=== PATIENT | female | born 1940 | race Caucasian/White ===

== ENCOUNTER → 2017-12-01 13:57 | Outpatient (CLI) | payer MEDICARE, SELFPAY ==
--- NOTE | 2017-12-01 14:00 | BI_ITS ---
MAMMOGRAPHY - BILATERAL SCREENING REASON FOR EXAM: Female, 77 years old. Routine annual screening examination. PERTINENT HISTORY: Non-contributory. TECHNIQUE: Digital bilateral breast alli (3D mammographic acquisition) in the CC and MLO projections. 2-D mediolateral oblique (MLO) and craniocaudad (CC) views of both breasts were obtained. CAD: Full Field Digital Mammography with Computer Added Detection was performed. COMPARISON: Comparison is made with prior study dated August 07, 2016 and September 25, 2014. FINDINGS: Breast Composition: There are scattered areas of fibroglandular density. There are no dominant masses or suspicious calcifications. No other significant abnormalities are identified. There has been no significant change since the prior study. BI/SCREENING MAMM (CAD), BILAT IMPRESSION: Stable bilateral screening mammogram. Yearly follow-up mammogram recommended. (A) ASSESSMENT CATEGORY: BIRADS Category 1: Negative. A letter regarding these results will be sent to the patient by the facility within 30 days. Approximately 10% of breast cancers are not detected by mammography. A normal mammogram should not delay biopsy of a clinically suspicious abnormality. [id number] Electronically Signed: Constantine Marquez MD at 14:09 EDT Tel [phone], Service support ,
== END ==
PROVIDERS: Family Provider Internal Medicine; PCP Internal Medicine; Visit Provider Internal Medicine
DX: Z12.31 Encounter for screening mammogram for malignant neoplasm of breast (principal)
CPT/HCPCS: 77063; 77067

== ENCOUNTER → 2017-12-15 11:27 | Outpatient (CLI) | payer MEDICARE, SELFPAY ==
[2017-12-15 11:35] LABS: Bacteria 0 SEEN /hpf (None Seen); Mucous, Urine 0 SEEN /hpf (<or=2+)
[2017-12-15 14:06] LABS: Absolute Lymphocyte Count 1.95 X10^3/ul (0.83-4.51); Absolute Neutrophil Count 4.4 X10^3/uL (2.0-7.7); Basophil# 0.03 X10^3/uL; Basophil% 0.4 % (0-1); Eosinophil# 0.11 X10^3/uL; Eosinophils% 1.5 % (0-5); Hematocrit 44.7 % (37-47); Hemoglobin 14.7 g/dl (12.0-15.0); Lymphocyte # 1.95 X10^3/ul (4.0); Lymphocyte % 27.4 % (19-41); Mean Corp Hgb Conc 32.9 g/gl (32-36); Mean Corpuscular Hgb 28.2 pg (27.0-32.0); Mean Corpuscular Volume 85.8 fL (81-99); Mean Platelet Vol. 10.1 fl (6.2-12.0); Monocyte# 0.67 X10^3/uL; Monocyte% 9.4 % (0-10); Neutrophil # 4.36 X10^3/uL (2.7-7.7); Neutrophil % 61.3 % (47-70); Platelet Count 239 K/mm3 (150-450); RBC Distribution Width CV 13.5 % (11.6-14.6); RBC Distribution Width SD 41.9 fl (35.1-43.9); Red Blood Count 5.21 M/mm3 (4.2-5.4); White Blood Count 7.1 K/mm3 (4.4-11.0)
[2017-12-15 14:18] LABS: POSITIVE COUNT NO; POSITIVE DIFFERENTIAL NO; POSITIVE MORPHOLOGY NO
[2017-12-15 14:28] LABS: Color, Urine Yellow (Yellow); Glucose, Dipstick Normal (Normal); Ketone-Dipstick Negative (Negative); Leukocyte Esterase-Dipstick 100 /ul (Negative); Nitrite-Dipstick Negative (Negative); Occult Blood-Urine 10 /ul (Negative); Protein-Dipstick 15 mg/dl (Negative); Specific Gravity, Urine 1.015 (1.002-1.030); Urine Bilirubin Dipstick Negative (Negative); Urine Clarity Sl. Cloudy (Clear); Urine Urobilinogen Normal (Normal)
[2017-12-15 14:29] LABS: ALB/GLOB Ratio 1.1 RATIO (0.9-2.4); AST(SGOT) 18 U/L (15-37); Alanine Aminotransfer ALT/SGPT 22 U/L (13-56); Albumin, Serum 3.7 g/dL (3.2-5.0); Alkaline Phosphatase 90 U/L (45-117); Anion Gap 6 (5-15); BUN 16 mg/dL (7-18); BUN/Creat Ratio 23.1 RATIO (10-20); Calcium,Total 8.7 mg/dL (8.5-10.1); Chloride 104 mmol/L (98-107); Cholesterol 144 mg/dL (200); Creatinine, Serum 0.69 mg/dL (0.55-1.02); EST Glomerular Filtration Rate 88 mL/min (>60); Est Glom Filt Rate - Afr Amer 106 mL/min (>60); Free T3 2.6 pg/mL (2.18-3.98); Globulin 3.5 g/dL (2.2-4.2); Glucose 91 mg/dL (74-106); High Density Lipoprotein 56 mg/dL; Potassium 3.9 mmol/L (3.5-5.1); Protein, Total 7.2 g/dL (6.4-8.2); Sodium Level 140 mmol/L (136-145); T4 Free Direct 1.03 ng/dL (0.76-1.46); Thyroid Stim Hormone (TSH) 2.93 uIU/mL (0.358-3.74); Triglycerides 96 mg/dL; Very Low Density Lipoprotein 19 mg/dL (5-40)
[2017-12-15 14:41] LABS: Red Blood Cells-Urine 0-5 SEEN /hpf (0-5); Squamous Epithelial Cells - UA 0-5 SEEN /hpf (5-10); White Blood Cells 10-25 SEEN /hpf (0-5)
[2017-12-15 14:50] LABS: Microalbumin,Random Urine 59.6 mg/L (NO RANGE EST.); Microalbumin:Creatinine Ratio 60.5 mg/g CRE (<30 mg/g CRE)
== END ==
PROVIDERS: Family Provider Internal Medicine; PCP Internal Medicine; Visit Provider Internal Medicine
DX: E03.9 Hypothyroidism, unspecified (principal); E78.4 Other hyperlipidemia; R73.01 Impaired fasting glucose
CPT/HCPCS: 36415; 80053; 80061; 81001; 82043; 82570; 84439; 84443; 84481; 85025

== ENCOUNTER → 2018-03-16 16:19 | Outpatient (CLI) | payer MEDICARE, SELFPAY ==
--- NOTE | 2018-03-16 16:22 | RAD_ITS ---
STUDY: X-RAY CHEST REASON FOR EXAM: Female, 77 years old. Cough. TECHNIQUE: Frontal and lateral views of the chest. COMPARISON: 07/02/2017 FINDINGS: There is hyperinflation of the lungs consistent with chronic obstructive lung disease (COPD). Increased density in the lung bases, especially the right, which could be mild infiltrates. No effusions. There is no demonstrated pleural abnormality. Normal size heart. Normal mediastinum and paola. Normal visualized pulmonary arteries. Normal visualized aortic arch and descending thoracic aorta. There are diffuse degenerative changes of the visualized thoracic spine. Normal visualized ribs, clavicles, and shoulders. There is no demonstrated abnormality of the visualized soft tissue structures of the upper abdomen. RAD/Chest PA and Lateral IMPRESSION: (COPD). Increased density in the lung bases, especially the right, which could be mild infiltrates. Electronically Signed: Elmer Ortiz MD at 23:54 EDT , Service support ,
== END ==
PROVIDERS: Family Provider Internal Medicine; PCP Internal Medicine; Visit Provider Physician Assistant
DX: R05 Cough (principal)
CPT/HCPCS: 71046

== ENCOUNTER 2018-03-26 12:09 | Inpatient (IN) | payer MEDICARE, SELFPAY ==
[2018-03-26] VITALS (8 sets, daily range): BP systolic 88–146; BP diastolic 51–85; PULSE 77–114; RESP 16–40; TEMP 36.9–39.2; O2SAT 92–100; BMI 18.8; BMI 18.4
--- NOTE | 2018-03-26 12:34 | EKG12_ITS ---
Test Reason : ADMT Blood Pressure : / mmHG Vent. Rate : 086 BPM Atrial Rate : 086 BPM P-R Int : 156 ms QRS Dur : 080 ms QT Int : 350 ms P-R-T Axes : 066 061 063 degrees QTc Int : 418 ms Normal sinus rhythm Normal ECG When compared with ECG of 26-MAR-2018 12:11, MANUAL COMPARISON REQUIRED, DATA IS UNCONFIRMED Confirmed by HARIS LEYVA, LEAH ([id number]), editor producer WALKER PEDERSEN ([id number]) on 04/01/2018 2:38:19 PM Referred By: Cleo Fall Confirmed By:LEAH CARBALLO MD
--- NOTE | 2018-03-26 12:36 | ED.DCSUM_ITS ---
- ER Visit Summary Date of Service: 03/26/18 Chief Complaint: Chest pain History of Present Illness: The patient is a 77 F presenting with chest pain. This started 2 days ago. Pain has been intermittent. She states it feels like an elephant sitting on her chest. She has mild shortness of breath. She has had a nonproductive cough. She denies nausea or vomiting. She has no PE/DVT risk factors. She has a history of hypercholesterolemia. She is not a smoker. Physical Examination: Vitals are stable. Patient is afebrile. Alert no acute distress. HEENT exam is unremarkable. Neck is supple. Lungs are clear and equal bilaterally. Heart is regular rate and rhythm. Abdomen is soft nontender nondistended. Extremities are unremarkable. Skin is warm and dry. No focal neurologic deficit. Remainder of exam is unremarkable. Emergency Department Course and Treatment: EKG is sinus rate of 85 with no acute ischemic changes. Chest x-ray shows no acute process. CBC shows a white count of 11.4. Chemistries unremarkable. Troponin is negative. Patient was given aspirin on arrival. On reevaluation she is resting comfortably. Discussed with the hospitalist for observation. Disposition: Observation Impression: Chest pain This note was generated with [employer] dictation software. It may contain incorrect words, spelling, and punctuation that were not noted in review of the chart prior to signing ED Disposition - Plan for ED Patient: Chief Complaint: Chest Pain Referrals: Abeba Castanon DO [Primary Care Provider] -
--- NOTE | 2018-03-26 12:37 | RAD_ITS ---
STUDY: X-RAY CHEST REASON FOR EXAM: Female, 77 years old. Chest pain, heaviness and asthma. TECHNIQUE: AP upright portable view. COMPARISON: 03/16/2018. FINDINGS: Pulmonary hyperinflation. No suspicious pulmonary nodules or infiltrates. There is no demonstrated pleural abnormality. Normal size heart. Normal mediastinum and paola. Normal visualized pulmonary arteries. Normal visualized aortic arch and descending thoracic aorta. Normal visualized thoracic spine. Normal visualized ribs, clavicles, and shoulders. There is no demonstrated abnormality of the visualized soft tissue structures of the upper abdomen. RAD/Chest 1 View (Portable) IMPRESSION: 1. No acute cardiopulmonary pathology. 2. COPD. 3. No interval change when compared to 03/16/2018. Electronically Signed: Jackson Stapleton MD at 13:08 EDT , Service support ,
[2018-03-26 12:45] LABS: Absolute Lymphocyte Count 1.52 X10^3/ul (0.83-4.51); Absolute Neutrophil Count 9.2 X10^3/uL (2.0-7.7); Basophil# 0.01 X10^3/uL; Basophil% 0.1 % (0-1); Eosinophil# 0.01 X10^3/uL; Eosinophils% 0.1 % (0-5); Hematocrit 44.5 % (37-47); Hemoglobin 14.6 g/dl (12.0-15.0); Lymphocyte # 1.52 X10^3/ul (4.0); Lymphocyte % 13.4 % (19-41); Mean Corp Hgb Conc 32.8 g/gl (32-36); Mean Corpuscular Volume 85.2 fL (81-99); Mean Platelet Vol. 9.3 fl (6.2-12.0); Monocyte# 0.61 X10^3/uL; Monocyte% 5.4 % (0-10); Neutrophil # 9.19 X10^3/uL (2.7-7.7); Neutrophil % 80.8 % (47-70); POSITIVE COUNT NO; POSITIVE DIFFERENTIAL NO; POSITIVE MORPHOLOGY NO; Platelet Count 259 K/mm3 (150-450); RBC Distribution Width CV 13.5 % (11.6-14.6); RBC Distribution Width SD 42.2 fl (35.1-43.9); Red Blood Count 5.22 M/mm3 (4.2-5.4); White Blood Count 11.4 K/mm3 (4.4-11.0)
[2018-03-26] MEDS: Aspirin 81 MG TAB.CHEW 324 MG PO (12:57)
[2018-03-26 13:03] LABS: Anion Gap 13 (5-15); BUN 19 mg/dL (7-18); BUN/Creat Ratio 23.5 RATIO (10-20); Calcium,Total 8.9 mg/dL (8.5-10.1); Chloride 100 mmol/L (98-107); Creatinine, Serum 0.81 mg/dL (0.55-1.02); EST Glomerular Filtration Rate 73 mL/min (>60); Est Glom Filt Rate - Afr Amer 88 mL/min (>60); Estimated Creatinine Clearance 50.74 ml/min; Glucose 100 mg/dL (74-106); Potassium 3.7 mmol/L (3.5-5.1); Sodium Level 137 mmol/L (136-145)
--- NOTE | 2018-03-26 16:11 | NURSING ---
DR BARNES FOR DR BANEGAS
--- NOTE | 2018-03-26 16:14 | HP.PCM_ITS ---
Problem List (1) Chest pain Status: Acute Qualifiers: Chest pain type: unspecified Qualified Code(s): R07.9 - Chest pain, unspecified (2) Hypothyroidism Status: Acute (3) COPD (chronic obstructive pulmonary disease) Status: Acute Qualifiers: COPD type: unspecified COPD Qualified Code(s): J44.9 - Chronic obstructive pulmonary disease, unspecified History of Present Illness Date of Admission: 03/26/18 Chief Complaint: Chest pain The patient is a 77 year old F with PMHx of Hypothyroidism, hyperlipidemia, COPD not on oxygen, who comes in with chest pain. Chest pain was described as chest pressure, substernal, with no radiation to the neck. No diaphoresis or dizziness or SOB. She has a cough which has been persistent for a while. [facility] and prescribed a 10 day course of antibiotics with no change. Denies fever, chills, palpitations, leg swelling. Vitals in the ED are Temp 98.5F, HR 77, BP 133/68, RR 16, Spo2 100% on 2L oxygen. Labs show WBC of 11.4, Hb 14.6, Plt 259, Na 137, K 3.7, Cl 100, HCO3 24, BUN 19 , Cr 0.81. Chest x-ray showed no acute cardiopulmonary process. Past Medical History Medical History: Medical History (Last Updated 03/16/18 @ 16:19 by Sandrita Jara) Asthma J45.909 Allergies No Known Allergies Allergy (Verified 03/16/18 16:17) Home Medications: Ambulatory Orders Medication Instructions Recorded Aspirin 81 mg PO QHS 07/02/17 Cholecalciferol (Vitamin D3) 4,000 unit PO LUNCH 07/02/17 [Vitamin D3] Levothyroxine [Synthroid] 50 mcg PO DAILY 07/02/17 Simvastatin [Zocor] 1 tab PO QHS 07/02/17 budesonide-formoterol HFA 160 1 puff INHALATION BID 03/16/18 mcg-4.5 mcg/actuation aerosol inhaler Amoxicillin [Amoxil] 1,000 mg PO Q12H 03/26/18 Surgical History: hysterectomy Psychiatric History: No pertinent psych hx PRACTICE DIRECTOR History: No pertinent PRACTICE DIRECTOR history Lives: Spouse/ Significant Other, With Family Smoking Status: Never smoker Tobacco Use: Non-smoker Alcohol: None Drugs: None - *Family History Maternal History Items: No pertinent history Paternal History Items: No pertinent history Review of Systems Constitutional: Reports: Weakness. Denies: Anorexia, Chills, Fever, Weight Change Eyes: Denies: Blurred vision, Cataracts, Conjunctivae Inflammation HEENT: Reports: Nasal Congestion. Denies: Difficulty Hearing, Difficulty Swallowing, Head Aches, Sinus Congestion, Sinus Drainage Cardiovascular: Denies: Chest Pain, Claudication, Chest Pressure, Orthopnea, Palpitations Respiratory: Reports: Cough. Denies: Hemoptysis, Shortness of Breath, Shortness of breath at rest, Shortness of breath upon exertion, Sputum production Gastrointestinal: Denies: Abdominal Pain, Nausea, Vomiting Genitourinary: Denies: Dysuria, Frequency, Incontinence Gynecological: Denies: Breast symptoms, Excessively long or heavy periods Musculoskeletal: Denies: Joint Pain, Joint stiffness, Joint swelling, Joint Tenderness Skin: Denies: Rash, Wounds Neurological: Denies: Numbness, Tingling, Focal weakness Psychiatric: Denies: Anxiety, Depression, Homicidal Ideations, Suicidal Ideations Hematologic/ Lymphatic: Denies: Easy Bruising, Easy Bleeding VTE Information - Inpt Only VTE Present on Admission: No VTE Pharm Prophylaxis ordered?: Yes Patient Problems: Active and Suspected Problems (Last Updated 03/16/18 @ 16:19 by Sandrita Jara) Chest pain (Acute) Hypothyroidism (Acute) COPD (chronic obstructive pulmonary disease) (Acute) - Physical Exam General: Alert, Oriented x3, Cooperative, No apparent distress HEENT: Atraumatic, PERRLA, EOMI, Normocephalic Oral: Moist Mucosa Neck: Supple, No JVD, Negative Carotid Bruits Lungs: Clear to auscultation, Normal air movement Cardiovascular: Regular rate, Regular Rhythm, Normal S1, Normal S2, No murmurs Abdomen: Bowel Sounds Present, Soft, Non Tender, Non-Distended, No Hepato- splenomegaly Extremities: No edema Skin: No rashes, No breakdown Musculoskeletal: No Tenderness to Palpation of Joints or Extremities Lymphatic: No Cervical, Supraclavicular, or Inguinal Adenopathy Neurological: Cranial nerves II-XII grossly intact, Neuro grossly intact Psych/Mental Status: Normal Affect, Appropriate Vital Signs Temp Pulse Resp BP Pulse Ox 99.4 F H 85 23 H 146/85 H 95 03/26/18 12:10 03/26/18 12:10 03/26/18 12:10 03/26/18 12:10 03/26/18 12:10 Oxygen Flow Rate (L/min) 2 Oxygen Delivery Method Nasal Cannula Weight: 54.4 kg Body Mass Index (BMI) 18.8 Laboratory Tests Past 24 Hrs 03/26/18 03/26/18 12:20 12:20 WBC 11.4 H RBC 5.22 Hgb 14.6 Hct 44.5 MCV 85.2 MCH 28.0 MCHC 32.8 RDW 13.5 RDW Differential 42.2 Plt Count 259 MPV 9.3 Immature Gran % (Auto) 0.200 Neut % (Auto) 80.8 H Lymph % (Auto) 13.4 L Ogle % (Auto) 5.4 Eos % (Auto) 0.1 Baso % (Auto) 0.1 Absolute Neuts (auto) 9.2 H Absolute Lymphs (auto) 1.52 Total Counted Not Reportable Sodium 137 Potassium 3.7 Chloride 100 Carbon Dioxide 24.0 Anion Gap 13 BUN 19 H Creatinine 0.81 Estim Creat Clear Calc 50.74 Est GFR (MDRD) Af Amer 88 Est GFR (MDRD) Non-Af 73 BUN/Creatinine Ratio 23.5 H Glucose 100 Calcium 8.9 Troponin I < 0.015 Assessment/Plan All Active Problems (Last Updated 03/16/18 @ 16:19 by Sandrita Jara) Chest pain (Acute) Hypothyroidism (Acute) COPD (chronic obstructive pulmonary disease) (Acute) Bronchitis (Acute) 77 year old F with PMHx of Hypothyroidism, hyperlipidemia, COPD not on oxygen, who comes in with chest pain. Chest pain was described as chest pressure, substernal, with no radiation to the neck. No diaphoresis or dizziness or SOB 1. Chest pain, atypical, appears to have 2 components - reproducible right costosternal border tenderness and substernal chest pressure Vitals are stable, EKG shows no acute ST-T changes, initial troponin is negative. Plan: Admit to PCU, trend troponins, aspirin 81mg po daily, nitro prn, Tylenol prn for musculoskeltal pain 2. Acute bronchitis, h/o COPD, no signs of acute exacerbation, prn breathing treatments 3. Hypothyroidism, on levothyroxine 4. Hyperlipidemia, on statin, lipid profile in am 5. DVt Ppx- Heparin SC Code Visit OBSV E&M: 42242 Initial observation care L3
--- NOTE | 2018-03-26 16:24 | NURSING ---
PCU OBS CP PAINTSIL
--- NOTE | 2018-03-26 18:20 | EKG12_ITS ---
Test Reason : CHEST PAIN Blood Pressure : / mmHG Vent. Rate : 085 BPM Atrial Rate : 085 BPM P-R Int : 138 ms QRS Dur : 082 ms QT Int : 360 ms P-R-T Axes : 065 057 066 degrees QTc Int : 428 ms Normal sinus rhythm Normal ECG Confirmed by GARTH LEYVA, JORDAN ([id number]), continuity editor WALKER PEDERSEN ([id number]) on 03/30/2018 8:51:45 AM Referred By: Cleo Fall Confirmed By:JORDAN LIANG MD
[2018-03-26] MEDS: Budesonide Respules 0.5 MG/2 ML AMPUL.NEB. INHALATION (18:52)
[2018-03-26] MEDS: Ipratropium/Albuterol Sulfate 3 ML AMPUL.NEB INHALATION (18:52)
[2018-03-26] MEDS: Acetaminophen 500 MG Tablet 1000 MG PO (21:47)
[2018-03-26] MEDS: Atorvastatin Calcium 10 MG Tablet 5 MG PO (21:47)
[2018-03-26] MEDS: Heparin Injection (Vial) 5,000 UNIT/ML VIAL 5000 UNIT SC (21:48)
[2018-03-27] VITALS (18 sets, daily range): BP systolic 87–163; BP diastolic 50–75; PULSE 57–88; RESP 14–36; TEMP 36.4–38.2; O2SAT 93–99
[2018-03-27] MEDS: 0.9% NaCl Peripheral Flush Adult/Peds IV (00:41)
[2018-03-27] MEDS: 0.9% Normal Saline 1,000 ML 999 ML IV (00:41)
[2018-03-27] MEDS: 0.9% Normal Saline 1,000 ML 100 ML IV ×3 (01:52→22:20)
[2018-03-27] MEDS: Acetaminophen 500 MG Tablet 1000 MG PO ×3 (06:40→22:21)
[2018-03-27] MEDS: Levothyroxine 50 MCG Tablet PO (06:41)
[2018-03-27] MEDS: Budesonide Respules 0.5 MG/2 ML AMPUL.NEB. INHALATION ×2 (07:12→19:26)
[2018-03-27] MEDS: Ipratropium/Albuterol Sulfate 3 ML AMPUL.NEB INHALATION ×4 (07:12→19:26)
[2018-03-27 07:40] LABS: Anion Gap 13 (5-15); BUN 24 mg/dL (7-18); BUN/Creat Ratio 29.2 RATIO (10-20); Calcium,Total 8.7 mg/dL (8.5-10.1); Chloride 103 mmol/L (98-107); Cholesterol 128 mg/dL (200); Creatinine, Serum 0.82 mg/dL (0.55-1.02); EST Glomerular Filtration Rate 72 mL/min (>60); Est Glom Filt Rate - Afr Amer 87 mL/min (>60); Glucose 87 mg/dL (74-106); High Density Lipoprotein 39 mg/dL; Potassium 4.2 mmol/L (3.5-5.1); Sodium Level 140 mmol/L (136-145); Triglycerides 67 mg/dL; Very Low Density Lipoprotein 13 mg/dL (5-40)
--- NOTE | 2018-03-27 09:18 | EKG12_ITS ---
Test Reason : Blood Pressure : / mmHG Vent. Rate : 095 BPM Atrial Rate : 095 BPM P-R Int : 162 ms QRS Dur : 090 ms QT Int : 344 ms P-R-T Axes : 063 061 043 degrees QTc Int : 432 ms Normal sinus rhythm RSR' or QR pattern in V1 suggests right ventricular conduction delay Nonspecific T wave abnormality Abnormal ECG When compared with ECG of 26-MAR-2018 18:52, MANUAL COMPARISON REQUIRED, DATA IS UNCONFIRMED Confirmed by HARIS LEYVA, LEAH ([id number]), society editor WALKER PEDERSEN ([id number]) on 04/01/2018 2:36:58 PM Referred By: Cleo Fall Confirmed By:LEAH CARBALLO MD
[2018-03-27 09:56] LABS: Absolute Lymphocyte Count 1.67 X10^3/ul (0.83-4.51); Absolute Neutrophil Count 9.2 X10^3/uL (2.0-7.7); Basophil# 0.01 X10^3/uL; Basophil% 0.1 % (0-1); Hematocrit 38.9 % (37-47); Hemoglobin 12.6 g/dl (12.0-15.0); Lymphocyte # 1.67 X10^3/ul (4.0); Mean Corp Hgb Conc 32.4 g/gl (32-36); Mean Corpuscular Hgb 27.7 pg (27.0-32.0); Mean Corpuscular Volume 85.5 fL (81-99); Mean Platelet Vol. 9.3 fl (6.2-12.0); Monocyte# 1.04 X10^3/uL; Monocyte% 8.7 % (0-10); Neutrophil # 9.16 X10^3/uL (2.7-7.7); POSITIVE COUNT NO; POSITIVE DIFFERENTIAL NO; POSITIVE MORPHOLOGY NO; Platelet Count 232 K/mm3 (150-450); RBC Distribution Width CV 13.5 % (11.6-14.6); RBC Distribution Width SD 42.3 fl (35.1-43.9); Red Blood Count 4.55 M/mm3 (4.2-5.4); White Blood Count 11.9 K/mm3 (4.4-11.0)
[2018-03-27] MEDS: Aspirin 81 MG TAB.CHEW PO (10:18)
[2018-03-27] MEDS: Heparin Injection (Vial) 5,000 UNIT/ML VIAL 5000 UNIT SC ×2 (10:18→22:21)
[2018-03-27 13:03] LABS: Red Blood Cells-Urine 0 SEEN /hpf (0-5); White Blood Cells 0 SEEN /hpf (0-5)
[2018-03-27 13:09] LABS: Color, Urine Yellow (Yellow); Glucose, Dipstick Normal (Normal); Ketone-Dipstick 50 mg/dl (Negative); Leukocyte Esterase-Dipstick Negative /ul (Negative); Nitrite-Dipstick Negative (Negative); Occult Blood-Urine Negative /ul (Negative); Protein-Dipstick 30 mg/dl (Negative); Specific Gravity, Urine 1.025 (1.002-1.030); Urine Bilirubin Dipstick Negative (Negative); Urine Clarity Sl. Cloudy (Clear); Urine Urobilinogen 1 mg/dl (Normal)
[2018-03-27 13:10] LABS: Bedside Glucose 108 mg/dL (70-110)
[2018-03-27 13:17] LABS: Squamous Epithelial Cells - UA 0-5 SEEN /hpf (5-10)
[2018-03-27 13:18] LABS: Bacteria RARE /hpf (None Seen); Hyaline Cast 0-5 SEEN /lpf (0-5); Mucous, Urine 2+ /hpf (<or=2+)
--- NOTE | 2018-03-27 17:04 | PCM.PN.HOSP ---
Patient Problems: Active and Suspected Problems (Last Updated 03/16/18 @ 16:19 by Sandrita Jara) Chest pain (Acute) Hypothyroidism (Acute) COPD (chronic obstructive pulmonary disease) (Acute) Subjective: Patient was seen and examined. She complains of feeling very unwell and tired. Denies focal symptoms such as running nose, sore throat, cough. She spiked a temp last night. No rash seen. Objective: Physical Exam General: Alert, Oriented x3, Cooperative, No apparent distress, looks unwell HEENT: Atraumatic, PERRLA, EOMI, Normocephalic Oral: Moist Mucosa Neck: Supple, No JVD, Negative Carotid Bruits Lungs: Clear to auscultation, Normal air movement Cardiovascular: Regular rate, Regular Rhythm, Normal S1, Normal S2, No murmurs Abdomen: Bowel Sounds Present, Soft, Non Tender, Non-Distended, No Hepato-splenomegaly Extremities: No edema Skin: No rashes, No breakdown Musculoskeletal: No Tenderness to Palpation of Joints or Extremities Lymphatic: No Cervical, Supraclavicular, or Inguinal Adenopathy Neurological: Cranial nerves II-XII grossly intact, Neuro grossly intact Psych/Mental Status: Normal Affect, Appropriate Vitals/I&O's: Vital Signs Temp Pulse Resp BP Pulse Ox 99.2 F H 80 16 120/75 94 03/27/18 16:53 03/27/18 15:15 03/27/18 15:15 03/27/18 15:15 03/27/18 15:15 Oxygen Delivery Method Room Air Weight: 53.4 kg Body Mass Index (BMI) 18.4 Intake and Output for Last 24 Hours 03/25/18 03/26/18 03/27/18 23:59 23:59 23:59 Intake Total 2508 / 2508 Output Total 470 / 470 Balance 2037 / 2037 Laboratory Results 03/26/18 18:10: Troponin I < 0.015 03/26/18 19:59: Troponin I < 0.015 03/27/18 06:52: Sodium 140, Potassium 4.2, Chloride 103, Carbon Dioxide 24.0, Anion Gap 13, BUN 24 H, Creatinine 0.82, Estim Creat Clear Calc 49.20, Est GFR (MDRD) Af Amer 87, Est GFR (MDRD) Non-Af 72, BUN/Creatinine Ratio 29.2 H, Glucose 87, Calcium 8.7, Triglycerides 67, Cholesterol 128, LDL Cholesterol 76, VLDL Cholesterol 13, HDL Cholesterol 39 L 03/27/18 09:48: WBC 11.9 H, RBC 4.55, Hgb 12.6, Hct 38.9, MCV 85.5, MCH 27.7, MCHC 32.4, RDW 13.5, RDW Differential 42.3, Plt Count 232, MPV 9.3, Immature Gran % (Auto) 0.200, Neut % (Auto) 77.0 H, Lymph % (Auto) 14.0 L, [place] % (Auto) 8.7, Eos % (Auto) 0.0, Baso % (Auto) 0.1, Absolute Neuts (auto) 9.2 H, Absolute Lymphs (auto) 1.67, Total Counted Not Reportable 03/27/18 12:55: Urine Color Yellow, Urine Clarity Sl. Cloudy, Urine pH 5.0, Ur Specific [place] 1.025, Urine Protein 30 H, Urine Glucose (UA) Normal, Urine Ketones 50 H, Urine Occult Blood Negative, Urine Nitrite Negative, Urine Bilirubin Negative, Urine Urobilinogen 1 H, Ur Leukocyte Esterase Negative, Urine RBC 0 SEEN, Urine WBC 0 SEEN, Ur Squamous Epith Cells 0-5 SEEN, Urine Bacteria RARE, Hyaline Casts 0-5 SEEN, Urine Mucus 2+ 03/27/18 13:04: POC Glucose 108 Current Medications Acetaminophen (Tylenol) 1,000 mg PO TID [facility] Last Admin: 03/27/18 13:05 Dose: 1,000 mg Albuterol/Ipratropium (Duoneb) 3 ml INHALATION Q4HWA.RT [facility] Last Admin: 03/27/18 15:06 Dose: 3 ml Aspirin (Aspirin, Baby) 81 mg PO DAILYCM [facility] Last Admin: 03/27/18 10:18 Dose: 81 mg Atorvastatin Calcium (Lipitor) 5 mg PO QHS [facility] Last Admin: 03/26/18 21:47 Dose: 5 mg Bisacodyl (Dulcolax) 5 mg PO DAILY PRN PRN PRN Reason: Constipation Budesonide (Pulmicort Aerosol) 0.5 mg INHALATION Q12H.RT [facility] Last Admin: 03/27/18 07:12 Dose: 0.5 mg Cholecalciferol (Vitamin D) 4,000 unit PO DAILY [facility] Last Admin: 03/27/18 10:18 Dose: 4,000 unit Heparin Sodium (Porcine) (Heparin Na) 5,000 unit SC Q12 [facility] Last Admin: 03/27/18 10:18 Dose: 5,000 unit Sodium Chloride () 1,000 mls @ 100 mls/hr IV .Q10H [facility] Last Admin: 03/27/18 10:19 Dose: 100 mls/hr Levothyroxine Sodium (Synthroid) 50 mcg PO DAILY@0600 [facility] Last Admin: 03/27/18 06:41 Dose: 50 mcg Magnesium Hydroxide (Milk Of Magnesia) 30 ml PO DAILY PRN PRN Reason: Constipation Nitroglycerin (Nitrostat) 0.4 mg SUBLINGUAL Q5M PRN PRN Reason: CHEST PAIN Nutritional Formula (Lactose Free) (Ensure Enlive) 120 ml PO 4X/DAY [facility] Psyllium Hydrophilic Mucilloid (Metamucil) 1 packet PO DAILY PRN PRN PRN Reason: CONSTIPATION Sodium Chloride () 5 - 30 ml IV UD PRN PRN Reason: SALINE FLUSH Last Admin: 03/27/18 00:41 Dose: 10 ml Medical Necessity - Tobacco Use Smoking Status: Never smoker Tobacco Use: Non-smoker Assessment/Plan All Active Problems (Last Updated 03/16/18 @ 16:19 by Sandrita Jara) Chest pain (Acute) Hypothyroidism (Acute) COPD (chronic obstructive pulmonary disease) (Acute) Bronchitis (Acute) 77 year old F with PMHx of Hypothyroidism, hyperlipidemia, COPD not on oxygen, who comes in with chest pain. Chest pain was described as chest pressure, substernal, with no radiation to the neck. No diaphoresis or dizziness or SOB 1. Chest pain, atypical, appears to have 2 components - reproducible right costosternal border tenderness and substernal chest pressure Vitals are stable, EKG shows no acute ST-T changes, initial troponin is negative. Repeat Chest xray this am is also unremarkable, Will plan for stress test in am 2. Generalised weakness, unclear etiology, likely viral syndrome, will continue to monitor for focal symptoms, respiratory panel is pending 3. Acute bronchitis, h/o COPD, no signs of acute exacerbation, prn breathing treatments 4. Hypothyroidism, on levothyroxine 5. Hyperlipidemia, on statin, lipid profile in am 6. DVt Ppx- Heparin SC Code Visit Inpatient E&M: 74666 Subs Hosp L2
--- NOTE | 2018-03-27 17:07 | PN_ITS ---
Patient Problems: Active and Suspected Problems (Last Updated 03/16/18 @ 16:19 by Sandrita Jara) Chest pain (Acute) Hypothyroidism (Acute) COPD (chronic obstructive pulmonary disease) (Acute) Subjective: Patient was seen and examined. She complains of feeling very unwell and tired. Denies focal symptoms such as running nose, sore throat, cough. She spiked a temp last night. No rash seen. Objective: Physical Exam General: Alert, Oriented x3, Cooperative, No apparent distress, looks unwell HEENT: Atraumatic, PERRLA, EOMI, Normocephalic Oral: Moist Mucosa Neck: Supple, No JVD, Negative Carotid Bruits Lungs: Clear to auscultation, Normal air movement Cardiovascular: Regular rate, Regular Rhythm, Normal S1, Normal S2, No murmurs Abdomen: Bowel Sounds Present, Soft, Non Tender, Non-Distended, No Hepato- splenomegaly Extremities: No edema Skin: No rashes, No breakdown Musculoskeletal: No Tenderness to Palpation of Joints or Extremities Lymphatic: No Cervical, Supraclavicular, or Inguinal Adenopathy Neurological: Cranial nerves II-XII grossly intact, Neuro grossly intact Psych/Mental Status: Normal Affect, Appropriate Vitals/I&O's: Vital Signs Temp Pulse Resp BP Pulse Ox 99.2 F H 80 16 120/75 94 03/27/18 16:53 03/27/18 15:15 03/27/18 15:15 03/27/18 15:15 03/27/18 15:15 Oxygen Delivery Method Room Air Weight: 53.4 kg Body Mass Index (BMI) 18.4 Intake and Output for Last 24 Hours 03/25/18 03/26/18 03/27/18 23:59 23:59 23:59 Intake Total 2508 / 2508 Output Total 470 / 470 Balance 2037 / 2037 Laboratory Results 03/26/18 18:10: Troponin I < 0.015 03/26/18 19:59: Troponin I < 0.015 03/27/18 06:52: Sodium 140, Potassium 4.2, Chloride 103, Carbon Dioxide 24.0, Anion Gap 13, BUN 24 H, Creatinine 0.82, Estim Creat Clear Calc 49.20, Est GFR ( MDRD) Af Amer 87, Est GFR (MDRD) Non-Af 72, BUN/Creatinine Ratio 29.2 H, Glucose 87, Calcium 8.7, Triglycerides 67, Cholesterol 128, LDL Cholesterol 76, VLDL Cholesterol 13, HDL Cholesterol 39 L 03/27/18 09:48: WBC 11.9 H, RBC 4.55, Hgb 12.6, Hct 38.9, MCV 85.5, MCH 27.7, MCHC 32.4, RDW 13.5, RDW Differential 42.3, Plt Count 232, MPV 9.3, Immature Gran % (Auto) 0.200, Neut % (Auto) 77.0 H, Lymph % (Auto) 14.0 L, [place] % (Auto) 8.7, Eos % (Auto) 0.0, Baso % (Auto) 0.1, Absolute Neuts (auto) 9.2 H, Absolute Lymphs (auto) 1.67, Total Counted Not Reportable 03/27/18 12:55: Urine Color Yellow, Urine Clarity Sl. Cloudy, Urine pH 5.0, Ur Specific [place] 1.025, Urine Protein 30 H, Urine Glucose (UA) Normal, Urine Ketones 50 H, Urine Occult Blood Negative, Urine Nitrite Negative, Urine Bilirubin Negative, Urine Urobilinogen 1 H, Ur Leukocyte Esterase Negative, Urine RBC 0 SEEN, Urine WBC 0 SEEN, Ur Squamous Epith Cells 0-5 SEEN, Urine Bacteria RARE, Hyaline Casts 0-5 SEEN, Urine Mucus 2+ 03/27/18 13:04: POC Glucose 108 Current Medications Acetaminophen (Tylenol) 1,000 mg PO TID [facility] Last Admin: 03/27/18 13:05 Dose: 1,000 mg Albuterol/Ipratropium (Duoneb) 3 ml INHALATION Q4HWA.RT [facility] Last Admin: 03/27/18 15:06 Dose: 3 ml Aspirin (Aspirin, Baby) 81 mg PO DAILYCM [facility] Last Admin: 03/27/18 10:18 Dose: 81 mg Atorvastatin Calcium (Lipitor) 5 mg PO QHS [facility] Last Admin: 03/26/18 21:47 Dose: 5 mg Bisacodyl (Dulcolax) 5 mg PO DAILY PRN PRN PRN Reason: Constipation Budesonide (Pulmicort Aerosol) 0.5 mg INHALATION Q12H.RT [facility] Last Admin: 03/27/18 07:12 Dose: 0.5 mg Cholecalciferol (Vitamin D) 4,000 unit PO DAILY [facility] Last Admin: 03/27/18 10:18 Dose: 4,000 unit Heparin Sodium (Porcine) (Heparin Na) 5,000 unit SC Q12 [facility] Last Admin: 03/27/18 10:18 Dose: 5,000 unit Sodium Chloride () 1,000 mls @ 100 mls/hr IV .Q10H [facility] Last Admin: 03/27/18 10:19 Dose: 100 mls/hr Levothyroxine Sodium (Synthroid) 50 mcg PO DAILY@0600 [facility] Last Admin: 03/27/18 06:41 Dose: 50 mcg Magnesium Hydroxide (Milk Of Magnesia) 30 ml PO DAILY PRN PRN Reason: Constipation Nitroglycerin (Nitrostat) 0.4 mg SUBLINGUAL Q5M PRN PRN Reason: CHEST PAIN Nutritional Formula (Lactose Free) (Ensure Enlive) 120 ml PO 4X/DAY [facility] Psyllium Hydrophilic Mucilloid (Metamucil) 1 packet PO DAILY PRN PRN PRN Reason: CONSTIPATION Sodium Chloride () 5 - 30 ml IV UD PRN PRN Reason: SALINE FLUSH Last Admin: 03/27/18 00:41 Dose: 10 ml Medical Necessity - Tobacco Use Smoking Status: Never smoker Tobacco Use: Non-smoker Assessment/Plan All Active Problems (Last Updated 03/16/18 @ 16:19 by Sandrita Jara) Chest pain (Acute) Hypothyroidism (Acute) COPD (chronic obstructive pulmonary disease) (Acute) Bronchitis (Acute) 77 year old F with PMHx of Hypothyroidism, hyperlipidemia, COPD not on oxygen, who comes in with chest pain. Chest pain was described as chest pressure, substernal, with no radiation to the neck. No diaphoresis or dizziness or SOB 1. Chest pain, atypical, appears to have 2 components - reproducible right costosternal border tenderness and substernal chest pressure Vitals are stable, EKG shows no acute ST-T changes, initial troponin is negative. Repeat Chest xray this am is also unremarkable, Will plan for stress test in am 2. Generalised weakness, unclear etiology, likely viral syndrome, will continue to monitor for focal symptoms, respiratory panel is pending 3. Acute bronchitis, h/o COPD, no signs of acute exacerbation, prn breathing treatments 4. Hypothyroidism, on levothyroxine 5. Hyperlipidemia, on statin, lipid profile in am 6. DVt Ppx- Heparin SC Code Visit Inpatient E&M: 05607 Subs Hosp L2
[2018-03-27] MEDS: levoFLOXacin IV 750 MG/150 ML BAG 100 MG IV (22:20)
[2018-03-27] MEDS: Atorvastatin Calcium 10 MG Tablet 5 MG PO (22:21)
--- NOTE | 2018-03-27 23:51 | PCM.PN.BLA ---
Progress Note I was called by the nurse because this patient has had a consistently eleavted temp >100 despite scheduled tylenol and she started to shake with chills this evening. She has been bolused one time last night which supported her BP well, however she has also had a leukocytosis. She has initially been managed as cardiac chest pain and a viral syndrome, especially since she was recently treated for a pneumonia as an outpatient with amoxicillin and she took her last pill the day prior to admission. I broadened her coverage tonight with levaquin as amoxicillin by itself is not enough for CAP. Her CXR is clear here, however per the daughter, the CXR at the Urgent care demonstrated a consolidation. I will also check for influenza, strep ag and legionella ag.
[2018-03-28] VITALS (15 sets, daily range): BP systolic 119–166; BP diastolic 56–67; PULSE 58–92; RESP 16–20; TEMP 37–37.8; O2SAT 94–95
--- NOTE | 2018-03-28 05:00 | EKG12_ITS ---
Test Reason : AM Blood Pressure : / mmHG Vent. Rate : 058 BPM Atrial Rate : 058 BPM P-R Int : 154 ms QRS Dur : 082 ms QT Int : 390 ms P-R-T Axes : 065 059 061 degrees QTc Int : 382 ms Sinus bradycardia with sinus arrhythmia Otherwise normal ECG When compared with ECG of 27-MAR-2018 11:29, MANUAL COMPARISON REQUIRED, DATA IS UNCONFIRMED Confirmed by HARIS LEYVA, LEAH ([id number]), supervising editor news reel WALKER PEDERSEN ([id number]) on 04/01/2018 2:35:13 PM Referred By: Cleo Fall Confirmed By:LEAH CARBALLO MD
[2018-03-28 05:47] LABS: BUN 20 mg/dL (7-18); BUN/Creat Ratio 33.1 RATIO (10-20); Calcium,Total 8.3 mg/dL (8.5-10.1); Chloride 105 mmol/L (98-107); EST Glomerular Filtration Rate 102 mL/min (>60); Est Glom Filt Rate - Afr Amer 124 mL/min (>60); Estimated Creatinine Clearance 40.35 ml/min; Glucose 115 mg/dL (74-106); Sodium Level 138 mmol/L (136-145)
[2018-03-28 05:48] LABS: Anion Gap 11 (5-15)
[2018-03-28] MEDS: Acetaminophen 500 MG Tablet 1000 MG PO ×3 (06:08→21:17)
[2018-03-28] MEDS: Levothyroxine 50 MCG Tablet PO (06:09)
[2018-03-28 06:15] LABS: Absolute Lymphocyte Count 1.94 X10^3/ul (0.83-4.51); Absolute Neutrophil Count 9.2 X10^3/uL (2.0-7.7); Basophil# 0.01 X10^3/uL; Basophil% 0.1 % (0-1); Hematocrit 36.6 % (37-47); Hemoglobin 12.2 g/dl (12.0-15.0); Lymphocyte # 1.94 X10^3/ul (4.0); Lymphocyte % 15.8 % (19-41); Mean Corp Hgb Conc 33.3 g/gl (32-36); Mean Corpuscular Hgb 28.1 pg (27.0-32.0); Mean Corpuscular Volume 84.3 fL (81-99); Mean Platelet Vol. 10.2 fl (6.2-12.0); Monocyte# 1.07 X10^3/uL; Monocyte% 8.7 % (0-10); Neutrophil # 9.23 X10^3/uL (2.7-7.7); Neutrophil % 75.2 % (47-70); Platelet Count 241 K/mm3 (150-450); RBC Distribution Width CV 13.5 % (11.6-14.6); RBC Distribution Width SD 40.9 fl (35.1-43.9); Red Blood Count 4.34 M/mm3 (4.2-5.4); White Blood Count 12.3 K/mm3 (4.4-11.0)
[2018-03-28 06:34] LABS: POSITIVE COUNT NO; POSITIVE DIFFERENTIAL NO; POSITIVE MORPHOLOGY NO
[2018-03-28 06:40] LABS: International Normalized Ratio 1.2; Prothrombin Time (Protime)PT. 15.6 SECONDS (11.7-14.9)
--- NOTE | 2018-03-28 06:50 | NURSING ---
Patient's daughter, Daniela, called this nurse to get update on pt. condition. Pt. had no change overnight, still running temp. 100.8. Newest labs were negative for flu and urine strep legionella and pneumonia.Daughter informed that patient may refuse her stress test today because she is feeling so poorly and her hands are still trembling severely along with malaise and weakness. Daughter verbalized understanding and felt patient was too ill at this time to go for stress test.
[2018-03-28] MEDS: Ipratropium/Albuterol Sulfate 3 ML AMPUL.NEB INHALATION ×3 (07:03→18:59)
[2018-03-28] MEDS: Budesonide Respules 0.5 MG/2 ML AMPUL.NEB. INHALATION (07:03)
[2018-03-28] MEDS: 0.9% Normal Saline 1,000 ML 100 ML IV ×2 (08:42→19:43)
--- NOTE | 2018-03-28 09:44 | CT_ITS ---
STUDY: CT CHEST WITHOUT CONTRAST REASON FOR EXAM: Female, 77 years old. Cough. COPD, asthma and fever. RADIATION DOSAGE (If Supplied By Facility): CTDIvol = ( 6.4 ) mGy, DLP = ( 217.60 ) mGycm TECHNIQUE: Transaxial imaging was performed without the administration of intravenous contrast material. Multiplanar coronal and sagittal images were reformatted. Individualized dose optimization techniques were used for this CT. COMPARISON: Comparison is made with prior chest radiograph dated March 26, 2018. FINDINGS: Mild degree of emphysematous changes more prominent in the upper lobes. Small bilateral pleural effusions with bibasilar infiltration and/or atelectasis. There is also evidence of bronchiectasis in the left lower lobe. There is a 1.2 cm x 1.3 cm spiculated nodular density in the anterior aspect of the right lower lobe adjacent to the right hemidiaphragm. There is also evidence of a 0.6 cm noncalcified nodule in the anterior aspect of the right lower lobe. Irregular nodular density measuring 1.4 cm x 0.7 cm also seen in the anterior aspect of the lingular segment of the left upper lobe. Correlation with a PET scan is recommended. There are calcifications of the coronary arteries. There are multiple small lymph nodes within the mediastinum, which are normal in size and morphology most compatible with reactive lymph hyperplasia. Normal hilar regions. Normal unenhanced pulmonary arteries. There is atherosclerotic calcification of the aortic arch with tortuosity and elongation of the aortic arch and descending thoracic aorta. There are multi-level degenerative changes of the thoracic spine. Mildly distended esophagus with oral contrast within it. CT/Chest without Contrast IMPRESSION: Emphysematous changes. Small bilateral pleural effusions with bibasilar atelectasis and/or infiltrates. Scattered nodular densities in both lower lobes as described. Correlation with the PET scan is recommended. Electronically Signed: Constantine Marquez MD at 11:06 EDT Tel [phone], Service support ,
[2018-03-28] MEDS: Aspirin 81 MG TAB.CHEW PO (09:48)
[2018-03-28] MEDS: Heparin Injection (Vial) 5,000 UNIT/ML VIAL 5000 UNIT SC ×2 (09:49→21:18)
--- NOTE | 2018-03-28 11:48 | PCM.PROGNOTE ---
<Bimal Bermudez - Last Filed: 03/28/18 11:48> Patient Problems: Active and Suspected Problems (Last Updated 03/16/18 @ 16:19 by Sandrita Jara) Chest pain (Acute) Hypothyroidism (Acute) COPD (chronic obstructive pulmonary disease) (Acute) Subjective: Overall pt feels significant malaise, fatigue, and that her UTI symptoms (cough, sore throat, congestion, sinus drainage, ear fullness, dec. hearing) have not improved. Chest heaviness resolved now. Fevers continue. Shakes continue. Non productive cough. No smoking hx, does not smoke, occupational exposure includes hay dust. No hx COPD/Emphysema, only asthma. CT shows emphysema and nodules. 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 - Physical Exam General: Alert, Oriented x3, Cooperative HEENT: Atraumatic, PERRLA, EOMI, Normocephalic Neck: Supple, No JVD, Negative Carotid Bruits Lungs: Diminished, Rhonchi Cardiovascular: Regular rate, No murmurs Abdomen: Bowel Sounds Present, Soft, Non Tender Extremities: No edema, Capillary Refill Less than 3 Seconds Skin: No rashes, No breakdown Musculoskeletal: No Tenderness to Palpation of Joints or Extremities Neurological: Cranial nerves II-XII grossly intact Psych/Mental Status: Depressed, Alert and oriented to time, place, person, mood and affect Vital Signs Temp Pulse Resp BP Pulse Ox 100.1 F H 92 16 166/67 H 95 03/28/18 06:14 03/28/18 07:57 03/28/18 07:59 03/28/18 06:14 03/28/18 07:03 Oxygen Delivery Method Room Air Intake and Output for Last 24 Hours 03/26/18 03/27/18 03/28/18 23:59 23:59 23:59 Intake Total 100 / 3489 436 / 436 Output Total 100 / 570 400 / 400 Balance 0 / 2919 36 / 36 Laboratory Tests Past 24 Hrs 03/28/18 03/28/18 03/28/18 05:08 05:08 05:08 WBC 12.3 H RBC 4.34 Hgb 12.2 Hct 36.6 L MCV 84.3 MCH 28.1 MCHC 33.3 RDW 13.5 RDW Differential 40.9 Plt Count 241 MPV 10.2 Immature Gran % (Auto) 0.200 Neut % (Auto) 75.2 H Lymph % (Auto) 15.8 L [place] % (Auto) 8.7 Eos % (Auto) 0.0 Baso % (Auto) 0.1 Absolute Neuts (auto) 9.2 H Absolute Lymphs (auto) 1.94 Total Counted Not Reportable PT 15.6 H INR 1.2 APTT 32.0 Sodium 138 Potassium 4.0 Chloride 105 Carbon Dioxide 22.0 Anion Gap 11 BUN 20 H Creatinine 0.60 Estim Creat Clear Calc 40.35 Est GFR (MDRD) Af Amer 124 Est GFR (MDRD) Non-Af 102 BUN/Creatinine Ratio 33.1 H Glucose 115 H Calcium 8.3 L Medical Necessity - Tobacco Use Smoking Status: Never smoker Tobacco Use: Non-smoker Assessment/Plan All Active Problems (Last Updated 03/16/18 @ 16:19 by Sandrita Jara) Chest pain (Acute) Hypothyroidism (Acute) COPD (chronic obstructive pulmonary disease) (Acute) Bronchitis (Acute) 1. Chest heaviness - resolved. Stress test deferred until pt clinically improves, atypical in nature and more likely 2/2 her URI/bronchitis anyway. Trop neg. EKG neg. 2. Acute sepsis 2/2 acute bronchitis - levaquin. WBC worse. Fevers continue. Recently with pna. CXR without pna. CT shows infiltrates/atelectasis/edema. Failed outpatent Augmentin x 10 days. Flu screen neg. Urine antigens neg. Continue IS, add PEP therapy. Add mucinex. 3. Asthma - again, has emphysema per CT. continue pulmicort, duonebs. 4. Pulmonary nodules - one is spiculated, other irregular, with lymphadenopathy - pulmonology consulted. No smoking hx. 5. Hypothyroidism - synthroid 6. HLD - statin 7. Cerumen impaction - debrox to bl ears x1. DVT ppx: heparin DC planning: pt without significant improvement. Add ptot. This patient was seen by Bimal Bermudez PA-C under the supervision of Doctor Yesenia. <Alber Patterson - Last Filed: 03/28/18 15:28> - Physical Exam Vital Signs Temp Pulse Resp BP Pulse Ox 99.8 F H 58 L 18 154/61 H 95 03/28/18 11:53 03/28/18 11:53 03/28/18 11:53 03/28/18 11:53 03/28/18 11:53 Oxygen Delivery Method Room Air Intake and Output for Last 24 Hours 03/26/18 03/27/18 03/28/18 23:59 23:59 23:59 Intake Total 100 / 3489 1274 / 1274 Output Total 100 / 570 400 / 400 Balance 0 / 2919 874 / 874 Laboratory Tests Past 24 Hrs 03/28/18 03/28/18 03/28/18 05:08 05:08 05:08 WBC 12.3 H RBC 4.34 Hgb 12.2 Hct 36.6 L MCV 84.3 MCH 28.1 MCHC 33.3 RDW 13.5 RDW Differential 40.9 Plt Count 241 MPV 10.2 Immature Gran % (Auto) 0.200 Neut % (Auto) 75.2 H Lymph % (Auto) 15.8 L [place] % (Auto) 8.7 Eos % (Auto) 0.0 Baso % (Auto) 0.1 Absolute Neuts (auto) 9.2 H Absolute Lymphs (auto) 1.94 Total Counted Not Reportable PT 15.6 H INR 1.2 APTT 32.0 Sodium 138 Potassium 4.0 Chloride 105 Carbon Dioxide 22.0 Anion Gap 11 BUN 20 H Creatinine 0.60 Estim Creat Clear Calc 40.35 Est GFR (MDRD) Af Amer 124 Est GFR (MDRD) Non-Af 102 BUN/Creatinine Ratio 33.1 H Glucose 115 H Calcium 8.3 L Assessment/Plan This patient was seen in conjunction with Bimal Bermudez PA-C. I have independently interviewed and examined the patient and reviewed pertinent historical, laboratory, and other data. Please refer to Bimal Bermudez PA-C note for details of this patient's presentation, findings, and recommendations. I have reviewed Bimal Bermudez PA-C note and concur with documented findings. In brief, patient is a 77-year-old female admitted with progressive shortness of breath and upper respiratory tract symptoms. Physical Examination: GENERAL: cooperative HEENT: Clear conjunctiva, NECK; supple, normal thyroid, CHEST: Diminished to auscultation bilaterally with rhonchi HEART: Regular S1 S2, no audible murmurs ABDOMEN: soft, non-tender, normoactive bowel sounds, SKIN: No Rash Assessment: 1. Sepsis secondary to community-acquired pneumonia with possible atypical organisms 2. Spiculated pulmonary nodules, 3. Mild intermittent asthma 4. Hypothyroidism 5. Dyslipidemia 6. COPD Recommendations: 1. I have discussed the results of my overview and impressions with the patient 2. Options for management were reviewed Clinical Impression(s) from Imaging Studies Chest X-Ray 03/26/18 12:37 IMPRESSION: 1. No acute cardiopulmonary pathology. 2. COPD. 3. No interval change when compared to 03/16/2018. Electronically Signed: Jackson Stapleton MD at 13:08 EDT , Service support , Chest CT 03/28/18 09:44 IMPRESSION: Emphysematous changes. Small bilateral pleural effusions with bibasilar atelectasis and/or infiltrates. Scattered nodular densities in both lower lobes as described. Correlation with the PET scan is recommended. Electronically Signed: Constantine Marquez MD at 11:06 EDT Tel [phone], Service support , Code Visit Inpatient E&M: [id number] Subs Hosp L3
--- NOTE | 2018-03-28 11:55 | PN_ITS ---
<Bimal Bermudez - Last Filed: 03/28/18 11:48> Patient Problems: Active and Suspected Problems (Last Updated 03/16/18 @ 16:19 by Sandrita Jara) Chest pain (Acute) Hypothyroidism (Acute) COPD (chronic obstructive pulmonary disease) (Acute) Subjective: Overall pt feels significant malaise, fatigue, and that her UTI symptoms (cough , sore throat, congestion, sinus drainage, ear fullness, dec. hearing) have not improved. Chest heaviness resolved now. Fevers continue. Shakes continue. Non productive cough. No smoking hx, does not smoke, occupational exposure includes hay dust. No hx COPD/Emphysema, only asthma. CT shows emphysema and nodules. 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 - Physical Exam General: Alert, Oriented x3, Cooperative HEENT: Atraumatic, PERRLA, EOMI, Normocephalic Neck: Supple, No JVD, Negative Carotid Bruits Lungs: Diminished, Rhonchi Cardiovascular: Regular rate, No murmurs Abdomen: Bowel Sounds Present, Soft, Non Tender Extremities: No edema, Capillary Refill Less than 3 Seconds Skin: No rashes, No breakdown Musculoskeletal: No Tenderness to Palpation of Joints or Extremities Neurological: Cranial nerves II-XII grossly intact Psych/Mental Status: Depressed, Alert and oriented to time, place, person, mood and affect Vital Signs Temp Pulse Resp BP Pulse Ox 100.1 F H 92 16 166/67 H 95 03/28/18 06:14 03/28/18 07:57 03/28/18 07:59 03/28/18 06:14 03/28/18 07:03 Oxygen Delivery Method Room Air Intake and Output for Last 24 Hours 03/26/18 03/27/18 03/28/18 23:59 23:59 23:59 Intake Total 100 / 3489 436 / 436 Output Total 100 / 570 400 / 400 Balance 0 / 2919 36 / 36 Laboratory Tests Past 24 Hrs 03/28/18 03/28/18 03/28/18 05:08 05:08 05:08 WBC 12.3 H RBC 4.34 Hgb 12.2 Hct 36.6 L MCV 84.3 MCH 28.1 MCHC 33.3 RDW 13.5 RDW Differential 40.9 Plt Count 241 MPV 10.2 Immature Gran % (Auto) 0.200 Neut % (Auto) 75.2 H Lymph % (Auto) 15.8 L [place] % (Auto) 8.7 Eos % (Auto) 0.0 Baso % (Auto) 0.1 Absolute Neuts (auto) 9.2 H Absolute Lymphs (auto) 1.94 Total Counted Not Reportable PT 15.6 H INR 1.2 APTT 32.0 Sodium 138 Potassium 4.0 Chloride 105 Carbon Dioxide 22.0 Anion Gap 11 BUN 20 H Creatinine 0.60 Estim Creat Clear Calc 40.35 Est GFR (MDRD) Af Amer 124 Est GFR (MDRD) Non-Af 102 BUN/Creatinine Ratio 33.1 H Glucose 115 H Calcium 8.3 L Medical Necessity - Tobacco Use Smoking Status: Never smoker Tobacco Use: Non-smoker Assessment/Plan All Active Problems (Last Updated 03/16/18 @ 16:19 by Sandrita Jara) Chest pain (Acute) Hypothyroidism (Acute) COPD (chronic obstructive pulmonary disease) (Acute) Bronchitis (Acute) 1. Chest heaviness - resolved. Stress test deferred until pt clinically improves , atypical in nature and more likely 2/2 her URI/bronchitis anyway. Trop neg. EKG neg. 2. Acute sepsis 2/2 acute bronchitis - levaquin. WBC worse. Fevers continue. Recently with pna. CXR without pna. CT shows infiltrates/atelectasis/edema. Failed outpatent Augmentin x 10 days. Flu screen neg. Urine antigens neg. Continue IS, add PEP therapy. Add mucinex. 3. Asthma - again, has emphysema per CT. continue pulmicort, duonebs. 4. Pulmonary nodules - one is spiculated, other irregular, with lymphadenopathy - pulmonology consulted. No smoking hx. 5. Hypothyroidism - synthroid 6. HLD - statin 7. Cerumen impaction - debrox to bl ears x1. DVT ppx: heparin DC planning: pt without significant improvement. Add ptot. This patient was seen by Bimal eBrmudez PA-C under the supervision of Doctor Yesenia. <Alber Patterson - Last Filed: 03/28/18 15:28> - Physical Exam Vital Signs Temp Pulse Resp BP Pulse Ox 99.8 F H 58 L 18 154/61 H 95 03/28/18 11:53 03/28/18 11:53 03/28/18 11:53 03/28/18 11:53 03/28/18 11:53 Oxygen Delivery Method Room Air Intake and Output for Last 24 Hours 03/26/18 03/27/18 03/28/18 23:59 23:59 23:59 Intake Total 100 / 3489 1274 / 1274 Output Total 100 / 570 400 / 400 Balance 0 / 2919 874 / 874 Laboratory Tests Past 24 Hrs 03/28/18 03/28/18 03/28/18 05:08 05:08 05:08 WBC 12.3 H RBC 4.34 Hgb 12.2 Hct 36.6 L MCV 84.3 MCH 28.1 MCHC 33.3 RDW 13.5 RDW Differential 40.9 Plt Count 241 MPV 10.2 Immature Gran % (Auto) 0.200 Neut % (Auto) 75.2 H Lymph % (Auto) 15.8 L [place] % (Auto) 8.7 Eos % (Auto) 0.0 Baso % (Auto) 0.1 Absolute Neuts (auto) 9.2 H Absolute Lymphs (auto) 1.94 Total Counted Not Reportable PT 15.6 H INR 1.2 APTT 32.0 Sodium 138 Potassium 4.0 Chloride 105 Carbon Dioxide 22.0 Anion Gap 11 BUN 20 H Creatinine 0.60 Estim Creat Clear Calc 40.35 Est GFR (MDRD) Af Amer 124 Est GFR (MDRD) Non-Af 102 BUN/Creatinine Ratio 33.1 H Glucose 115 H Calcium 8.3 L Assessment/Plan This patient was seen in conjunction with Bimal Bermudez PA-C. I have independently interviewed and examined the patient and reviewed pertinent historical, laboratory, and other data. Please refer to Bimal Bermudez PA-C note for details of this patient's presentation, findings, and recommendations. I have reviewed Bimal Bermudez PA-C note and concur with documented findings. In brief, patient is a 77-year-old female admitted with progressive shortness of breath and upper respiratory tract symptoms. Physical Examination: GENERAL: cooperative HEENT: Clear conjunctiva, NECK; supple, normal thyroid, CHEST: Diminished to auscultation bilaterally with rhonchi HEART: Regular S1 S2, no audible murmurs ABDOMEN: soft, non-tender, normoactive bowel sounds, SKIN: No Rash Assessment: 1. Sepsis secondary to community-acquired pneumonia with possible atypical organisms 2. Spiculated pulmonary nodules, 3. Mild intermittent asthma 4. Hypothyroidism 5. Dyslipidemia 6. COPD Recommendations: 1. I have discussed the results of my overview and impressions with the patient 2. Options for management were reviewed Clinical Impression(s) from Imaging Studies Chest X-Ray 03/26/18 12:37 IMPRESSION: 1. No acute cardiopulmonary pathology. 2. COPD. 3. No interval change when compared to 03/16/2018. Electronically Signed: Jackson Stapleton MD at 13:08 EDT , Service support , Chest CT 03/28/18 09:44 IMPRESSION: Emphysematous changes. Small bilateral pleural effusions with bibasilar atelectasis and/or infiltrates. Scattered nodular densities in both lower lobes as described. Correlation with the PET scan is recommended. Electronically Signed: Constantine Marquez MD at 11:06 EDT Tel [phone], Service support , Code Visit Inpatient E&M: [id number] Subs Hosp L3
--- NOTE | 2018-03-28 13:46 | CASEMGMT ---
RN CM assessment completed. See Link. DC PLAN: home on dc, no needs identified. Pt prefers to have prescriptions sent to [facility] pharmacy. Entered in chart. No needs identified. pt states she was independent prior to admission, denies dc needs. Darrell HODGEN RN ACM
[2018-03-28] MEDS: Carbamide Peroxide 15 ML Bottle 5 DRP OTIC (13:52)
--- NOTE | 2018-03-28 15:26 | PCM.CONS.GEN ---
Problem List (1) Chest pain Status: Acute Qualifiers: Chest pain type: unspecified Qualified Code(s): R07.9 - Chest pain, unspecified (2) Hypothyroidism Status: Chronic Qualifiers: Hypothyroidism type: acquired Qualified Code(s): E03.9 - Hypothyroidism, unspecified (3) Bronchitis Status: Acute Reason for Consult Date of Consultation: 03/28/18 Reason for Consultation: Abnormal CT History of Present Illness: The patient is a 77 year old F, with past medical history listed below, who presented to [facility] on 03/26/2018 with 2 days of progressive chest pain. This was described as intermittent heaviness and associated with mild shortness of breath. Patient has a nonproductive cough, but denies any nausea or vomiting. Patient is never been a smoker, [place]. Patient denied any fever or chills at home, but reports that she was seen at the urgent care center approximately 10 days ago and placed on amoxicillin for similar type presentation. Patient was admitted to the floor and reports little subjective change since presentation. Patient has had episodes of fever and tachycardia. Patient is saturating well on room air. Patient reports some improvement in chest pain, but still gets shortness of breath with any exertion. Patient's daughter has noted the onset of an intention tremor, which has not been seen previously. As part of the workup, patient is CT scan of the chest. This was concerning for possible lung nodules, so a pulmonary consultation was obtained. Patient's daughter was in the room at the time of my evaluation. Patient reportedly has had a cough for several years. Patient reports that she has not had good lungs since being a child. Patient denies any acute pneumonia leading to hospitalization, but reports that she has a cough productive of clear to white sputum on a daily basis. Patient denies any significant wheezing. Patient is supposed to be using inhalers, but states that she forgets them most days. Patient reports very little subjective change after albuterol. Patient has never had pulmonary function tests are seen a engineer assistant previously. Patient reports some mild weight loss recently. 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 She denies ever smoking. Patient denies any drug or alcohol use. Patient has had episodes of fibroids with benign tumors removed from her skin, thyroid and stomach previously. Patient is very active at baseline works 3 jobs. Patient reports some difficulty recently, but does not report breathlessness on daily basis. Patient does state that her cough can cause issues. Patient denies any hemoptysis or epistaxis. Patient does not believe that she gets colds more than normal people. Review of systems otherwise negative ?10 systems. Past Medical History Past Medical History (Chronic Problems): Chronic Problems (Last Updated 03/16/18 @ 16:19 by Sandrita Jara) Hypothyroidism (Chronic) Medical History: Medical History (Last Updated 03/16/18 @ 16:19 by Sandrita Jara) Asthma J45.909 Allergies No Known Allergies Allergy (Verified 03/16/18 16:17) Home Medications: Ambulatory Orders Medication Instructions Recorded Aspirin 81 mg PO QHS 07/02/17 Cholecalciferol (Vitamin D3) 4,000 unit PO LUNCH 07/02/17 [Vitamin D3] Levothyroxine [Synthroid] 50 mcg PO DAILY 07/02/17 Simvastatin [Zocor] 1 tab PO QHS 07/02/17 budesonide-formoterol HFA 160 1 puff INHALATION BID 03/16/18 mcg-4.5 mcg/actuation aerosol inhaler Amoxicillin [Amoxil] 1,000 mg PO Q12H 03/26/18 Surgical History: hysterectomy Psychiatric History: No pertinent psych hx RN HEMODIALYSIS CHARGE History: No pertinent RN HEMODIALYSIS CHARGE history Lives: Spouse/ Significant Other, With Family Smoking Status: Never smoker Tobacco Use: Non-smoker Alcohol: None Drugs: None - *Family History Maternal History Items: No pertinent history Paternal History Items: No pertinent history Review of Systems Comment: The HPI, otherwise negative ?10 systems Patient Problems: Active and Suspected Problems (Last Updated 03/16/18 @ 16:19 by Sandrita Jara) Chest pain (Acute) COPD (chronic obstructive pulmonary disease) (Acute) Objective: CT scan of the chest was personally reviewed. I do not appreciate significant emphysematous changes. Patient does have bibasilar atelectasis with minimal pleural effusions. There are scattered nodular densities noted throughout both lower lobes. Patient also had thickening of the bronchi with borderline bronchiectasis noted throughout both lungs. No hiatal hernia was appreciated - Physical Exam General: Alert, Oriented x3, Cooperative, No apparent distress, - - Thin build. Speaking in full sentences. HEENT: Atraumatic, PERRLA, EOMI, Normocephalic, - - No scleral icterus or injection noted. Oral: Moist Mucosa, No Gingival or Mucosal Lesions/ Ulcerations Neck: Supple, No JVD, No Nodes, Trachea Midline Lungs: No rhonchi, No rales, Diminished, Wheezes - At end exhalation, - - Symmetric expansion. No dullness to percussion. Cardiovascular: Regular rate, Regular Rhythm, Normal S1, Normal S2, No murmurs, No rub noted, No Gallop Abdomen: Bowel Sounds Present, Soft, Non Tender, Non-Distended Extremities: No clubbing, No cyanosis, No edema, Capillary Refill Less than 3 Seconds Skin: No rashes, No breakdown Musculoskeletal: No Tenderness to Palpation of Joints or Extremities, - - Thin build Lymphatic: No Cervical, Supraclavicular, or Inguinal Adenopathy Neurological: Cranial nerves II-XII grossly intact, Neuro grossly intact, Motor Exam 5/5 strength throughout Psych/Mental Status: Alert and oriented to time, place, person, mood and affect Vital Signs Temp Pulse Resp BP Pulse Ox 37.7 C H 64 18 154/61 H 95 03/28/18 11:53 03/28/18 15:14 03/28/18 11:53 03/28/18 11:53 03/28/18 11:53 Oxygen Delivery Method Room Air Intake and Output for Last 24 Hours 03/26/18 03/27/18 03/28/18 23:59 23:59 23:59 Intake Total 100 / 3489 1274 / 1274 Output Total 100 / 570 400 / 400 Balance 0 / 2919 874 / 874 Laboratory Tests Past 24 Hrs 03/28/18 03/28/18 03/28/18 05:08 05:08 05:08 WBC 12.3 H RBC 4.34 Hgb 12.2 Hct 36.6 L MCV 84.3 MCH 28.1 MCHC 33.3 RDW 13.5 RDW Differential 40.9 Plt Count 241 MPV 10.2 Immature Gran % (Auto) 0.200 Neut % (Auto) 75.2 H Lymph % (Auto) 15.8 L [place] % (Auto) 8.7 Eos % (Auto) 0.0 Baso % (Auto) 0.1 Absolute Neuts (auto) 9.2 H Absolute Lymphs (auto) 1.94 Total Counted Not Reportable PT 15.6 H INR 1.2 APTT 32.0 Sodium 138 Potassium 4.0 Chloride 105 Carbon Dioxide 22.0 Anion Gap 11 BUN 20 H Creatinine 0.60 Estim Creat Clear Calc 40.35 Est GFR (MDRD) Af Amer 124 Est GFR (MDRD) Non-Af 102 BUN/Creatinine Ratio 33.1 H Glucose 115 H Calcium 8.3 L Clinical Impression(s) from Imaging Studies Chest X-Ray 03/26/18 12:37 IMPRESSION: 1. No acute cardiopulmonary pathology. 2. COPD. 3. No interval change when compared to 03/16/2018. Electronically Signed: Jackson Stapleton MD at 13:08 EDT , Service support , Chest CT 03/28/18 09:44 IMPRESSION: Emphysematous changes. Small bilateral pleural effusions with bibasilar atelectasis and/or infiltrates. Scattered nodular densities in both lower lobes as described. Correlation with the PET scan is recommended. Electronically Signed: Constantine Marquez MD at 11:06 EDT Tel [phone], Service support , Assessment/Plan All Active Problems (Last Updated 03/16/18 @ 16:19 by Sandrita Jara) Chest pain (Acute) COPD (chronic obstructive pulmonary disease) (Acute) Bronchitis (Acute) RECOMMENDATIONS: 1. Transition from Pulmicort to prednisone therapy 2. Continue bronchodilators 3. Add Acapella and sputum culture 4. Continue Levaquin therapy 5. Repeat CT scan as an outpatient IMPRESSIONS: 1. Abnormal CT scan Patient with dilated airways with bronchial thickening consistent with bronchiectasis. Patient has had fevers while admitted to the hospital. I did not appreciate the emphysematous changes. Clinical suspicion for bronchiectasis secondary to uncontrolled asthma. Patient can have an alpha-1 antitrypsin checked as an outpatient, along with complete PFTs. Will transition from Pulmicort therapy to prednisone. Patient will be on a 5 day burst. Continue with bronchodilators. Will add an Acapella and sputum culture. Reasonable to continue Levaquin therapy for now. Clinical suspicion for round atelectasis secondary to mucus plugging, but a repeat CT scan can be completed as an outpatient following resolution of symptoms to rule out malignancy. 2. Sepsis/hypothyroidism/dyslipidemia Complicates care, management, recovery and prognosis. Patient is on appropriate antibiotics. Blood cultures are currently pending. Code Visit Inpatient E&M: 91397 Init Hosp L2
--- NOTE | 2018-03-28 15:33 | CON.PCM_ITS ---
Problem List (1) Chest pain Status: Acute Qualifiers: Chest pain type: unspecified Qualified Code(s): R07.9 - Chest pain, unspecified (2) Hypothyroidism Status: Chronic Qualifiers: Hypothyroidism type: acquired Qualified Code(s): E03.9 - Hypothyroidism, unspecified (3) Bronchitis Status: Acute Reason for Consult Date of Consultation: 03/28/18 Reason for Consultation: Abnormal CT History of Present Illness: The patient is a 77 year old F, with past medical history listed below, who presented to [facility] on 03/26/2018 with 2 days of progressive chest pain. This was described as intermittent heaviness and associated with mild shortness of breath. Patient has a nonproductive cough, but denies any nausea or vomiting. Patient is never been a smoker, but [place] of her [place]. Patient denied any fever or chills at home, but reports that she was seen at the urgent care center approximately 10 days ago and placed on amoxicillin for similar type presentation. Patient was admitted to the floor and reports little subjective change since presentation. Patient has had episodes of fever and tachycardia. Patient is saturating well on room air. Patient reports some improvement in chest pain, but still gets shortness of breath with any exertion. Patient's daughter has noted the onset of an intention tremor, which has not been seen previously. As part of the workup, patient is CT scan of the chest. This was concerning for possible lung nodules, so a pulmonary consultation was obtained. Patient's daughter was in the room at the time of my evaluation. Patient reportedly has had a cough for several years. Patient reports that she has not had good lungs since being a child. Patient denies any acute pneumonia leading to hospitalization, but reports that she has a cough productive of clear to white sputum on a daily basis. Patient denies any significant wheezing. Patient is supposed to be using inhalers, but states that she forgets them most days. Patient reports very little subjective change after albuterol. Patient has never had pulmonary function tests are seen a customs compliance analyst previously. Patient reports some mild weight loss recently. 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 She denies ever smoking. Patient denies any drug or alcohol use. Patient has had episodes of fibroids with benign tumors removed from her skin, thyroid and stomach previously. Patient is very active at baseline works 3 jobs. Patient reports some difficulty recently, but does not report breathlessness on daily basis. P emma does state that her cough can cause issues. Patient denies any hemoptysis or epistaxis. Patient does not believe that she gets colds more than normal people. Review of systems otherwise negative ?10 systems. Past Medical History Past Medical History (Chronic Problems): Chronic Problems (Last Updated 03/16/18 @ 16:19 by Sandrita Jara) Hypothyroidism (Chronic) Medical History: Medical History (Last Updated 03/16/18 @ 16:19 by Sandrita Jara) Asthma J45.909 Allergies No Known Allergies Allergy (Verified 03/16/18 16:17) Home Medications: Ambulatory Orders Medication Instructions Recorded Aspirin 81 mg PO QHS 07/02/17 Cholecalciferol (Vitamin D3) 4,000 unit PO LUNCH 07/02/17 [Vitamin D3] Levothyroxine [Synthroid] 50 mcg PO DAILY 07/02/17 Simvastatin [Zocor] 1 tab PO QHS 07/02/17 budesonide-formoterol HFA 160 1 puff INHALATION BID 03/16/18 mcg-4.5 mcg/actuation aerosol inhaler Amoxicillin [Amoxil] 1,000 mg PO Q12H 03/26/18 Surgical History: hysterectomy Psychiatric History: No pertinent psych hx [employer] 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 I do not appreciate significant emphysematous changes. Patient does have bibasilar atelectasis with minimal pleural effusions. There are scattered nodular densities noted throughout both lower lobes. Patient also had thickening of the bronchi with borderline bronchiectasis noted throughout both lungs. No hiatal hernia was appreciated - Physical Exam General: Alert, Oriented x3, Cooperative, No apparent distress, - - Thin build. Speaking in full sentences. HEENT: Atraumatic, PERRLA, EOMI, Normocephalic, - - No scleral icterus or injection noted. Oral: Moist Mucosa, No Gingival or Mucosal Lesions/ Ulcerations Neck: Supple, No JVD, No Nodes, Trachea Midline Lungs: No rhonchi, No rales, Diminished, Wheezes - At end exhalation, - - Symmetric expansion. No dullness to percussion. Cardiovascular: Regular rate, Regular Rhythm, Normal S1, Normal S2, No murmurs, No rub noted, No Gallop Abdomen: Bowel Sounds Present, Soft, Non Tender, Non-Distended Extremities: No clubbing, No cyanosis, No edema, Capillary Refill Less than 3 Seconds Skin: No rashes, No breakdown Musculoskeletal: No Tenderness to Palpation of Joints or Extremities, - - Thin build Lymphatic: No Cervical, Supraclavicular, or Inguinal Adenopathy Neurological: Cranial nerves II-XII grossly intact, Neuro grossly intact, Motor Exam 5/5 strength throughout Psych/Mental Status: Alert and oriented to time, place, person, mood and affect Vital Signs Temp Pulse Resp BP Pulse Ox 37.7 C H 64 18 154/61 H 95 03/28/18 11:53 03/28/18 15:14 03/28/18 11:53 03/28/18 11:53 03/28/18 11:53 Oxygen Delivery Method Room Air Intake and Output for Last 24 Hours 03/26/18 03/27/18 03/28/18 23:59 23:59 23:59 Intake Total 100 / 3489 1274 / 1274 Output Total 100 / 570 400 / 400 Balance 0 / 2919 874 / 874 Laboratory Tests Past 24 Hrs 03/28/18 03/28/18 03/28/18 05:08 05:08 05:08 WBC 12.3 H RBC 4.34 Hgb 12.2 Hct 36.6 L MCV 84.3 MCH 28.1 MCHC 33.3 RDW 13.5 RDW Differential 40.9 Plt Count 241 MPV 10.2 Immature Gran % (Auto) 0.200 Neut % (Auto) 75.2 H Lymph % (Auto) 15.8 L [place] % (Auto) 8.7 Eos % (Auto) 0.0 Baso % (Auto) 0.1 Absolute Neuts (auto) 9.2 H Absolute Lymphs (auto) 1.94 Total Counted Not Reportable PT 15.6 H INR 1.2 APTT 32.0 Sodium 138 Potassium 4.0 Chloride 105 Carbon Dioxide 22.0 Anion Gap 11 BUN 20 H Creatinine 0.60 Estim Creat Clear Calc 40.35 Est GFR (MDRD) Af Amer 124 Est GFR (MDRD) Non-Af 102 BUN/Creatinine Ratio 33.1 H Glucose 115 H Calcium 8.3 L Clinical Impression(s) from Imaging Studies Chest X-Ray 03/26/18 12:37 IMPRESSION: 1. No acute cardiopulmonary pathology. 2. COPD. 3. No interval change when compared to 03/16/2018. Electronically Signed: Jackson Stapleton MD at 13:08 EDT , Service support , Chest CT 03/28/18 09:44 IMPRESSION: Emphysematous changes. Small bilateral pleural effusions with bibasilar atelectasis and/or infiltrates. Scattered nodular densities in both lower lobes as described. Correlation with the PET scan is recommended. Electronically Signed: Constantine Marquez MD at 11:06 EDT Tel [phone], Service support , Assessment/Plan All Active Problems (Last Updated 03/16/18 @ 16:19 by Sandrita Jara) Chest pain (Acute) COPD (chronic obstructive pulmonary disease) (Acute) Bronchitis (Acute) RECOMMENDATIONS: 1. Transition from Pulmicort to prednisone therapy 2. Continue bronchodilators 3. Add Acapella and sputum culture 4. Continue Levaquin therapy 5. Repeat CT scan as an outpatient IMPRESSIONS: 1. Abnormal CT scan Patient with dilated airways with bronchial thickening consistent with bronchiectasis. Patient has had fevers while admitted to the hospital. I did not appreciate the emphysematous changes. Clinical suspicion for bronchiectasis secondary to uncontrolled asthma. Patient can have an alpha-1 antitrypsin checked as an outpatient, along with complete PFTs. Will transition from Pulmicort therapy to prednisone. Patient will be on a 5 day burst. Continue with bronchodilators. Will add an Acapella and sputum culture. Reasonable to continue Levaquin therapy for now. Clinical suspicion for round atelectasis secondary to mucus plugging, but a repeat CT scan can be completed as an outpatient following resolution of symptoms to rule out malignancy. 2. Sepsis/hypothyroidism/dyslipidemia Complicates care, management, recovery and prognosis. Patient is on appropriate antibiotics. Blood cultures are currently pending. Code Visit Inpatient E&M: 60646 Init Hosp L2
[2018-03-28] MEDS: Tamsulosin HCl 0.4 MG Capsule PO (17:08)
[2018-03-28] MEDS: predniSONE 20 MG Tablet 40 MG PO (17:08)
[2018-03-28] MEDS: Atorvastatin Calcium 10 MG Tablet 5 MG PO (21:17)
[2018-03-28] MEDS: guaiFENesin 1,200 MG Tablet 1200 MG PO (21:18)
[2018-03-28] MEDS: BENZOCAINE/MENTHOL 1 LOZENGE 2 LOZENGE MUCOUS MEM (23:30)
[2018-03-29] VITALS (12 sets, daily range): BP systolic 113–166; BP diastolic 57–84; PULSE 58–90; RESP 16–18; TEMP 36.3–37; O2SAT 92–96
[2018-03-29] MEDS: Acetaminophen 500 MG Tablet 1000 MG PO ×3 (05:44→21:12)
[2018-03-29] MEDS: 0.9% Normal Saline 1,000 ML 100 ML IV ×2 (05:44→17:08)
[2018-03-29] MEDS: Levothyroxine 50 MCG Tablet PO (05:44)
[2018-03-29 06:30] LABS: Absolute Lymphocyte Count 0.98 X10^3/ul (0.83-4.51); Absolute Neutrophil Count 7.9 X10^3/uL (2.0-7.7); Hematocrit 37.7 % (37-47); Hemoglobin 12.7 g/dl (12.0-15.0); Lymphocyte # 0.98 X10^3/ul (4.0); Lymphocyte % 10.6 % (19-41); Mean Corp Hgb Conc 33.7 g/gl (32-36); Mean Corpuscular Volume 83.2 fL (81-99); Mean Platelet Vol. 10.3 fl (6.2-12.0); Monocyte# 0.35 X10^3/uL; Monocyte% 3.8 % (0-10); Neutrophil % 85.4 % (47-70); Platelet Count 249 K/mm3 (150-450); RBC Distribution Width CV 13.6 % (11.6-14.6); RBC Distribution Width SD 40.8 fl (35.1-43.9); Red Blood Count 4.53 M/mm3 (4.2-5.4); White Blood Count 9.3 K/mm3 (4.4-11.0)
[2018-03-29 06:40] LABS: POSITIVE COUNT NO; POSITIVE DIFFERENTIAL NO; POSITIVE MORPHOLOGY NO
[2018-03-29] MEDS: Ipratropium/Albuterol Sulfate 3 ML AMPUL.NEB INHALATION ×3 (07:12→18:27)
--- NOTE | 2018-03-29 07:50 | PCM.PROGNOTE ---
Patient Problems: Active and Suspected Problems (Last Updated 03/16/18 @ 16:19 by Sandrita Jara) Chest pain (Acute) COPD (chronic obstructive pulmonary disease) (Acute) Subjective: Patient did okay overnight. Patient reports subjective improvement in breathing and cough compared to yesterday. Patient has noted some queasiness of her stomach, but no emesis. Patient feels her strength is slightly improved compared to previous. - Physical Exam General: Alert, Oriented x3, Cooperative, No apparent distress, - - Speaking in full sentences. Thin build. HEENT: Atraumatic, PERRLA, EOMI, Normocephalic, - - No scleral icterus or injection noted. Oral: Moist Mucosa, No Gingival or Mucosal Lesions/ Ulcerations Neck: Supple, No JVD, No Nodes, Trachea Midline Lungs: No rhonchi, No rales, Diminished - Improved air exchange today., Wheezes - Sporadic at end exhalation Cardiovascular: Regular rate, Regular Rhythm, Normal S1, Normal S2, No murmurs, No rub noted, No Gallop Abdomen: Bowel Sounds Present, Soft, Non Tender, Non-Distended Extremities: No clubbing, No cyanosis, No edema, Capillary Refill Less than 3 Seconds Skin: No rashes, No breakdown Musculoskeletal: No Tenderness to Palpation of Joints or Extremities Lymphatic: No Cervical, Supraclavicular, or Inguinal Adenopathy Neurological: Cranial nerves II-XII grossly intact, Neuro grossly intact, Motor Exam 5/5 strength throughout Psych/Mental Status: Alert and oriented to time, place, person, mood and affect Vital Signs Temp Pulse Resp BP Pulse Ox 36.3 C L 58 L 16 166/72 H 96 03/29/18 05:29 03/29/18 06:59 03/29/18 05:29 03/29/18 05:29 03/29/18 05:29 Oxygen Flow Rate (L/min) 2 Oxygen Delivery Method Room Air Weight: 53.4 kg Body Mass Index (BMI) 18.4 Intake and Output for Last 24 Hours 03/27/18 03/28/18 03/29/18 23:59 23:59 23:59 Intake Total 3489 / 3489 2587 / 2587 577 / 577 Output Total 570 / 570 1500 / 1500 400 / 400 Balance 2919 / 2919 1087 / 1087 177 / 177 Microbiology Past 72 Hours 03/27/18 23:00 Influenza Types A,B Direct FA (DEANDRE) - Final Mucosa - Nasopharyngeal 03/27/18 12:58 Legionella Antigen - Final Urine Catheter - Catheter 03/27/18 12:58 Streptococcus pneumoniae Antigen (M - Final Urine Catheter - Catheter Laboratory Tests Past 24 Hrs 03/29/18 05:45 WBC 9.3 RBC 4.53 Hgb 12.7 Hct 37.7 MCV 83.2 MCH 28.0 MCHC 33.7 RDW 13.6 RDW Differential 40.8 Plt Count 249 MPV 10.3 Immature Gran % (Auto) 0.200 Neut % (Auto) 85.4 H Lymph % (Auto) 10.6 L [place] % (Auto) 3.8 Eos % (Auto) 0.0 Baso % (Auto) 0.0 Absolute Neuts (auto) 7.9 H Absolute Lymphs (auto) 0.98 Total Counted Not Reportable Clinical Impression(s) from Imaging Studies Chest CT 03/28/18 09:44 IMPRESSION: Emphysematous changes. Small bilateral pleural effusions with bibasilar atelectasis and/or infiltrates. Scattered nodular densities in both lower lobes as described. Correlation with the PET scan is recommended. Electronically Signed: Constantine Marquez MD at 11:06 EDT Tel [phone], Service support , Medical Necessity - Tobacco Use Smoking Status: Never smoker Tobacco Use: Non-smoker Assessment/Plan All Active Problems (Last Updated 03/16/18 @ 16:19 by Sandrita Jara) Chest pain (Acute) COPD (chronic obstructive pulmonary disease) (Acute) Bronchitis (Acute) RECOMMENDATIONS: 1. Continue prednisone therapy 2. Continue bronchodilators 3. Add Acapella and await sputum culture 4. Continue Levaquin therapy 5. Repeat CT scan as an outpatient at 3 months IMPRESSIONS: 1. Abnormal CT scan Patient with dilated airways with bronchial thickening consistent with bronchiectasis. Patient has had fevers while admitted to the hospital. I did not appreciate the emphysematous changes. Clinical suspicion for bronchiectasis secondary to uncontrolled asthma. Patient can have an alpha-1 antitrypsin checked as an outpatient, along with complete PFTs. Tinea with prednisone burst. Patient will be on a 5 day burst. Continue with bronchodilators. Continue Acapella and await sputum culture. Reasonable to continue Levaquin therapy for now. Clinical suspicion for round atelectasis secondary to mucus plugging, but a repeat CT scan can be completed as an outpatient following resolution of symptoms to rule out malignancy. 2. Sepsis/hypothyroidism/dyslipidemia Complicates care, management, recovery and prognosis. Patient is on appropriate antibiotics. Blood cultures are currently pending. Code Visit Inpatient E&M: 74903 Subs Hosp L2
--- NOTE | 2018-03-29 09:13 | CPS ---
PATIENT WORKING ON PEP ON OWN.
[2018-03-29] MEDS: predniSONE 20 MG Tablet 40 MG PO (09:51)
[2018-03-29] MEDS: guaiFENesin 1,200 MG Tablet 1200 MG PO ×2 (09:51→21:12)
[2018-03-29] MEDS: Aspirin 81 MG TAB.CHEW PO (09:52)
[2018-03-29] MEDS: Heparin Injection (Vial) 5,000 UNIT/ML VIAL 5000 UNIT SC ×2 (09:54→21:12)
[2018-03-29] MEDS: levoFLOXacin IV 750 MG/150 ML BAG 100 MG IV (09:54)
--- NOTE | 2018-03-29 12:52 | PN_ITS ---
<Bimal Bermudez - Last Filed: 03/29/18 12:49> Patient Problems: Active and Suspected Problems (Last Updated 03/16/18 @ 16:19 by Sandrita Jara) Chest pain (Acute) COPD (chronic obstructive pulmonary disease) (Acute) Subjective: Minimal improvement. Non productive cough continues. No fever or chills. No SOB. Sinus congestion and sore throat continues. - Physical Exam General: Alert, Oriented x3, Cooperative HEENT: Atraumatic, PERRLA, EOMI, Normocephalic Neck: Supple, No JVD, Negative Carotid Bruits Lungs: Diminished Cardiovascular: Regular rate, No murmurs Abdomen: Bowel Sounds Present, Soft, Non Tender Extremities: No edema, Capillary Refill Less than 3 Seconds Skin: No rashes, No breakdown Musculoskeletal: No Tenderness to Palpation of Joints or Extremities Neurological: Cranial nerves II-XII grossly intact Psych/Mental Status: Normal Affect, Appropriate, Alert and oriented to time, place, person, mood and affect Vital Signs Temp Pulse Resp BP Pulse Ox 97.4 F L 79 16 113/57 L 96 03/29/18 09:50 03/29/18 11:38 03/29/18 11:38 03/29/18 09:50 03/29/18 11:38 Oxygen Flow Rate (L/min) 2 Oxygen Delivery Method Room Air Weight: 117 lb 11.629 oz Body Mass Index (BMI) 18.4 Intake and Output for Last 24 Hours 03/27/18 03/28/18 03/29/18 23:59 23:59 23:59 Intake Total 3489 / 3489 2587 / 2587 1363 / 1363 Output Total 570 / 570 1500 / 1500 550 / 550 Balance 2919 / 2919 1087 / 1087 813 / 813 Microbiology Past 72 Hours 03/27/18 13:10 Respiratory Panel (PCR) - Final Mucosa - Nasopharyngeal 03/28/18 23:35 Gram Stain - Final Sputum, Expectorated/Coughed 03/27/18 23:00 Influenza Types A,B Direct FA (DEANDRE) - Final Mucosa - Nasopharyngeal 03/27/18 12:58 Legionella Antigen - Final Urine Catheter - Catheter 03/27/18 12:58 Streptococcus pneumoniae Antigen (M - Final Urine Catheter - Catheter Laboratory Tests Past 24 Hrs 03/29/18 05:45 WBC 9.3 RBC 4.53 Hgb 12.7 Hct 37.7 MCV 83.2 MCH 28.0 MCHC 33.7 RDW 13.6 RDW Differential 40.8 Plt Count 249 MPV 10.3 Immature Gran % (Auto) 0.200 Neut % (Auto) 85.4 H Lymph % (Auto) 10.6 L [place] % (Auto) 3.8 Eos % (Auto) 0.0 Baso % (Auto) 0.0 Absolute Neuts (auto) 7.9 H Absolute Lymphs (auto) 0.98 Total Counted Not Reportable Medical Necessity - Tobacco Use Smoking Status: Never smoker Tobacco Use: Non-smoker Assessment/Plan All Active Problems (Last Updated 03/16/18 @ 16:19 by Sandrita Jara) Chest pain (Acute) COPD (chronic obstructive pulmonary disease) (Acute) Bronchitis (Acute) 1. Chest heaviness - resolved. Stress test deferred until pt clinically improves, atypical in nature and more likely 2/2 her URI/bronchitis anyway. Trop neg. EKG neg. Plan for outpatient stress test. d/w patient - agreeable. 2. Acute sepsis 2/2 acute bronchitis - levaquin. WBC worse. This is likely the etiology of her chest heaviness. Fevers continue. Recently with pna. CXR without pna. CT shows infiltrates/atelectasis/edema. Failed outpatent Augmentin x 10 days. Flu screen neg. Urine antigens neg. Continue IS, add PEP therapy. Add mucinex. Pt also has bronchiectasis, levaquin should cover for pseudomonas. culture if sputum production. continue IS/PEP 3. Asthma exacerbation - prednisone, aerosols. Pulm following. 4. Pulmonary nodules - pulmonary not concerned for malignancy, will need follow up imaging. 5. Hypothyroidism - synthroid 6. HLD - statin DVT ppx: heparin DC planning: possibly home tomorrow if continues to improve. This patient was seen by Bimal Bermudez PA-C under the supervision of Doctor Ton olivarez. <Alber Patterson - Last Filed: 03/29/18 13:23> - Physical Exam Vital Signs Temp Pulse Resp BP Pulse Ox 97.4 F L 79 16 113/57 L 96 03/29/18 09:50 03/29/18 11:38 03/29/18 11:38 03/29/18 09:50 03/29/18 11:38 Oxygen Flow Rate (L/min) 2 Oxygen Delivery Method Room Air Weight: 53.4 kg Body Mass Index (BMI) 18.4 Intake and Output for Last 24 Hours 03/27/18 03/28/18 03/29/18 23:59 23:59 23:59 Intake Total 3489 / 3489 2587 / 2587 1363 / 1363 Output Total 570 / 570 1500 / 1500 550 / 550 Balance 2919 / 2919 1087 / 1087 813 / 813 Microbiology Past 72 Hours 03/27/18 13:10 Respiratory Panel (PCR) - Final Mucosa - Nasopharyngeal 03/28/18 23:35 Gram Stain - Final Sputum, Expectorated/Coughed 03/27/18 23:00 Influenza Types A,B Direct FA (DEANDRE) - Final Mucosa - Nasopharyngeal 03/27/18 12:58 Legionella Antigen - Final Urine Catheter - Catheter 03/27/18 12:58 Streptococcus pneumoniae Antigen (M - Final Urine Catheter - Catheter Laboratory Tests Past 24 Hrs 03/29/18 05:45 WBC 9.3 RBC 4.53 Hgb 12.7 Hct 37.7 MCV 83.2 MCH 28.0 MCHC 33.7 RDW 13.6 RDW Differential 40.8 Plt Count 249 MPV 10.3 Immature Gran % (Auto) 0.200 Neut % (Auto) 85.4 H Lymph % (Auto) 10.6 L [place] % (Auto) 3.8 Eos % (Auto) 0.0 Baso % (Auto) 0.0 Absolute Neuts (auto) 7.9 H Absolute Lymphs (auto) 0.98 Total Counted Not Reportable Assessment/Plan This patient was seen in conjunction with Bimal Bermudez PA-C. I have independently interviewed and examined the patient and reviewed pertinent historical, laboratory, and other data. Please refer to Bimal Bermudez PA-C note for details of this patient's presentation, findings, and recommendations. I have reviewed Bimal Bermudez PA-C note and concur with documented findings. In brief, patient is a 77-year-old female admitted with progressive shortness of breath and upper respiratory tract symptoms. 03/29/2018: Patient still remains ill. Was seen in consultation by Dr. Burger with pulmonary medicine who felt the nodules described as spiculated work possibly as a result of bronchiectasis plan is for patient undergo repeat imaging studies following her discharge Physical Examination: GENERAL: cooperative HEENT: Clear conjunctiva, NECK; supple, normal thyroid, CHEST: Diminished to auscultation bilaterally with rhonchi HEART: Regular S1 S2, no audible murmurs ABDOMEN: soft, non-tender, normoactive bowel sounds, SKIN: No Rash Assessment: 1. Sepsis secondary to community-acquired pneumonia with possible atypical organisms 2. Spiculated pulmonary nodules, 3. Mild intermittent asthma 4. Hypothyroidism 5. Dyslipidemia 6. COPD Recommendations: 1. I have discussed the results of my overview and impressions with the patient 2. Options for management were reviewed Code Visit Inpatient E&M: 58919 Subs Hosp L2
[2018-03-29] MEDS: Bisacodyl 5 MG Tablet PO (17:06)
[2018-03-29] MEDS: Tamsulosin HCl 0.4 MG Capsule PO (17:06)
--- NOTE | 2018-03-29 17:47 | CASEMGMT ---
SW spoke with patient and her daughter per their request. They wanted to know options at d/c. SW explained going to a SNF for rehab short term and home health. SW explained what insurance covers as far as home health. They wanted her name on TCU list. They also asked about places in [place] as patient lives in [place]. SW told them SW will call and put her name on the TCU list, but have not heard back as to whether or not they will have a bed for her yet. SW explained SW will follow and assist with d/c planning. SW called [facility] post acute referral line and left a message inquiring if they would have a bed for patient and requested a return call. Liz CORDOBA MSW
[2018-03-29] MEDS: Atorvastatin Calcium 10 MG Tablet 5 MG PO (21:12)
[2018-03-30] VITALS (10 sets, daily range): BP systolic 143–155; BP diastolic 70–87; PULSE 46–79; RESP 16–18; TEMP 36.6–36.8; O2SAT 93–97
[2018-03-30] MEDS: levoFLOXacin 500 MG Tablet PO (06:13)
[2018-03-30] MEDS: Levothyroxine 50 MCG Tablet PO (06:13)
[2018-03-30] MEDS: Acetaminophen 500 MG Tablet 1000 MG PO ×2 (06:13→13:19)
[2018-03-30] MEDS: 0.9% Normal Saline 1,000 ML 100 ML IV (06:13)
[2018-03-30] MEDS: Ipratropium/Albuterol Sulfate 3 ML AMPUL.NEB INHALATION ×3 (07:05→15:15)
--- NOTE | 2018-03-30 08:07 | PCM.PROGNOTE ---
Patient Problems: Active and Suspected Problems (Last Updated 03/16/18 @ 16:19 by Sandrita Jara) Chest pain (Acute) COPD (chronic obstructive pulmonary disease) (Acute) Subjective: Patient mildly improved compared to previous subjectively. Patient remains on room air, but is still having a nonproductive cough. Patient reported significant difficulty with staying in a chair yesterday. - Physical Exam General: Alert, Oriented x3, Cooperative, - - Mild conversational dyspnea. Years older than stated age. HEENT: Atraumatic, PERRLA, EOMI, Normocephalic, - - Symmetric expansion. No dullness to percussion. Oral: Moist Mucosa, No Gingival or Mucosal Lesions/ Ulcerations Neck: Supple, No JVD, No Nodes, Trachea Midline Lungs: No rhonchi, No rales, Diminished, Wheezes, - - Symmetric expansion. No dullness to percussion. Cardiovascular: Regular rate, Regular Rhythm, Normal S1, Normal S2, No murmurs, No rub noted, No Gallop Abdomen: Bowel Sounds Present, Soft, Non Tender, Non-Distended Extremities: No clubbing, No cyanosis, No edema, Capillary Refill Less than 3 Seconds Skin: No rashes, No breakdown Musculoskeletal: No Tenderness to Palpation of Joints or Extremities Lymphatic: No Cervical, Supraclavicular, or Inguinal Adenopathy Neurological: Cranial nerves II-XII grossly intact, Neuro grossly intact, Motor Exam 5/5 strength throughout Psych/Mental Status: Alert and oriented to time, place, person, mood and affect Vital Signs Temp Pulse Resp BP Pulse Ox 36.8 C 46 L 16 151/87 H 97 03/30/18 03:04 03/30/18 07:00 03/30/18 03:04 03/30/18 03:04 03/30/18 03:04 Oxygen Flow Rate (L/min) 2 Oxygen Delivery Method Room Air Weight: 53.4 kg Body Mass Index (BMI) 18.4 Intake and Output for Last 24 Hours 03/28/18 03/29/18 03/30/18 23:59 23:59 23:59 Intake Total 2587 / 2587 2740 / 2740 668 / 668 Output Total 1500 / 1500 1700 / 1700 650 / 650 Balance 1087 / 1087 1040 / 1040 Microbiology Past 72 Hours 03/27/18 22:10 Blood Culture - Preliminary Blood Culture (Wb) - Left Hand No growth in 48 hours. 03/27/18 22:10 Blood Culture - Preliminary Blood Culture (Wb) - Left Forearm No growth in 48 hours. 03/27/18 13:10 Respiratory Panel (PCR) - Final Mucosa - Nasopharyngeal 03/28/18 23:35 Gram Stain - Final Sputum, Expectorated/Coughed 03/27/18 23:00 Influenza Types A,B Direct FA (DEANDRE) - Final Mucosa - Nasopharyngeal 03/27/18 12:58 Legionella Antigen - Final Urine Catheter - Catheter 03/27/18 12:58 Streptococcus pneumoniae Antigen (M - Final Urine Catheter - Catheter Medical Necessity - Tobacco Use Smoking Status: Never smoker Tobacco Use: Non-smoker Assessment/Plan All Active Problems (Last Updated 03/16/18 @ 16:19 by Sandrita Jara) Chest pain (Acute) COPD (chronic obstructive pulmonary disease) (Acute) Bronchitis (Acute) RECOMMENDATIONS: 1. Continue prednisone therapy and bronchodilator 2. Increase activity as tolerated 3. Add Acapella and await sputum culture 4. Continue Levaquin therapy 5. Repeat CT scan as an outpatient at 3 months IMPRESSIONS: 1. Abnormal CT scan Patient with dilated airways with bronchial thickening consistent with bronchiectasis. Patient has had fevers while admitted to the hospital. I did not appreciate the emphysematous changes. Clinical suspicion for bronchiectasis secondary to uncontrolled asthma. Patient can have an alpha-1 antitrypsin checked as an outpatient, along with complete PFTs. Continue with prednisone burst. Patient will be on a 5 day burst at a minimum. Continue with bronchodilators. Continue Acapella and await sputum culture. She did have gram positives on Gram stain, so MRSA may be a possibility. However, patient's fever curve appears to be improving on Levaquin therapy. Await final results. 2. Sepsis/hypothyroidism/dyslipidemia Complicates care, management, recovery and prognosis. Patient is on appropriate antibiotics. Blood cultures are currently pending. Code Visit Inpatient E&M: 87419 Subs Hosp L2
[2018-03-30] MEDS: Heparin Injection (Vial) 5,000 UNIT/ML VIAL 5000 UNIT SC (09:09)
[2018-03-30] MEDS: guaiFENesin 1,200 MG Tablet 1200 MG PO (09:10)
[2018-03-30] MEDS: predniSONE 20 MG Tablet 40 MG PO (09:10)
[2018-03-30] MEDS: Bisacodyl 5 MG Tablet PO (09:10)
[2018-03-30] MEDS: Aspirin 81 MG TAB.CHEW PO (09:10)
--- NOTE | 2018-03-30 11:50 | CASEMGMT ---
YAKELIN spoke with [facility] and they will have a bed for patient. YAKELIN also spoke with Carlita in TCU and she will start the pre-cert. YAKELIN also spoke with patient and her letting them know TCU will have a bed for her and as soon as her insurance approves she will go. Plan: [facility] TCU pending insurance approval. Liz CHRISTIANSON
--- NOTE | 2018-03-30 11:54 | PCM.TXEXTCAR ---
- Diet 03/28/18 08:57 Diet: Cardiac/Low Cholesterol Is pt able to select menu?: Yes - Routine Orders/Code Status Suppository Type: Dulcolax 10mg Suppository Frequency: Daily PRN Routine Lab Work: CBC - 1 week, BMP - 1 week Code Status: Full Code - Therapies Physical Therapy: Eval and Treat Occupational Therapy: Eval and Treat - Problem/Diagnosis (1) Acute bronchitis Status: Acute Current Visit: Yes (2) Sepsis Status: Acute Current Visit: Yes (3) Asthma exacerbation Status: Acute Current Visit: Yes (4) Bronchiectasis Status: Acute Current Visit: Yes (5) Chest pain Status: Acute Current Visit: Yes (6) Hypothyroidism Status: Chronic Current Visit: Yes - Allergies/Procedures Done in Hospital Allergies/Adverse Reactions: Allergies No Known Allergies Allergy (Verified 03/16/18 16:17) Procedures: None - Type of Care/Length of Stay Estimated LOS: Convalescent Care Less Than 30 days Type of Care Needed: Skilled Rehab Potential: Fair Prognosis: Fair - Additional Orders/Day of Discharge Additional Orders: She will also need an outpatient stress test in one week after discharge. Day of Discharge: 03/30/18 - Dietary and Speech Recommendations Dietitian Recommendations/Changes: Suggest liberalize diet to regular to help optimize PO at meals. Will continue 120 ml ensure enlive 4 x daily on medpass. - Follow Up Care Primary Care Physician: Abeba Castanon DO [Primary Care Provider] - Please follow up with your Primary Care Physician in: 2 weeks Please Follow Up With: Hernandez Burger MD When: 2 weeks following discharge from TCU
--- NOTE | 2018-03-30 14:32 | PCM.PROGNOTE ---
Patient Problems: Active and Suspected Problems (Last Updated 03/16/18 @ 16:19 by Sandrita Jara) Chest pain (Acute) COPD (chronic obstructive pulmonary disease) (Acute) Acute bronchitis (Acute) Sepsis (Acute) Asthma exacerbation (Acute) Bronchiectasis (Acute) Subjective: Pt breathing improved. Overall she feels very weak. She gets tired sitting up in the chair for an hour. Cough improved. No fever or chills. D/w pt and - agreeable to TCU and continued rehab. - Physical Exam General: Alert, Oriented x3, Cooperative HEENT: Atraumatic, PERRLA, EOMI, Normocephalic Neck: Supple, No JVD, Negative Carotid Bruits Lungs: Clear to auscultation, Normal air movement Cardiovascular: Regular rate, No murmurs Abdomen: Bowel Sounds Present, Soft, Non Tender Extremities: No edema, Capillary Refill Less than 3 Seconds Skin: No rashes, No breakdown Musculoskeletal: No Tenderness to Palpation of Joints or Extremities Neurological: Cranial nerves II-XII grossly intact Psych/Mental Status: Anxious, Alert and oriented to time, place, person, mood and affect Vital Signs Temp Pulse Resp BP Pulse Ox 98.2 F 77 16 155/79 H 96 03/30/18 09:04 03/30/18 11:04 03/30/18 11:04 03/30/18 09:04 03/30/18 09:04 Oxygen Flow Rate (L/min) 2 Oxygen Delivery Method Room Air Weight: 117 lb 11.629 oz Body Mass Index (BMI) 18.4 Intake and Output for Last 24 Hours 03/28/18 03/29/18 03/30/18 23:59 23:59 23:59 Intake Total 2587 / 2587 2740 / 2740 1410 / 1410 Output Total 1500 / 1500 1700 / 1700 1400 / 1400 Balance 1087 / 1087 1040 / 1040 10 / 10 Microbiology Past 72 Hours 03/28/18 23:35 Gram Stain - Final Sputum, Expectorated/Coughed Respiratory Culture - Preliminary 03/27/18 22:10 Blood Culture - Preliminary Blood Culture (Wb) - Left Hand No growth in 48 hours. 03/27/18 22:10 Blood Culture - Preliminary Blood Culture (Wb) - Left Forearm No growth in 48 hours. 03/27/18 13:10 Respiratory Panel (PCR) - Final Mucosa - Nasopharyngeal 03/27/18 23:00 Influenza Types A,B Direct FA (DEANDRE) - Final Mucosa - Nasopharyngeal 03/27/18 12:58 Legionella Antigen - Final Urine Catheter - Catheter 03/27/18 12:58 Streptococcus pneumoniae Antigen (M - Final Urine Catheter - Catheter Medical Necessity - Tobacco Use Smoking Status: Never smoker Tobacco Use: Non-smoker Assessment/Plan All Active Problems (Last Updated 03/16/18 @ 16:19 by Sandrita Jara) Chest pain (Acute) COPD (chronic obstructive pulmonary disease) (Acute) Acute bronchitis (Acute) Sepsis (Acute) Asthma exacerbation (Acute) Bronchiectasis (Acute) Bronchitis (Acute) 1. Chest heaviness - resolved. Stress test deferred until pt clinically improves, atypical in nature and more likely 2/2 her URI/bronchitis anyway. Trop neg. EKG neg. Plan for outpatient stress test. d/w patient - agreeable. 2. Acute sepsis 2/2 acute bronchitis - bronchiectasis on CT. Called micro about sputum. No staph. Possibly strep on culture. levaquin for total 7 days. continue IS/PEP therapy. Mucinex. 3. Asthma exacerbation - prednisone taper 12-14 days, aerosols. Pulm following - follow up in office as directed. 4. Pulmonary nodules - pulmonary not concerned for malignancy, will need follow up imaging -ct 3 months with pulm. 5. Hypothyroidism - synthroid 6. HLD - statin 7. Urinary retention - flomax. voiding trial with 200 cc residual. Will leave montiel out, continue flomax, f.u with Dr. Bailon as o/p 1-2 weeks. DVT ppx: heparin DC planning: TCU when accepted. This patient was seen by Bimal Bermudez PA-C under the supervision of Doctor Patterson.
--- NOTE | 2018-03-30 15:05 | CASEMGMT ---
Patient was approved to go to TCU. SW notified patient, RN, and center mgr. Plan: [facility] TCU under skilled level of care Liz CHRISTIANSON
--- NOTE | 2018-03-30 15:09 | PCM.DC.SUM ---
<Bimal Bermudez - Last Filed: 03/30/18 15:09> Discharge Date and Diagnosis - Problem List Patient Problems: Active and Suspected Problems (Last Updated 03/16/18 @ 16:19 by Sandrita Jara) Chest pain (Acute) COPD (chronic obstructive pulmonary disease) (Acute) Acute bronchitis (Acute) Sepsis (Acute) Asthma exacerbation (Acute) Bronchiectasis (Acute) Date of Admission: 03/26/18 Date of Discharge: 03/30/18 - Primary Discharge Diagnosis Active and Suspected Problems (Last Updated 03/16/18 @ 16:19 by Sandrita Jara) Chest pain (heaviness) likely 2/2 asthma / bronchitis Acute asthma exacerbation Acute sepsis 2/2 acute bronchitis Bronchiectasis pulmonary nodules HLD Hypothyroidism - Secondary Discharge Diagnosis Chronic Problems (Last Updated 03/16/18 @ 16:19 by Sandrita Jara) Hypothyroidism (Chronic) Hospital Course and Treatment Imaging Results: RAD/Chest 1 View (Portable) IMPRESSION: 1. No acute cardiopulmonary pathology. 2. COPD. 3. No interval change when compared to 03/16/2018. CT/Chest without Contrast IMPRESSION: Emphysematous changes. Small bilateral pleural effusions with bibasilar atelectasis and/or infiltrates. Scattered nodular densities in both lower lobes as described. Correlation with the PET scan is recommended. Consults: Tao - Pulmonology Operations: None Procedures: None Summary of Care Provided: Physical exam on day of discharge: See daily progress note Hospital course: The patient is a 77 year old F with a PMhx of asthma, hypothyroidism, HLD, who presented to the ER with c/o chest heaviness with sinus congestion, productive cough, and fevers having recently completed 10 days of augmentin as outpatient for pna with little improvement. She was also tremulous and very weak with difficulty ambulating. She was admitted for chest heaviness and sepsis 2/2 acute bronchitis. CXR was negative for infiltrates. Multiple EKGs were done showing no acute process, tele was negative, and troponins were negative. The patient was too weak to tolerate a stress test. The chest heaviness was felt to be secondary to her sepsis, asthma, bronchitis. She was placed on steroids, bronchodilators, and levaquin. A CT was obtained showing questionable nodules and COPD. Pulmonology was consulted. Pulm felt that the CT was c/w bronchiectasis and severe asthma. They recommended aerosols, steroids, and antibiotics. Sputum culture has no significant growth to date, negative urine antigens, negative respiratory panel. She responded well to steroids, levaquin, and aerosols. She continued to be severely debilitated with poor ability to even sit up in a chair. PTOT worked with her and recommended SNF. She was accepted to TCU and transferred there in stable condition. She will complete a prednisone taper, continue aerosols, and complete 4 more days of levaquin for 7 days total abx therapy. She does not require supplemental oxygen at this time. She was advised to have a stress test as an outpatient in one week. She was advised to see Dr. Burger 2 weeks following DC from TCU. She will need to see her PCP in 1-2 weeks. This patient was seen by Bimal Bermudez PA-C under the supervision of Doctor Yesenia. [] Discharge Diet: Low fat/ Low Cholesterol, 2000 mg Sodium Diet Discharge Activity: Return to Normal Activity Home Medications: Medications to take at Discharge Aspirin 81 mg PO QHS 07/02/17 Cholecalciferol (Vitamin D3) [Vitamin D3] 4,000 unit PO LUNCH 07/02/17 Levothyroxine [Synthroid] 50 mcg PO DAILY 07/02/17 Simvastatin [Zocor] 1 tab PO QHS 07/02/17 budesonide-formoterol HFA 160 mcg-4.5 mcg/actuation aerosol inhaler 1 puff INHALATION BID 03/16/18 Ensure Enlive 120 ml PO 4X/DAY liquid 03/30/18 Guaifenesin [Mucinex] 1,200 mg PO BID tablet 03/30/18 Ipratropium/Albuterol Sulfate [Duoneb] 3 ml INHALATION Q4HWA.RT ampul.neb 03/30/18 Prednisone 10 mg PO UD #22 tablet 03/30/18 Tamsulosin HCl [Flomax] 0.4 mg PO DAILY@1730 capsule 03/30/18 levoFLOXacin tablet [Levaquin tablet] 500 mg PO DAILY@0600 #4 tablet 03/30/18 Following Prescrptions Were Given to Patient: levoFLOXacin tablet [Levaquin tablet] 500 mg PO DAILY@0600 #4 tablet Prednisone 10 mg PO UD #22 tablet Other Amb Orders: Nuclear Stress Test - Chemical [NM] Time Frame: 1 Week, Location: None Selected Primary Care Physician: Abeba Castanon DO [Primary Care Provider] - Please follow up with your Primary Care Physician in: 2 weeks Please Follow Up With: Hernandez Burger MD When: 2 weeks following discharge from TCU Disposition: Halfway facility Minutes spent on discharge:: 35 Patient Condition:: Stable Medical Necessity - Tobacco Use Smoking Status: Never smoker Tobacco Use: Non-smoker Meaningful Use Info Meaningful Use Diagnoses (Choose all that apply): None applicable <Alber Patterson - Last Filed: 03/30/18 15:27> Discharge Date and Diagnosis - Primary Discharge Diagnosis Active and Suspected Problems (Last Updated 03/16/18 @ 16:19 by Sandrita Jara) Chest pain (Acute) COPD (chronic obstructive pulmonary disease) (Acute) Acute bronchitis (Acute) Sepsis (Acute) Asthma exacerbation (Acute) Bronchiectasis (Acute) - Secondary Discharge Diagnosis Chronic Problems (Last Updated 03/16/18 @ 16:19 by Sandrita Jara) Hypothyroidism (Chronic) Hospital Course and Treatment Summary of Care Provided: This patient was seen in conjunction with Bimal Bermudez PA-C. I have independently interviewed and examined the patient and reviewed pertinent historical, laboratory, and other data. Please refer to Bimal Bermudez PA-C note for details of this patient's presentation, findings, and recommendations. I have reviewed Bimal Bermudez PA-C note and concur with documented findings. In brief, patient is a 77-year-old female admitted with progressive shortness of breath and upper respiratory tract symptoms. Physical Examination: GENERAL: cooperative HEENT: Clear conjunctiva, NECK; supple, normal thyroid, CHEST: Diminished to auscultation bilaterally with rhonchi HEART: Regular S1 S2, no audible murmurs ABDOMEN: soft, non-tender, normoactive bowel sounds, SKIN: No Rash Assessment: 1. Sepsis secondary to community-acquired pneumonia with possible atypical organisms 2. Spiculated pulmonary nodules, 3. Mild intermittent asthma 4. Hypothyroidism 5. Dyslipidemia 6. COPD Hospital course: As elicited above Time spent on discharge: 35 minutes Code Visit Inpatient E&M: 96446 Disch Hosp
--- NOTE | 2018-03-30 15:18 | DS.PCM_ITS ---
<Bimal Bermudez - Last Filed: 03/30/18 15:09> Discharge Date and Diagnosis - Problem List Patient Problems: Active and Suspected Problems (Last Updated 03/16/18 @ 16:19 by Sandrita Jara) Chest pain (Acute) COPD (chronic obstructive pulmonary disease) (Acute) Acute bronchitis (Acute) Sepsis (Acute) Asthma exacerbation (Acute) Bronchiectasis (Acute) Date of Admission: 03/26/18 Date of Discharge: 03/30/18 - Primary Discharge Diagnosis Active and Suspected Problems (Last Updated 03/16/18 @ 16:19 by Sandrita Jara) Chest pain (heaviness) likely 2/2 asthma / bronchitis Acute asthma exacerbation Acute sepsis 2/2 acute bronchitis Bronchiectasis pulmonary nodules HLD Hypothyroidism - Secondary Discharge Diagnosis Chronic Problems (Last Updated 03/16/18 @ 16:19 by Sandrita Jara) Hypothyroidism (Chronic) Hospital Course and Treatment Imaging Results: RAD/Chest 1 View (Portable) IMPRESSION: 1. No acute cardiopulmonary pathology. 2. COPD. 3. No interval change when compared to 03/16/2018. CT/Chest without Contrast IMPRESSION: Emphysematous changes. Small bilateral pleural effusions with bibasilar atelectasis and/or infiltrates. Scattered nodular densities in both lower lobes as described. Correlation with the PET scan is recommended. Consults: Tao - Pulmonology Operations: None Procedures: None Summary of Care Provided: Physical exam on day of discharge: See daily progress note Hospital course: The patient is a 77 year old F with a PMhx of asthma, hypothyroidism, HLD, who presented to the ER with c/o chest heaviness with sinus congestion, productive cough, and fevers having recently completed 10 days of augmentin as outpatient for pna with little improvement. She was also tremulous and very weak with difficulty ambulating. She was admitted for chest heaviness and sepsis 2/2 acute bronchitis. CXR was negative for infiltrates. Multiple EKGs were done showing no acute process, tele was negative, and troponins were negative. The patient was too weak to tolerate a stress test. The chest heaviness was felt to be secondary to her sepsis, asthma, bronchitis. She was placed on steroids, bronchodilators, and levaquin. A CT was obtained showing questionable nodules and COPD. Pulmonology was consulted. Pulm felt that the CT was c/w bronchiectasis and severe asthma. They recommended aerosols, steroids, and antibiotics. Sputum cu lture has no significant growth to date, negative urine antigens, negative respiratory panel. She responded well to steroids, levaquin, and aerosols. She continued to be severely debilitated with poor ability to even sit up in a chair. PTOT worked with her and recommended SNF. She was accepted to TCU and transferred there in stable condition. She will complete a prednisone taper, continue aerosols, and complete 4 more days of levaquin for 7 days total abx therapy. She does not require supplemental oxygen at this time. She was advised to have a stress test as an outpatient in one week. She was advised to see Dr. Burger 2 weeks following DC from TCU. She will need to see her PCP in 1- 2 weeks. This patient was seen by Bimal Bermudez PA-C under the supervision of Doctor Yesenia. [] Discharge Diet: Low fat/ Low Cholesterol, 2000 mg Sodium Diet Discharge Activity: Return to Normal Activity Home Medications: Medications to take at Discharge Aspirin 81 mg PO QHS 07/02/17 Cholecalciferol (Vitamin D3) [Vitamin D3] 4,000 unit PO LUNCH 07/02/17 Levothyroxine [Synthroid] 50 mcg PO DAILY 07/02/17 Simvastatin [Zocor] 1 tab PO QHS 07/02/17 budesonide-formoterol HFA 160 mcg-4.5 mcg/actuation aerosol inhaler 1 puff INHALATION BID 03/16/18 Ensure Enlive 120 ml PO 4X/DAY liquid 03/30/18 Guaifenesin [Mucinex] 1,200 mg PO BID tablet 03/30/18 Ipratropium/Albuterol Sulfate [Duoneb] 3 ml INHALATION Q4HWA.RT ampul.neb 03/30/18 Prednisone 10 mg PO UD #22 tablet 03/30/18 Tamsulosin HCl [Flomax] 0.4 mg PO DAILY@1730 capsule 03/30/18 levoFLOXacin tablet [Levaquin tablet] 500 mg PO DAILY@0600 #4 tablet 03/30/18 Following Prescrptions Were Given to Patient: levoFLOXacin tablet [Levaquin tablet] 500 mg PO DAILY@0600 #4 tablet Prednisone 10 mg PO UD #22 tablet Other Amb Orders: Nuclear Stress Test - Chemical [NM] Time Frame: 1 Week, Location: None Selected Primary Care Physician: Abeba Castanon DO [Primary Care Provider] - Please follow up with your Primary Care Physician in: 2 weeks Please Follow Up With: Hernandez Burger MD When: 2 weeks following discharge from TCU Disposition: Care Home facility Minutes spent on discharge:: 35 Patient Condition:: Stable Medical Necessity - Tobacco Use Smoking Status: Never smoker Tobacco Use: Non-smoker Meaningful Use Info Meaningful Use Diagnoses (Choose all that apply): None applicable <Alber Patterson - Last Filed: 03/30/18 15:27> Discharge Date and Diagnosis - Primary Discharge Diagnosis Active and Suspected Problems (Last Updated 03/16/18 @ 16:19 by Sandrita Jara) Chest pain (Acute) COPD (chronic obstructive pulmonary disease) (Acute) Acute bronchitis (Acute) Sepsis (Acute) Asthma exacerbation (Acute) Bronchiectasis (Acute) - Secondary Discharge Diagnosis Chronic Problems (Last Updated 03/16/18 @ 16:19 by Sandrita Jara) Hypothyroidism (Chronic) Hospital Course and Treatment Summary of Care Provided: This patient was seen in conjunction with Bimal Bermudez PA-C. I have independently interviewed and examined the patient and reviewed pertinent historical, laboratory, and other data. Please refer to Bimal Bermudez PA-C note for details of this patient's presentation, findings, and recommendations. I have reviewed Bimal Bermudez PA-C note and concur with documented findings. In brief, patient is a 77-year-old female admitted with progressive shortness of breath and upper respiratory tract symptoms. Physical Examination: GENERAL: cooperative HEENT: Clear conjunctiva, NECK; supple, normal thyroid, CHEST: Diminished to auscultation bilaterally with rhonchi HEART: Regular S1 S2, no audible murmurs ABDOMEN: soft, non-tender, normoactive bowel sounds, SKIN: No Rash Assessment: 1. Sepsis secondary to community-acquired pneumonia with possible atypical organisms 2. Spiculated pulmonary nodules, 3. Mild intermittent asthma 4. Hypothyroidism 5. Dyslipidemia 6. COPD Hospital course: As elicited above Time spent on discharge: 35 minutes Code Visit Inpatient E&M: 52801 Disch Hosp
--- NOTE | 2018-03-30 16:09 | NURSING ---
Called report to Janett LOAIZA in TCU
== END 2018-03-30 16:14 | disposition skilled nursing facility (03) | DRG 872 ==
LOC: ED 13:30 → PCU 16:44
PROVIDERS: Family Medicine; Physician Assistant; Admitting Provider Internal Medicine; Emergency Provider Emergency Medicine; Family Provider Internal Medicine; PCP Internal Medicine; Visit Provider Internal Medicine
DX: A41.9 Sepsis, unspecified organism (principal); J47.0 Bronchiectasis with acute lower respiratory infection; J45.21 Mild intermittent asthma with (acute) exacerbation; E78.5 Hyperlipidemia, unspecified; E03.9 Hypothyroidism, unspecified; J20.9 Acute bronchitis, unspecified; Z23 Encounter for immunization; H61.23 Impacted cerumen, bilateral; R91.8 Other nonspecific abnormal finding of lung field
CPT/HCPCS: 36415; 71045; 71250; 80048; 80061; 81001; 82962; 84484; 85025; 85610; 85730; 87040; 87070; 87205; 87449; 87633; 87804; 93005; 94640; 94667; 94668; 97162; 97165; 97530; 97802; 99283; J7030; 90686; A4216

== ENCOUNTER 2018-03-30 16:30 | Inpatient (IN) | payer MEDICARE, SELFPAY ==
[2018-03-30 16:55] VITALS: BP 142/75; PULSE 79; RESP 18; TEMP 36.4; O2SAT 94; BMI 21.1
--- NOTE | 2018-03-30 16:55 | NURSING ---
Patient admitted to room 15 from PCU via bed. Patient oriented to room and call light system explained.
[2018-03-30] MEDS: Ipratropium/Albuterol Sulfate 3 ML AMPUL.NEB INHALATION (19:55)
[2018-03-30 20:10] VITALS: PULSE 80; RESP 18; O2SAT 94
[2018-03-30] MEDS: guaiFENesin 1,200 MG Tablet 1200 MG PO (20:12)
[2018-03-30] MEDS: Tamsulosin HCl 0.4 MG Capsule PO (20:12)
[2018-03-30] MEDS: Senna/Docusate Sodium 1 Tablet PO (20:12)
[2018-03-30] MEDS: Atorvastatin Calcium 10 MG Tablet 5 MG PO (20:12)
[2018-03-30 20:17] VITALS: PULSE 82; O2SAT 94
--- NOTE | 2018-03-30 20:20 | PCM.HP.STD ---
Problem List (1) Fever Status: Acute (2) Pulmonary nodules Status: Chronic (3) Urinary retention Status: Acute (4) Debility Status: Acute (5) Hyperlipidemia Status: Chronic (6) Vitamin D deficiency Status: Chronic (7) Chest pain Status: Acute Qualifiers: (8) Hypothyroidism Status: Chronic Qualifiers: (9) COPD (chronic obstructive pulmonary disease) Status: Chronic Qualifiers: (10) Acute bronchitis Status: Acute (11) Sepsis Status: Acute (12) Bronchiectasis Status: Chronic History of Present Illness Date of Admission: 03/30/18 Chief Complaint: Here for rehabilitation, strengthening, prior to discharge home with spouse. 77 year old female with below past medical history presented to [facility] Emergency Department 03/26/2018 with chest pain. 03/26/2018 Chest X-ray showed COPD, otherwise negative. Chest pain x 3 days, intermittent. Bricks on chest. Mild shortness of breath, dry cough, prescribed Augmentin at urgent care without improvement. EKG sinus rate 85, negative for ischemia. WBC 11.4, BMP okay, Troponin negative. 03/26/2018 Admit to Hospital. Chest pain possible costochondritis. Serial enzymes, Aspirin 81MG daily, NTG PRN. Aerosols for bronchitis. 03/27/2018 Stress test for AM. Fever > 100 despite Tylenol. Augmentin broadened to Levaquin for community acquired pneumonia. Check respiratory panel, urine antigens for strep pneumo, legionella. 03/28/2018 CT chest showed bilateral pleural effusions, bibasilar atelectasis/infiltrates. Nodular densities, PET scan recommended. Stress test deferred. Dr. Burger recommended pulmicort changed to prednisone. Continue bronchodilators. Acapella, sputum culture. Continue Levaquin. Dr. Burger thought pulmonary nodular densities more related to bronchiectasis rather than cancer. 03/29/2018 Indwelling montiel catheter for urinary retention. Mucinex for bronchiectasis. Sputum culture normal darcy, respiratory panel negative, urinary antigens for strep pneumo, legionella NEGATIVE. 03/30/2018 Tamsulosin for urinary retention, montiel removed, follow up with Dr. Bailon. 03/30/2018 Admit to TCU with debility, here for rehabilitation, strengthening, prior to discharge home with spouse. Daughter involved with care. Cardiac stress test as outpatient. Past Medical History Past Medical History (Chronic Problems): Chronic Problems (Last Updated 03/16/18 @ 16:19 by Sandrita Jaar) Hypothyroidism (Chronic) COPD (chronic obstructive pulmonary disease) (Chronic) Bronchiectasis (Chronic) Pulmonary nodules (Chronic) Hyperlipidemia (Chronic) Vitamin D deficiency (Chronic) Medical History: Medical History (Last Updated 03/16/18 @ 16:19 by Sandrita Jara) Asthma J45.909 Allergies No Known Allergies Allergy (Verified 03/16/18 16:17) Home Medications: Ambulatory Orders Medication Instructions Recorded Aspirin 81 mg PO QHS 07/02/17 Cholecalciferol (Vitamin D3) 4,000 unit PO LUNCH 07/02/17 [Vitamin D3] Levothyroxine [Synthroid] 50 mcg PO DAILY 07/02/17 Simvastatin [Zocor] 1 tab PO QHS 07/02/17 budesonide-formoterol HFA 160 1 puff INHALATION BID 03/16/18 mcg-4.5 mcg/actuation aerosol inhaler Ensure Enlive 120 ml PO 4X/DAY 03/30/18 Guaifenesin [Mucinex] 1,200 mg PO BID 03/30/18 Ipratropium/Albuterol Sulfate 3 ml INHALATION Q4HWA.RT 03/30/18 [Duoneb] Prednisone 10 mg PO UD 03/30/18 Tamsulosin HCl [Flomax] 0.4 mg PO DAILY@1730 03/30/18 levoFLOXacin tablet [Levaquin 500 mg PO DAILY@0600 03/30/18 tablet] Surgical History: hysterectomy Psychiatric History: No pertinent psych hx 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 Denies: Chills, Fever, Weight Change HEENT: Denies: Head Aches, Sinus Congestion, Sinus Drainage Cardiovascular: Denies: Chest Pain, Palpitations Respiratory: Denies: Cough, Shortness of breath at rest, Sputum production Gastrointestinal: Denies: Abdominal Pain, Nausea, Vomiting Genitourinary: Denies: Dysuria Musculoskeletal: Denies: Joint Pain, Joint Tenderness Skin: Denies: Rash, Wounds Neurological: Denies: Numbness, Tingling, Focal weakness Psychiatric: Denies: Anxiety, Depression, Homicidal Ideations, Suicidal Ideations Hematologic/ Lymphatic: Denies: Easy Bruising, Easy Bleeding VTE Information - Inpt Only VTE Present on Admission: No VTE Mechan Device Prophylaxis: Knee High FORTUNATO Hose VTE Pharm Prophylaxis ordered?: Yes Patient Problems: Active and Suspected Problems (Last Updated 03/16/18 @ 16:19 by Sandrita Jara) Fever (Acute) Urinary retention (Acute) Debility (Acute) - Physical Exam General: Alert, Oriented x3, Cooperative HEENT: Atraumatic, PERRLA, EOMI, Normocephalic Neck: Supple, No JVD, Negative Carotid Bruits Lungs: Clear to auscultation, Normal air movement Cardiovascular: Regular rate, No murmurs Abdomen: Bowel Sounds Present, Soft, Non Tender Extremities: No edema, Capillary Refill Less than 3 Seconds Skin: No rashes, No breakdown Musculoskeletal: No Tenderness to Palpation of Joints or Extremities Neurological: Cranial nerves II-XII grossly intact Psych/Mental Status: Normal Affect, Appropriate Vital Signs Temp Pulse Resp BP Pulse Ox 97.6 F L 80 18 142/75 H 94 03/30/18 16:55 03/30/18 20:10 03/30/18 20:10 03/30/18 16:55 03/30/18 20:10 Oxygen Delivery Method Room Air Weight: 59.421 kg Body Mass Index (BMI) 21.1 Intake and Output for Last 24 Hours 03/28/18 03/29/18 03/30/18 23:59 23:59 23:59 Intake Total 120 / 120 Balance 120 / 120 Assessment/Plan All Active Problems (Last Updated 03/16/18 @ 16:19 by Sandrita Jara) Chest pain (Acute) Acute bronchitis (Acute) Sepsis (Acute) Asthma exacerbation (Acute) Fever (Acute) Urinary retention (Acute) Debility (Acute) Bronchitis (Acute) 77 year old female with below past medical history hospitalized for chest pain, myocardial infarction ruled out, stress test as outpatient, complicated by sepsis secondary to acute bronchitis, admitted to TCU with debility, here for rehabilitation, strengthening, prior to discharge home with spouse. Debility - PT/OT. Pain - Tylenol 1000MG Q8H PRN mild pain. Bowel - Miralax 17GM daily, Senna/colace 1 tablet BID, Dulcolax 10MG PO daily PRN. Pneumonia vaccination - Administer Prevnar 13 and/or Pneumovax 23 as necessary. DVT prophylaxis - Lovenox 40MG SC daily. Chest pain - Aspirin 81MG daily, stress test as outpatient. Hyperlipidemia - Atorvastatin 5MG QHS. Vitamin D deficiency - D3 4000IU daily. Nutrition - Ensure 120ML 4x/day. COPD - Advair HFA 1 puff BID, Duoneb 3ML [id number], Prednisone 40MG daily thru 04/10/2018. Bronchiectasis - Mucinex 1200MG BID, IS. Bronchitis - Levaquin 500MG daily thru 04/03/2018. Hypothyroidism - Levothyroxine 50MCG daily. Urinary retention - Tamsulosin 0.4MG daily, montiel out, bladder scan surveillance, Dr. Bailon for follow-up.
--- NOTE | 2018-03-30 20:31 | HP.PCM_ITS ---
Problem List (1) Fever Status: Acute (2) Pulmonary nodules Status: Chronic (3) Urinary retention Status: Acute (4) Debility Status: Acute (5) Hyperlipidemia Status: Chronic (6) Vitamin D deficiency Status: Chronic (7) Chest pain Status: Acute Qualifiers: (8) Hypothyroidism Status: Chronic Qualifiers: (9) COPD (chronic obstructive pulmonary disease) Status: Chronic Qualifiers: (10) Acute bronchitis Status: Acute (11) Sepsis Status: Acute (12) Bronchiectasis Status: Chronic History of Present Illness Date of Admission: 03/30/18 Chief Complaint: Here for rehabilitation, strengthening, prior to discharge home with spouse. 77 year old female with below past medical history presented to [facility] Emergency Department 03/26/2018 with chest pain. 03/26/2018 Chest X-ray showed COPD, otherwise negative. Chest pain x 3 days, intermittent. Bricks on chest. Mild shortness of breath, dry cough, prescribed Augmentin at urgent care without improvement. EKG sinus rate 85, negative for ischemia. WBC 11.4, BMP okay, Troponin negative. 03/26/2018 Admit to Hospital. Chest pain possible costochondritis. Serial enzymes, Aspirin 81MG daily, NTG PRN. Aerosols for bronchitis. 03/27/2018 Stress test for AM. Fever > 100 despite Tylenol. Augmentin broadened to Levaquin for community acquired pneumonia. Check respiratory panel, urine antigens for strep pneumo, legionella. 03/28/2018 CT chest showed bilateral pleural effusions, bibasilar atelectasis/infiltrates. Nodular densities, PET scan recommended. Stress test deferred. Dr. Burger recommended pulmicort changed to prednisone. Continue bronchodilators. Acapella, sputum culture. Continue Levaquin. Dr. Burger thought pulmonary nodular densities more related to bronchiectasis rather than cancer. 03/29/2018 Indwelling montiel catheter for urinary retention. Mucinex for bronchiectasis. Sputum culture normal darcy, respiratory panel negative, urinary antigens for strep pneumo, legionella NEGATIVE. 03/30/2018 Tamsulosin for urinary retention, montiel removed, follow up with Dr. Bailon. 03/30/2018 Admit to TCU with debility, here for rehabilitation, strengthening, prior to discharge home with spouse. Daughter involved with care. Cardiac stress test as outpatient. Past Medical History Past Medical History (Chronic Problems): Chronic Problems (Last Updated 03/16/18 @ 16:19 by Sandrita Jara) Hypothyroidism (Chronic) COPD (chronic obstructive pulmonary disease) (Chronic) Bronchiectasis (Chronic) Pulmonary nodules (Chronic) Hyperlipidemia (Chronic) Vitamin D deficiency (Chronic) Medical History: Medical History (Last Updated 03/16/18 @ 16:19 by Sandrita Jara) Asthma J45.909 Allergies No Known Allergies Allergy (Verified 03/16/18 16:17) Home Medications: Ambulatory Orders Medication Instructions Recorded Aspirin 81 mg PO QHS 07/02/17 Cholecalciferol (Vitamin D3) 4,000 unit PO LUNCH 07/02/17 [Vitamin D3] Levothyroxine [Synthroid] 50 mcg PO DAILY 07/02/17 Simvastatin [Zocor] 1 tab PO QHS 07/02/17 budesonide-formoterol HFA 160 1 puff INHALATION BID 03/16/18 mcg-4.5 mcg/actuation aerosol inhaler Ensure Enlive 120 ml PO 4X/DAY 03/30/18 Guaifenesin [Mucinex] 1,200 mg PO BID 03/30/18 Ipratropium/Albuterol Sulfate 3 ml INHALATION Q4HWA.RT 03/30/18 [Duoneb] Prednisone 10 mg PO UD 03/30/18 Tamsulosin HCl [Flomax] 0.4 mg PO DAILY@1730 03/30/18 levoFLOXacin tablet [Levaquin 500 mg PO DAILY@0600 03/30/18 tablet] Surgical History: hysterectomy Psychiatric History: No pertinent psych hx 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 Denies: Chills, Fever, Weight Change HEENT: Denies: Head Aches, Sinus Congestion, Sinus Drainage Cardiovascular: Denies: Chest Pain, Palpitations Respiratory: Denies: Cough, Shortness of breath at rest, Sputum production Gastrointestinal: Denies: Abdominal Pain, Nausea, Vomiting Genitourinary: Denies: Dysuria Musculoskeletal: Denies: Joint Pain, Joint Tenderness Skin: Denies: Rash, Wounds Neurological: Denies: Numbness, Tingling, Focal weakness Psychiatric: Denies: Anxiety, Depression, Homicidal Ideations, Suicidal Ideations Hematologic/ Lymphatic: Denies: Easy Bruising, Easy Bleeding VTE Information - Inpt Only VTE Present on Admission: No VTE Mechan Device Prophylaxis: Knee High FORTUNATO Hose VTE Pharm Prophylaxis ordered?: Yes Patient Problems: Active and Suspected Problems (Last Updated 03/16/18 @ 16:19 by Sandrita Jara) Fever (Acute) Urinary retention (Acute) Debility (Acute) - Physical Exam General: Alert, Oriented x3, Cooperative HEENT: Atraumatic, PERRLA, EOMI, Normocephalic Neck: Supple, No JVD, Negative Carotid Bruits Lungs: Clear to auscultation, Normal air movement Cardiovascular: Regular rate, No murmurs Abdomen: Bowel Sounds Present, Soft, Non Tender Extremities: No edema, Capillary Refill Less than 3 Seconds Skin: No rashes, No breakdown Musculoskeletal: No Tenderness to Palpation of Joints or Extremities Neurological: Cranial nerves II-XII grossly intact Psych/Mental Status: Normal Affect, Appropriate Vital Signs Temp Pulse Resp BP Pulse Ox 97.6 F L 80 18 142/75 H 94 03/30/18 16:55 03/30/18 20:10 03/30/18 20:10 03/30/18 16:55 03/30/18 20:10 Oxygen Delivery Method Room Air Weight: 59.421 kg Body Mass Index (BMI) 21.1 Intake and Output for Last 24 Hours 03/28/18 03/29/18 03/30/18 23:59 23:59 23:59 Intake Total 120 / 120 Balance 120 / 120 Assessment/Plan All Active Problems (Last Updated 03/16/18 @ 16:19 by Sandrita Jara) Chest pain (Acute) Acute bronchitis (Acute) Sepsis (Acute) Asthma exacerbation (Acute) Fever (Acute) Urinary retention (Acute) Debility (Acute) Bronchitis (Acute) 77 year old female with below past medical history hospitalized for chest pain, myocardial infarction ruled out, stress test as outpatient, complicated by sepsis secondary to acute bronchitis, admitted to TCU with debility, here for rehabilitation, strengthening, prior to discharge home with spouse. * Debility - PT/OT. * Pain - Tylenol 1000MG Q8H PRN mild pain. * Bowel - Miralax 17GM daily, Senna/colace 1 tablet BID, Dulcolax 10MG PO daily PRN. * Pneumonia vaccination - Administer Prevnar 13 and/or Pneumovax 23 as necessary. * DVT prophylaxis - Lovenox 40MG SC daily. * Chest pain - Aspirin 81MG daily, stress test as outpatient. * Hyperlipidemia - Atorvastatin 5MG QHS. * Vitamin D deficiency - D3 4000IU daily. * Nutrition - Ensure 120ML 4x/day. * COPD - Advair HFA 1 puff BID, Duoneb 3ML [id number], Prednisone 40MG daily thru 04/10/2018. * Bronchiectasis - Mucinex 1200MG BID, IS. * Bronchitis - Levaquin 500MG daily thru 04/03/2018. * Hypothyroidism - Levothyroxine 50MCG daily. * Urinary retention - Tamsulosin 0.4MG daily, montiel out, bladder scan surveillance, Dr. Bailon for follow-up.
[2018-03-31 05:50] LABS: Absolute Lymphocyte Count 1.91 X10^3/ul (0.83-4.51); Absolute Neutrophil Count 8.7 X10^3/uL (2.0-7.7); Basophil# 0.01 X10^3/uL; Basophil% 0.1 % (0-1); Hematocrit 36.3 % (37-47); Hemoglobin 12.2 g/dl (12.0-15.0); Lymphocyte # 1.91 X10^3/ul (4.0); Lymphocyte % 16.4 % (19-41); Mean Corp Hgb Conc 33.6 g/gl (32-36); Mean Corpuscular Hgb 28.2 pg (27.0-32.0); Mean Corpuscular Volume 83.8 fL (81-99); Mean Platelet Vol. 10.2 fl (6.2-12.0); Monocyte# 0.98 X10^3/uL; Monocyte% 8.4 % (0-10); Neutrophil # 8.69 X10^3/uL (2.7-7.7); Neutrophil % 74.7 % (47-70); Platelet Count 297 K/mm3 (150-450); RBC Distribution Width CV 14.4 % (11.6-14.6); RBC Distribution Width SD 43.2 fl (35.1-43.9); Red Blood Count 4.33 M/mm3 (4.2-5.4); White Blood Count 11.6 K/mm3 (4.4-11.0)
[2018-03-31 05:54] LABS: POSITIVE COUNT NO; POSITIVE DIFFERENTIAL NO; POSITIVE MORPHOLOGY NO
[2018-03-31 05:58] LABS: Anion Gap 9 (5-15); BUN 19 mg/dL (7-18); BUN/Creat Ratio 29.1 RATIO (10-20); Calcium,Total 8.6 mg/dL (8.5-10.1); Chloride 108 mmol/L (98-107); Creatinine, Serum 0.65 mg/dL (0.55-1.02); EST Glomerular Filtration Rate 93 mL/min (>60); Est Glom Filt Rate - Afr Amer 113 mL/min (>60); Glucose 109 mg/dL (74-106); Potassium 3.9 mmol/L (3.5-5.1); Sodium Level 142 mmol/L (136-145)
[2018-03-31] MEDS: Senna/Docusate Sodium 1 Tablet PO ×2 (06:03→17:22)
[2018-03-31] MEDS: Fluticasone/Salmeterol 232-14 Inhaler 1 PUFF IH ×2 (06:04→17:23)
[2018-03-31] MEDS: guaiFENesin 1,200 MG Tablet 1200 MG PO ×2 (06:04→17:22)
[2018-03-31] MEDS: levoFLOXacin 500 MG Tablet PO (06:04)
[2018-03-31] MEDS: Levothyroxine 50 MCG Tablet PO (06:04)
[2018-03-31] MEDS: Enoxaparin 40 MG/0.4 ML Syringe SC (06:04)
--- NOTE | 2018-03-31 08:05 | PCM.PN.RX ---
<Marino Galeas D - Last Filed: 03/31/18 08:05> Progress Note - Pharmacy Subjective: TCU Admission Objective: Allergies No Known Allergies Allergy (Verified 03/16/18 16:17) Current Medications Generic Name Dose Route Start Last Admin Trade Name Freq PRN Reason Stop Dose Admin Acetaminophen 1,000 mg 03/30/18 20:41 Tylenol PO Q8H PRN PRN MILD PAIN (1-3/10) Aspirin 81 mg 03/31/18 08:00 Aspirin, Baby PO DAILYCM [facility] Atorvastatin Calcium 5 mg 03/30/18 22:00 03/30/18 20:12 Lipitor PO 5 mg QHS [facility] Administration Bisacodyl 10 mg 03/30/18 17:19 Dulcolax PO DAILY PRN Constipation Cholecalciferol 4,000 unit 03/31/18 12:00 Vitamin D PO LUNCH [facility] Enoxaparin Sodium 40 mg 03/31/18 06:00 03/31/18 06:04 Lovenox SC 40 mg DAILY@0600 [facility] Administration Guaifenesin 1,200 mg 03/30/18 19:30 03/31/18 06:04 Mucinex PO 1,200 mg BID [facility]O Administration Levofloxacin 500 mg 03/31/18 06:00 03/31/18 06:04 Levaquin Tablet PO 04/03/18 06:01 500 mg DAILY@0600 [facility] Administration Levothyroxine Sodium 50 mcg 03/31/18 06:00 03/31/18 06:04 Synthroid PO 50 mcg DAILY RIGOBERTO Administration Nutritional Formula (Lactose Free) 120 ml 03/30/18 22:00 03/31/18 06:03 Ensure Enlive PO 120 ml 4X/DAY RIGOBERTO Administration Polyethylene Glycol 17 gm 03/31/18 06:00 03/31/18 06:10 Miralax PO Not Given DAILY [facility] Prednisone 40 mg 03/31/18 08:00 PO 04/10/18 07:59 DAILYCM [facility] Taper Fluticasone/Salmeterol 1 puff 03/31/18 06:00 03/31/18 06:04 Fluticasone-Salmeterol 232-14 IH 1 puff BID RIGOBERTO Administration Senna/Docusate Sodium 1 tablet 03/30/18 19:30 03/31/18 06:03 Senokot-S, Sarah-Colace PO 1 tablet BID RIGOBERTO Administration Tamsulosin HCl 0.4 mg 03/30/18 19:30 03/30/18 20:12 Flomax PO 0.4 mg DAILY@1730 [facility] Administration Tuberculin PPD 5 tu 03/31/18 10:00 Tubersol, Aplisol, Ppd ID 03/31/18 10:01 X1 ONE Tuberculin PPD 5 tu 04/07/18 10:00 Tubersol, Aplisol, Ppd ID 04/07/18 10:01 X1 ONE Problem List (Last Updated 03/16/18 @ 16:19 by Sandrita Jara) Fever (Acute) Pulmonary nodules (Chronic) Urinary retention (Acute) Debility (Acute) Hyperlipidemia (Chronic) Vitamin D deficiency (Chronic) Vital Signs Temp Pulse Resp BP Pulse Ox 97.6 F L 82 18 142/75 H 94 03/30/18 16:55 03/30/18 20:17 03/30/18 20:10 03/30/18 16:55 03/30/18 20:17 Oxygen Delivery Method Room Air Weight: 59.421 kg Body Mass Index (BMI) 21.1 Sodium 142 mmol/L (136-145) 03/31/18 05:37 Potassium 3.9 mmol/L (3.5-5.1) 03/31/18 05:37 Chloride 108 mmol/L (98-107) H 03/31/18 05:37 Carbon Dioxide 25.0 mmol/L (21.0-32.0) 03/31/18 05:37 Anion Gap 9 (5-15) 03/31/18 05:37 BUN 19 mg/dL (7-18) H 03/31/18 05:37 Creatinine 0.65 mg/dL (0.55-1.02) 03/31/18 05:37 Est GFR (MDRD) Af Amer 113 mL/min (>60) 03/31/18 05:37 Est GFR (MDRD) Non-Af 93 mL/min (>60) 03/31/18 05:37 BUN/Creatinine Ratio 29.1 RATIO (10-20) H 03/31/18 05:37 Glucose 109 mg/dL (74-106) H 03/31/18 05:37 Assessment/Plan: 1) Pain APAP for mild pain. Continue to monitor daily pain scores, prn medication use. 2) Pulm Abbiesin, Advair inh, prednisone taper, levofloxacin until 04/03. Continue to monitor s/s infection, for shortness of breath. 3) Chest Pain/HLD ASA, atorvastatin. Pending stress test as outp. Continue to monitor lipids, for chest pain. 4) Hypothyroidism Levothyroxine daily. Continue to monitor s/s hyper/hypothyroidism. 5) BPH Tamsulosin daily. Continue to monitor for sxs. 6) DVT PPx Enoxaparin daily. Continue to monitor s/s bleeding/clot. 7) Nutrition Ensure, D. Continue to monitor clinically. Psychotropic Medications: None Unnecessary Medications: None Bowel Regimen: 8) Senna/s, PEG, prn bisacodyl. Continue to monitor prn medication use, for constipation/diarrhea. Date of Note:: 03/31/18 - Provider Comments Provider responsibility: Provider responsible to enter orders to implement recommendations <Van Lee Chi - Last Filed: 03/31/18 08:11> Progress Note - Pharmacy Subjective: [] Objective: Allergies No Known Allergies Allergy (Verified 03/16/18 16:17) Current Medications Generic Name Dose Route Start Last Admin Trade Name Freq PRN Reason Stop Dose Admin Acetaminophen 1,000 mg 03/30/18 20:41 Tylenol PO Q8H PRN PRN MILD PAIN (1-3/10) Aspirin 81 mg 03/31/18 08:00 Aspirin, Baby PO DAILYCM [facility] Atorvastatin Calcium 5 mg 03/30/18 22:00 03/30/18 20:12 Lipitor PO 5 mg QHS [facility] Administration Bisacodyl 10 mg 03/30/18 17:19 Dulcolax PO DAILY PRN Constipation Cholecalciferol 4,000 unit 03/31/18 12:00 Vitamin D PO LUNCH [facility] Enoxaparin Sodium 40 mg 03/31/18 06:00 03/31/18 06:04 Lovenox SC 40 mg DAILY@0600 [facility] Administration Guaifenesin 1,200 mg 03/30/18 19:30 03/31/18 06:04 Mucinex PO 1,200 mg BID RIGOBERTO Administration Levofloxacin 500 mg 03/31/18 06:00 03/31/18 06:04 Levaquin Tablet PO 04/03/18 06:01 500 mg DAILY@0600 [facility] Administration Levothyroxine Sodium 50 mcg 03/31/18 06:00 03/31/18 06:04 Synthroid PO 50 mcg DAILY RIGOBERTO Administration Nutritional Formula (Lactose Free) 120 ml 03/30/18 22:00 03/31/18 06:03 Ensure Enlive PO 120 ml 4X/DAY RIGOBERTO Administration Polyethylene Glycol 17 gm 03/31/18 06:00 03/31/18 06:10 Miralax PO Not Given DAILY [facility] Prednisone 40 mg 03/31/18 08:00 PO 04/10/18 07:59 DAILYCM [facility] Taper Fluticasone/Salmeterol 1 puff 03/31/18 06:00 03/31/18 06:04 Fluticasone-Salmeterol 232-14 IH 1 puff BID RIGOBERTO Administration Senna/Docusate Sodium 1 tablet 03/30/18 19:30 03/31/18 06:03 Senokot-S, Sarah-Colace PO 1 tablet BID RIGOBERTO Administration Tamsulosin HCl 0.4 mg 03/30/18 19:30 03/30/18 20:12 Flomax PO 0.4 mg DAILY@1730 [facility] Administration Tuberculin PPD 5 tu 03/31/18 10:00 Tubersol, Aplisol, Ppd ID 03/31/18 10:01 X1 ONE Tuberculin PPD 5 tu 04/07/18 10:00 Tubersol, Aplisol, Ppd ID 04/07/18 10:01 X1 ONE Problem List (Last Updated 03/16/18 @ 16:19 by Sandrita Jara) Fever (Acute) Pulmonary nodules (Chronic) Urinary retention (Acute) Debility (Acute) Hyperlipidemia (Chronic) Vitamin D deficiency (Chronic) Vital Signs Temp Pulse Resp BP Pulse Ox 97.6 F L 82 18 142/75 H 94 03/30/18 16:55 03/30/18 20:17 03/30/18 20:10 03/30/18 16:55 03/30/18 20:17 Oxygen Delivery Method Room Air Weight: 59.421 kg Body Mass Index (BMI) 21.1 Sodium 142 mmol/L (136-145) 03/31/18 05:37 Potassium 3.9 mmol/L (3.5-5.1) 03/31/18 05:37 Chloride 108 mmol/L (98-107) H 03/31/18 05:37 Carbon Dioxide 25.0 mmol/L (21.0-32.0) 03/31/18 05:37 Anion Gap 9 (5-15) 03/31/18 05:37 BUN 19 mg/dL (7-18) H 03/31/18 05:37 Creatinine 0.65 mg/dL (0.55-1.02) 03/31/18 05:37 Est GFR (MDRD) Af Amer 113 mL/min (>60) 03/31/18 05:37 Est GFR (MDRD) Non-Af 93 mL/min (>60) 03/31/18 05:37 BUN/Creatinine Ratio 29.1 RATIO (10-20) H 03/31/18 05:37 Glucose 109 mg/dL (74-106) H 03/31/18 05:37 Assessment/Plan: Psychotropic Medications: Unnecessary Medications: Bowel Regimen: - Provider Comments Provider responsibility: Provider responsible to enter orders to implement recommendations Provider Comments to Recommendations by Pharmacy: Agree
--- NOTE | 2018-03-31 08:09 | PHA.CONS_ITS ---
<Marino Galeas D - Last Filed: 03/31/18 08:05> Progress Note - Pharmacy Subjective: TCU Admission Objective: Allergies No Known Allergies Allergy (Verified 03/16/18 16:17) Current Medications Generic Name Dose Route Start Last Admin Trade Name Freq PRN Reason Stop Dose Admin Acetaminophen 1,000 mg 03/30/18 20:41 Tylenol PO Q8H PRN PRN MILD PAIN (1-3/10) Aspirin 81 mg 03/31/18 08:00 Aspirin, Baby PO DAILYCM [facility] Atorvastatin Calcium 5 mg 03/30/18 22:00 03/30/18 20:12 Lipitor PO 5 mg QHS [facility] Administration Bisacodyl 10 mg 03/30/18 17:19 Dulcolax PO DAILY PRN Constipation Cholecalciferol 4,000 unit 03/31/18 12:00 Vitamin D PO LUNCH [facility] Enoxaparin Sodium 40 mg 03/31/18 06:00 03/31/18 06:04 Lovenox SC 40 mg DAILY@0600 [facility] Administration Guaifenesin 1,200 mg 03/30/18 19:30 03/31/18 06:04 Mucinex PO 1,200 mg BID RIGOBERTO Administration Levofloxacin 500 mg 03/31/18 06:00 03/31/18 06:04 Levaquin Tablet PO 04/03/18 06:01 500 mg DAILY@0600 [facility] Administration Levothyroxine Sodium 50 mcg 03/31/18 06:00 03/31/18 06:04 Synthroid PO 50 mcg DAILY RIGOBERTO Administration Nutritional Formula (Lactose Free) 120 ml 03/30/18 22:00 03/31/18 06:03 Ensure Enlive PO 120 ml 4X/DAY RIGOBERTO Administration Polyethylene Glycol 17 gm 03/31/18 06:00 03/31/18 06:10 Miralax PO Not Given DAILY [facility] Prednisone 40 mg 03/31/18 08:00 PO 04/10/18 07:59 DAILYCM [facility] Taper Fluticasone/Salmeterol 1 puff 03/31/18 06:00 03/31/18 06:04 Fluticasone-Salmeterol 232-14 IH 1 puff BID RIGOBERTO Administration Senna/Docusate Sodium 1 tablet 03/30/18 19:30 03/31/18 06:03 Senokot-S, Sarah-Colace PO 1 tablet BID RIGOBERTO Administration Tamsulosin HCl 0.4 mg 03/30/18 19:30 03/30/18 20:12 Flomax PO 0.4 mg DAILY@1730 RIGOBERTO Administration Tuberculin PPD 5 tu 03/31/18 10:00 Tubersol, Aplisol, Ppd ID 03/31/18 10:01 X1 ONE Tuberculin PPD 5 tu 04/07/18 10:00 Tubersol, Aplisol, Ppd ID 04/07/18 10:01 X1 ONE Problem List (Last Updated 03/16/18 @ 16:19 by Sandrita Jara) Fever (Acute) Pulmonary nodules (Chronic) Urinary retention (Acute) Debility (Acute) Hyperlipidemia (Chronic) Vitamin D deficiency (Chronic) Vital Signs Temp Pulse Resp BP Pulse Ox 97.6 F L 82 18 142/75 H 94 03/30/18 16:55 03/30/18 20:17 03/30/18 20:10 03/30/18 16:55 03/30/18 20:17 Oxygen Delivery Method Room Air Weight: 59.421 kg Body Mass Index (BMI) 21.1 Sodium 142 mmol/L (136-145) 03/31/18 05:37 Potassium 3.9 mmol/L (3.5-5.1) 03/31/18 05:37 Chloride 108 mmol/L (98-107) H 03/31/18 05:37 Carbon Dioxide 25.0 mmol/L (21.0-32.0) 03/31/18 05:37 Anion Gap 9 (5-15) 03/31/18 05:37 BUN 19 mg/dL (7-18) H 03/31/18 05:37 Creatinine 0.65 mg/dL (0.55-1.02) 03/31/18 05:37 Est GFR (MDRD) Af Amer 113 mL/min (>60) 03/31/18 05:37 Est GFR (MDRD) Non-Af 93 mL/min (>60) 03/31/18 05:37 BUN/Creatinine Ratio 29.1 RATIO (10-20) H 03/31/18 05:37 Glucose 109 mg/dL (74-106) H 03/31/18 05:37 Assessment/Plan: 1) Pain APAP for mild pain. Continue to monitor daily pain scores, prn medication use. 2) Pulm Abbiesin, Advair inh, prednisone taper, levofloxacin until 04/03. Continue to monitor s/s infection, for shortness of breath. 3) Chest Pain/HLD ASA, atorvastatin. Pending stress test as outp. Continue to monitor lipids, for chest pain. 4) Hypothyroidism Levothyroxine daily. Continue to monitor s/s hyper/hypothyroidism. 5) BPH Tamsulosin daily. Continue to monitor for sxs. 6) DVT PPx Enoxaparin daily. Continue to monitor s/s bleeding/clot. 7) Nutrition Ensure, D. Continue to monitor clinically. Psychotropic Medications: None Unnecessary Medications: None Bowel Regimen: 8) Senna/s, PEG, prn bisacodyl. Continue to monitor prn medication use, for constipation/diarrhea. Date of Note:: 03/31/18 - Provider Comments Provider responsibility: Provider responsible to enter orders to implement recommendations <Van Lee Chi - Last Filed: 03/31/18 08:11> Progress Note - Pharmacy Subjective: [] Objective: Allergies No Known Allergies Allergy (Verified 03/16/18 16:17) Current Medications Generic Name Dose Route Start Last Admin Trade Name Freq PRN Reason Stop Dose Admin Acetaminophen 1,000 mg 03/30/18 20:41 Tylenol PO Q8H PRN PRN MILD PAIN (1-3/10) Aspirin 81 mg 03/31/18 08:00 Aspirin, Baby PO DAILYCM [facility] Atorvastatin Calcium 5 mg 03/30/18 22:00 03/30/18 20:12 Lipitor PO 5 mg QHS [facility] Administration Bisacodyl 10 mg 03/30/18 17:19 Dulcolax PO DAILY PRN Constipation Cholecalciferol 4,000 unit 03/31/18 12:00 Vitamin D PO LUNCH R[facility]OBERTO Enoxaparin Sodium 40 mg 03/31/18 06:00 03/31/18 06:04 Lovenox SC 40 mg DAILY@0600 [facility] Administration Guaifenesin 1,200 mg 03/30/18 19:30 03/31/18 06:04 Mucinex PO 1,200 mg BID RIGOBERTO Administration Levofloxacin 500 mg 03/31/18 06:00 03/31/18 06:04 Levaquin Tablet PO 04/03/18 06:01 500 mg DAILY@0600 [facility] Administration Levothyroxine Sodium 50 mcg 03/31/18 06:00 03/31/18 06:04 Synthroid PO 50 mcg DAILY RIGOBERTO Administration Nutritional Formula (Lactose Free) 120 ml 03/30/18 22:00 03/31/18 06:03 Ensure Enlive PO 120 ml 4X/DAY RIGOBERTO Administration Polyethylene Glycol 17 gm 03/31/18 06:00 03/31/18 06:10 Miralax PO Not Given DAILY [facility]O Prednisone 40 mg 03/31/18 08:00 PO 04/10/18 07:59 DAILYCM [facility] Taper Fluticasone/Salmeterol 1 puff 03/31/18 06:00 03/31/18 06:04 Fluticasone-Salmeterol 232-14 IH 1 puff BID RIGOBERTO Administration Senna/Docusate Sodium 1 tablet 03/30/18 19:30 03/31/18 06:03 Senokot-S, Sarah-Colace PO 1 tablet BID RIGOBERTO Administration Tamsulosin HCl 0.4 mg 03/30/18 19:30 03/30/18 20:12 Flomax PO 0.4 mg DAILY@1730 RIGOBERTO Administration Tuberculin PPD 5 tu 03/31/18 10:00 Tubersol, Aplisol, Ppd ID 03/31/18 10:01 X1 ONE Tuberculin PPD 5 tu 04/07/18 10:00 Tubersol, Aplisol, Ppd ID 04/07/18 10:01 X1 ONE Problem List (Last Updated 03/16/18 @ 16:19 by Sandrita Jara) Fever (Acute) Pulmonary nodules (Chronic) Urinary retention (Acute) Debility (Acute) Hyperlipidemia (Chronic) Vitamin D deficiency (Chronic) Vital Signs Temp Pulse Resp BP Pulse Ox 97.6 F L 82 18 142/75 H 94 03/30/18 16:55 03/30/18 20:17 03/30/18 20:10 03/30/18 16:55 03/30/18 20:17 Oxygen Delivery Method Room Air Weight: 59.421 kg Body Mass Index (BMI) 21.1 Sodium 142 mmol/L (136-145) 03/31/18 05:37 Potassium 3.9 mmol/L (3.5-5.1) 03/31/18 05:37 Chloride 108 mmol/L (98-107) H 03/31/18 05:37 Carbon Dioxide 25.0 mmol/L (21.0-32.0) 03/31/18 05:37 Anion Gap 9 (5-15) 03/31/18 05:37 BUN 19 mg/dL (7-18) H 03/31/18 05:37 Creatinine 0.65 mg/dL (0.55-1.02) 03/31/18 05:37 Est GFR (MDRD) Af Amer 113 mL/min (>60) 03/31/18 05:37 Est GFR (MDRD) Non-Af 93 mL/min (>60) 03/31/18 05:37 BUN/Creatinine Ratio 29.1 RATIO (10-20) H 03/31/18 05:37 Glucose 109 mg/dL (74-106) H 03/31/18 05:37 Assessment/Plan: Psychotropic Medications: Unnecessary Medications: Bowel Regimen: - Provider Comments Provider responsibility: Provider responsible to enter orders to implement recommendations Provider Comments to Recommendations by Pharmacy: Agree
[2018-03-31 08:12] VITALS: BP 185/97; PULSE 56; RESP 18; TEMP 36.5; O2SAT 97
[2018-03-31] MEDS: Aspirin 81 MG TAB.CHEW PO (08:14)
[2018-03-31] MEDS: predniSONE 10 MG Tablet 30 MG PO (08:14)
[2018-03-31 09:00] VITALS: BP 103/63; BP 176/76; BP 78/39; PULSE 52; PULSE 62; PULSE 75
[2018-03-31 09:15] VITALS: BP 152/75; PULSE 45
--- NOTE | 2018-03-31 09:19 | NURSING ---
report called to shirley in ed at this time. pt going to ed in bed
[2018-03-31] MEDS: Tuberculin,Purif.prot.deriv. 50 TU/ML Vial 5 ML ID (15:02)
[2018-03-31 15:11] VITALS: BP 161/70; PULSE 65; RESP 18; TEMP 36.6; O2SAT 95
--- NOTE | 2018-03-31 15:19 | NURSING ---
R' BACK FROM ED. RESTING IN BED WITH AND DAUGHTER AT SIDE. VS-97.8, 95%RA, 161/70, HR 56 APICALLY. HR REGULAR. DENIES CP OR DIZZINESS AT THIS TIME. STILL C/O LIGHT-HEADEDNESS AND FEELINGS OF WEAKNESS. DENIES VISUAL CHANGES. STATED VOIDED FOUR TIMES WHILE IN ED, THE LAST ABOUT A HALF HOUR AGO. BLADDER SCANNED AT THIS TIME FOR 332CC. WILL MONITOR. WILL MONITOR. STATES HAS ON/OFF HEADACHES. NONE AT THIS TIME.
[2018-03-31] MEDS: Tamsulosin HCl 0.4 MG Capsule PO (17:22)
[2018-03-31] MEDS: Menthol/Lanolin/Calamine/Znox 113 GM Tube 1 APPLIC TOPICAL (20:22)
[2018-03-31] MEDS: Atorvastatin Calcium 10 MG Tablet 5 MG PO (20:22)
[2018-04-01] MEDS: Enoxaparin 40 MG/0.4 ML Syringe SC (06:49)
[2018-04-01] MEDS: Levothyroxine 50 MCG Tablet PO (06:49)
[2018-04-01] MEDS: levoFLOXacin 500 MG Tablet PO (06:49)
[2018-04-01] MEDS: Fluticasone/Salmeterol 232-14 Inhaler 1 PUFF IH ×2 (06:50→20:07)
[2018-04-01] MEDS: Menthol/Lanolin/Calamine/Znox 113 GM Tube 1 APPLIC TOPICAL ×3 (06:50→20:08)
[2018-04-01] MEDS: guaiFENesin 1,200 MG Tablet 1200 MG PO ×2 (08:46→20:08)
[2018-04-01] MEDS: Aspirin 81 MG TAB.CHEW PO (08:46)
[2018-04-01 15:58] VITALS: BP 137/62; PULSE 66; RESP 20; TEMP 35.8; O2SAT 97
[2018-04-01] MEDS: 0.9% Saline Lock 10 ML Syringe IV (16:28)
[2018-04-01] MEDS: Tamsulosin HCl 0.4 MG Capsule PO (16:28)
[2018-04-01] MEDS: Atorvastatin Calcium 10 MG Tablet 5 MG PO (20:09)
[2018-04-02] MEDS: levoFLOXacin 500 MG Tablet PO (06:16)
[2018-04-02] MEDS: Menthol/Lanolin/Calamine/Znox 113 GM Tube 1 APPLIC TOPICAL ×3 (06:16→20:15)
[2018-04-02] MEDS: Levothyroxine 50 MCG Tablet PO (06:16)
[2018-04-02] MEDS: 0.9% Saline Lock 10 ML Syringe IV ×2 (06:19→17:03)
[2018-04-02] MEDS: Aspirin 81 MG TAB.CHEW PO (09:41)
[2018-04-02] MEDS: Polyethylene Glycol 3350 17 GM PACKET PO (09:41)
[2018-04-02] MEDS: guaiFENesin 1,200 MG Tablet 1200 MG PO ×2 (09:41→20:15)
[2018-04-02] MEDS: Senna/Docusate Sodium 1 Tablet PO ×2 (09:41→20:15)
[2018-04-02] MEDS: Fluticasone/Salmeterol 232-14 Inhaler 1 PUFF IH ×2 (09:42→20:15)
[2018-04-02] MEDS: Enoxaparin 40 MG/0.4 ML Syringe SC (09:42)
[2018-04-02 15:48] VITALS: BP 118/59; PULSE 66; RESP 18; TEMP 36.2; O2SAT 98
[2018-04-02] MEDS: Tamsulosin HCl 0.4 MG Capsule PO (17:03)
[2018-04-02] MEDS: Atorvastatin Calcium 10 MG Tablet 5 MG PO (20:16)
[2018-04-02 21:00] VITALS: PULSE 67; O2SAT 98
[2018-04-03] MEDS: Menthol/Lanolin/Calamine/Znox 113 GM Tube 1 APPLIC TOPICAL ×3 (05:21→19:46)
[2018-04-03] MEDS: Levothyroxine 50 MCG Tablet PO (05:21)
[2018-04-03] MEDS: levoFLOXacin 500 MG Tablet PO (05:21)
[2018-04-03] MEDS: 0.9% Saline Lock 10 ML Syringe IV ×2 (05:24→10:25)
[2018-04-03] MEDS: Fluticasone/Salmeterol 232-14 Inhaler 1 PUFF IH ×2 (09:02→19:45)
[2018-04-03] MEDS: Enoxaparin 40 MG/0.4 ML Syringe SC (09:02)
[2018-04-03] MEDS: Senna/Docusate Sodium 1 Tablet PO ×2 (09:03→19:42)
[2018-04-03] MEDS: Polyethylene Glycol 3350 17 GM PACKET PO (09:03)
[2018-04-03] MEDS: guaiFENesin 1,200 MG Tablet 1200 MG PO ×2 (09:03→19:42)
[2018-04-03] MEDS: Aspirin 81 MG TAB.CHEW PO (09:04)
[2018-04-03 15:31] VITALS: BP 120/75; PULSE 81; RESP 16; TEMP 36.5; O2SAT 98
[2018-04-03] MEDS: Tamsulosin HCl 0.4 MG Capsule PO (16:22)
[2018-04-03] MEDS: Atorvastatin Calcium 10 MG Tablet 5 MG PO (19:42)
[2018-04-04] MEDS: Levothyroxine 50 MCG Tablet PO (05:19)
[2018-04-04] MEDS: Menthol/Lanolin/Calamine/Znox 113 GM Tube 1 APPLIC TOPICAL ×3 (05:20→20:12)
[2018-04-04] MEDS: Polyethylene Glycol 3350 17 GM PACKET PO (07:43)
[2018-04-04] MEDS: Aspirin 81 MG TAB.CHEW PO (07:43)
[2018-04-04] MEDS: Senna/Docusate Sodium 1 Tablet PO ×2 (07:43→20:09)
[2018-04-04] MEDS: guaiFENesin 1,200 MG Tablet 1200 MG PO ×2 (07:43→20:09)
[2018-04-04] MEDS: Fluticasone/Salmeterol 232-14 Inhaler 1 PUFF IH ×2 (07:43→20:09)
[2018-04-04] MEDS: Enoxaparin 40 MG/0.4 ML Syringe SC (07:43)
[2018-04-04 15:25] VITALS: BP 112/64; PULSE 67; RESP 18; TEMP 36.8; O2SAT 97
[2018-04-04] MEDS: Tamsulosin HCl 0.4 MG Capsule PO (17:02)
--- NOTE | 2018-04-04 17:50 | NURSING ---
pt c/o rt ear feeling clogged & lightheadedness with therapy. Dr Lee notified, he assessed ear canals. NO wax noted. wants pt to drink more water.
[2018-04-04] MEDS: Atorvastatin Calcium 10 MG Tablet 5 MG PO (20:09)
--- NOTE | 2018-04-04 21:08 | PCM.TCUNOT ---
Subjective: Resident seen in room, lying in bed. She c/o right ear feeling clogged, and feeling lightheaded at times, especially during therapy. Vitals/I&O's: Vital Signs Temp Pulse Resp BP Pulse Ox 98.3 F 67 18 112/64 97 04/04/18 15:25 04/04/18 15:25 04/04/18 15:25 04/04/18 15:25 04/04/18 15:25 Oxygen Delivery Method Room Air Weight: 59.421 kg Body Mass Index (BMI) 21.1 Intake and Output for Last 24 Hours 04/02/18 04/03/18 04/04/18 23:59 23:59 23:59 Intake Total 480 / 480 520 / 520 360 / 360 Balance 480 / 480 520 / 520 360 / 360 Past Medical History Past Medical History (Chronic Problems): Chronic Problems (Last Updated 03/16/18 @ 16:19 by Sandrita Jara) Hypothyroidism (Chronic) COPD (chronic obstructive pulmonary disease) (Chronic) Bronchiectasis (Chronic) Pulmonary nodules (Chronic) Hyperlipidemia (Chronic) Vitamin D deficiency (Chronic) Medical History: Medical History (Last Updated 03/16/18 @ 16:19 by Sandrita Jara) Asthma J45.909 Allergies No Known Allergies Allergy (Verified 03/31/18 10:24) Home Medications: Ambulatory Orders Medication Instructions Recorded Aspirin 81 mg PO QHS 07/02/17 Cholecalciferol (Vitamin D3) 4,000 unit PO LUNCH 07/02/17 [Vitamin D3] Levothyroxine [Synthroid] 50 mcg PO DAILY 07/02/17 Simvastatin [Zocor] 1 tab PO QHS 07/02/17 budesonide-formoterol HFA 160 1 puff INHALATION BID 03/16/18 mcg-4.5 mcg/actuation aerosol inhaler Ensure Enlive 120 ml PO 4X/DAY 03/30/18 Guaifenesin [Mucinex] 1,200 mg PO BID 03/30/18 Prednisone 10 mg PO UD 03/30/18 Tamsulosin HCl [Flomax] 0.4 mg PO DAILY@1730 03/30/18 levoFLOXacin tablet [Levaquin 500 mg PO DAILY@0600 03/30/18 tablet] Surgical History: hysterectomy Psychiatric History: No pertinent psych hx SOCIAL MEDIA DESIGNER 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 Denies: Head Aches, Sinus Congestion, Sinus Drainage Cardiovascular: Reports: Light Headedness. Denies: Chest Pain, Palpitations Respiratory: Denies: Cough, Shortness of breath at rest, Sputum production Gastrointestinal: Denies: Abdominal Pain, Nausea, Vomiting Genitourinary: Denies: Dysuria Musculoskeletal: Denies: Joint Pain, Joint Tenderness Skin: Denies: Rash, Wounds Neurological: Denies: Numbness, Tingling, Focal weakness Psychiatric: Denies: Anxiety, Depression, Homicidal Ideations, Suicidal Ideations Hematologic/ Lymphatic: Denies: Easy Bruising, Easy Bleeding Patient Problems: Active and Suspected Problems (Last Updated 03/16/18 @ 16:19 by Sandrita Jara) Fever (Acute) Urinary retention (Acute) Debility (Acute) - Physical Exam General: Alert, Oriented x3, Cooperative HEENT: Atraumatic, PERRLA, EOMI, Normocephalic Neck: Supple, No JVD, Negative Carotid Bruits Lungs: Clear to auscultation, Normal air movement Cardiovascular: Regular rate, No murmurs Abdomen: Bowel Sounds Present, Soft, Non Tender Extremities: No edema, Capillary Refill Less than 3 Seconds Skin: No rashes, No breakdown Musculoskeletal: No Tenderness to Palpation of Joints or Extremities Neurological: Cranial nerves II-XII grossly intact Psych/Mental Status: Normal Affect, Appropriate Vital Signs Temp Pulse Resp BP Pulse Ox 98.3 F 67 18 112/64 97 04/04/18 15:25 04/04/18 15:25 04/04/18 15:25 04/04/18 15:25 04/04/18 15:25 Oxygen Delivery Method Room Air Weight: 59.421 kg Body Mass Index (BMI) 21.1 Intake and Output for Last 24 Hours 04/02/18 04/03/18 04/04/18 23:59 23:59 23:59 Intake Total 480 / 480 520 / 520 360 / 360 Balance 480 / 480 520 / 520 360 / 360 Assessment/Plan All Active Problems (Last Updated 03/16/18 @ 16:19 by Sandrita Jara) Chest pain (Acute) Acute bronchitis (Acute) Sepsis (Acute) Asthma exacerbation (Acute) Fever (Acute) Urinary retention (Acute) Debility (Acute) Bronchitis (Acute) 77 year old female with below past medical history hospitalized for chest pain, myocardial infarction ruled out, stress test as outpatient, complicated by sepsis secondary to acute bronchitis, admitted to TCU with debility, here for rehabilitation, strengthening, prior to discharge home with spouse. Ear clogged - Ear exam normal, no signs of cerumen. Lightheaded - Recommended increasing fluid intake. Urinary retention - Tamsulosin 0.4MG daily, able to void, consider stopping Tamsulosin 0.4MG daily, when more mobile, maybe contributing to her lightheadedness.
--- NOTE | 2018-04-04 21:13 | PN_ITS ---
Subjective: Resident seen in room, lying in bed. She c/o right ear feeling clogged, and feeling lightheaded at times, especially during therapy. Vitals/I&O's: Vital Signs Temp Pulse Resp BP Pulse Ox 98.3 F 67 18 112/64 97 04/04/18 15:25 04/04/18 15:25 04/04/18 15:25 04/04/18 15:25 04/04/18 15:25 Oxygen Delivery Method Room Air Weight: 59.421 kg Body Mass Index (BMI) 21.1 Intake and Output for Last 24 Hours 04/02/18 04/03/18 04/04/18 23:59 23:59 23:59 Intake Total 480 / 480 520 / 520 360 / 360 Balance 480 / 480 520 / 520 360 / 360 Past Medical History Past Medical History (Chronic Problems): Chronic Problems (Last Updated 03/16/18 @ 16:19 by Sandrita Jara) Hypothyroidism (Chronic) COPD (chronic obstructive pulmonary disease) (Chronic) Bronchiectasis (Chronic) Pulmonary nodules (Chronic) Hyperlipidemia (Chronic) Vitamin D deficiency (Chronic) Medical History: Medical History (Last Updated 03/16/18 @ 16:19 by Sandrita Jara) Asthma J45.909 Allergies No Known Allergies Allergy (Verified 03/31/18 10:24) Home Medications: Ambulatory Orders Medication Instructions Recorded Aspirin 81 mg PO QHS 07/02/17 Cholecalciferol (Vitamin D3) 4,000 unit PO LUNCH 07/02/17 [Vitamin D3] Levothyroxine [Synthroid] 50 mcg PO DAILY 07/02/17 Simvastatin [Zocor] 1 tab PO QHS 07/02/17 budesonide-formoterol HFA 160 1 puff INHALATION BID 03/16/18 mcg-4.5 mcg/actuation aerosol inhaler Ensure Enlive 120 ml PO 4X/DAY 03/30/18 Guaifenesin [Mucinex] 1,200 mg PO BID 03/30/18 Prednisone 10 mg PO UD 03/30/18 Tamsulosin HCl [Flomax] 0.4 mg PO DAILY@1730 03/30/18 levoFLOXacin tablet [Levaquin 500 mg PO DAILY@0600 03/30/18 tablet] Surgical History: hysterectomy Psychiatric History: No pertinent psych hx GAME MASTER History: No pertinent GAME MASTER history Lives: Spouse/ Significant Other Smoking Status: Never smoker Tobacco Use: Non-smoker Alcohol: None Drugs: None - *Family History Maternal History Items: No pertinent history Paternal History Items: No pertinent history Review of Systems Constitutional: Denies: Chills, Fever, Weight Change HEENT: Reports: - - Ear plugged.. Denies: Head Aches, Sinus Congestion, Sinus Drainage Cardiovascular: Reports: Light Headedness. Denies: Chest Pain, Palpitations Respiratory: Denies: Cough, Shortness of breath at rest, Sputum production Gastrointestinal: Denies: Abdominal Pain, Nausea, Vomiting Genitourinary: Denies: Dysuria Musculoskeletal: Denies: Joint Pain, Joint Tenderness Skin: Denies: Rash, Wounds Neurological: Denies: Numbness, Tingling, Focal weakness Psychiatric: Denies: Anxiety, Depression, Homicidal Ideations, Suicidal Ideations Hematologic/ Lymphatic: Denies: Easy Bruising, Easy Bleeding Patient Problems: Active and Suspected Problems (Last Updated 03/16/18 @ 16:19 by Sandrita Jara) Fever (Acute) Urinary retention (Acute) Debility (Acute) - Physical Exam General: Alert, Oriented x3, Cooperative HEENT: Atraumatic, PERRLA, EOMI, Normocephalic Neck: Supple, No JVD, Negative Carotid Bruits Lungs: Clear to auscultation, Normal air movement Cardiovascular: Regular rate, No murmurs Abdomen: Bowel Sounds Present, Soft, Non Tender Extremities: No edema, Capillary Refill Less than 3 Seconds Skin: No rashes, No breakdown Musculoskeletal: No Tenderness to Palpation of Joints or Extremities Neurological: Cranial nerves II-XII grossly intact Psych/Mental Status: Normal Affect, Appropriate Vital Signs Temp Pulse Resp BP Pulse Ox 98.3 F 67 18 112/64 97 04/04/18 15:25 04/04/18 15:25 04/04/18 15:25 04/04/18 15:25 04/04/18 15:25 Oxygen Delivery Method Room Air Weight: 59.421 kg Body Mass Index (BMI) 21.1 Intake and Output for Last 24 Hours 04/02/18 04/03/18 04/04/18 23:59 23:59 23:59 Intake Total 480 / 480 520 / 520 360 / 360 Balance 480 / 480 520 / 520 360 / 360 Assessment/Plan All Active Problems (Last Updated 03/16/18 @ 16:19 by Sandrita Jara) Chest pain (Acute) Acute bronchitis (Acute) Sepsis (Acute) Asthma exacerbation (Acute) Fever (Acute) Urinary retention (Acute) Debility (Acute) Bronchitis (Acute) 77 year old female with below past medical history hospitalized for chest pain, myocardial infarction ruled out, stress test as outpatient, complicated by sepsis secondary to acute bronchitis, admitted to TCU with debility, here for rehabilitation, strengthening, prior to discharge home with spouse. * Ear clogged - Ear exam normal, no signs of cerumen. * Lightheaded - Recommended increasing fluid intake. * Urinary retention - Tamsulosin 0.4MG daily, able to void, consider stopping Tamsulosin 0.4MG daily, when more mobile, maybe contributing to her lightheadedness.
[2018-04-05] MEDS: Levothyroxine 50 MCG Tablet PO (06:10)
[2018-04-05] MEDS: Menthol/Lanolin/Calamine/Znox 113 GM Tube 1 APPLIC TOPICAL ×3 (06:11→20:19)
[2018-04-05] MEDS: Senna/Docusate Sodium 1 Tablet PO ×2 (08:39→20:19)
[2018-04-05] MEDS: guaiFENesin 1,200 MG Tablet 1200 MG PO (08:39)
[2018-04-05] MEDS: Polyethylene Glycol 3350 17 GM PACKET PO (08:39)
[2018-04-05] MEDS: Enoxaparin 40 MG/0.4 ML Syringe SC (08:39)
[2018-04-05] MEDS: Aspirin 81 MG TAB.CHEW PO (08:39)
[2018-04-05] MEDS: Fluticasone/Salmeterol 232-14 Inhaler 1 PUFF IH ×2 (08:40→20:18)
[2018-04-05 15:26] VITALS: BP 139/83; PULSE 86; RESP 18; TEMP 35.9; O2SAT 97
[2018-04-05] MEDS: Tamsulosin HCl 0.4 MG Capsule PO (18:00)
[2018-04-05] MEDS: Atorvastatin Calcium 10 MG Tablet 5 MG PO (20:19)
--- NOTE | 2018-04-05 20:37 | NURSING ---
Toe nails long. Toe nails trimmed at this time. Pt tolerated well. Will continue to monitor and asses.
[2018-04-06] MEDS: Levothyroxine 50 MCG Tablet PO (06:15)
[2018-04-06] MEDS: Menthol/Lanolin/Calamine/Znox 113 GM Tube 1 APPLIC TOPICAL ×3 (06:16→19:37)
[2018-04-06] MEDS: Enoxaparin 40 MG/0.4 ML Syringe SC (07:46)
[2018-04-06] MEDS: Aspirin 81 MG TAB.CHEW PO (07:46)
[2018-04-06] MEDS: Polyethylene Glycol 3350 17 GM PACKET PO (07:47)
[2018-04-06] MEDS: Senna/Docusate Sodium 1 Tablet PO ×2 (07:47→19:34)
[2018-04-06] MEDS: Fluticasone/Salmeterol 232-14 Inhaler 1 PUFF IH ×2 (07:49→19:35)
--- NOTE | 2018-04-06 11:59 | CASEMGMT ---
Insurance Clinical information faxed. Pending continued stay approval at this time. Auth#[id number] Anahi KENNEY, NURSING EXECUTIVE
--- NOTE | 2018-04-06 14:56 | CASEMGMT ---
Plan of care meeting held. Resident present as well as resident spouse. No discharge date set at this time. Resident plans to discharge to home with spouse at time of discharge. Resident with insurance update due today, pending continued stay approval at this time. Resident aware that continued stay approval is not guaranteed. Resident to continue with further care and treatment on the Transitional Care Unit at this time. Support given. Will continue to follow. Anahi KENNEY, IP ARCHITECT
--- NOTE | 2018-04-06 15:37 | CASEMGMT ---
Insurance Continued stay approved with next update due on 04/11/18. Auth#[id number] Anahi KENNEY, SALESPERSON [employer]
--- NOTE | 2018-04-06 15:58 | CASEMGMT ---
Brief interview for mental status (BIMS) and resident mood interview (PHQ-9) completed on this day. BIMS score 13/15. PHQ-9 score 11/28
[2018-04-06 16:00] VITALS: BP 119/73; PULSE 83; RESP 18; TEMP 37; O2SAT 96
[2018-04-06] MEDS: Atorvastatin Calcium 10 MG Tablet 5 MG PO (19:35)
[2018-04-06] MEDS: Mirtazapine 15 MG Tablet 7.5 MG PO (21:41)
[2018-04-07] MEDS: Menthol/Lanolin/Calamine/Znox 113 GM Tube 1 APPLIC TOPICAL ×3 (05:28→20:36)
[2018-04-07] MEDS: Levothyroxine 50 MCG Tablet PO (05:28)
[2018-04-07 05:45] LABS: Absolute Neutrophil Count 5.8 X10^3/uL (2.0-7.7); Basophil# 0.02 X10^3/uL; Basophil% 0.2 % (0-1); Eosinophil# 0.15 X10^3/uL; Eosinophils% 1.5 % (0-5); Hematocrit 41.4 % (37-47); Hemoglobin 13.5 g/dl (12.0-15.0); Lymphocyte % 28.3 % (19-41); Mean Corp Hgb Conc 32.6 g/gl (32-36); Mean Corpuscular Hgb 28.3 pg (27.0-32.0); Mean Corpuscular Volume 86.8 fL (81-99); Mean Platelet Vol. 9.6 fl (6.2-12.0); Monocyte# 1.28 X10^3/uL; Monocyte% 12.5 % (0-10); Neutrophil # 5.75 X10^3/uL (2.7-7.7); Neutrophil % 56.2 % (47-70); Platelet Count 348 K/mm3 (150-450); RBC Distribution Width CV 15.6 % (11.6-14.6); RBC Distribution Width SD 48.9 fl (35.1-43.9); Red Blood Count 4.77 M/mm3 (4.2-5.4); White Blood Count 10.2 K/mm3 (4.4-11.0)
[2018-04-07 05:46] LABS: POSITIVE COUNT NO; POSITIVE DIFFERENTIAL NO; POSITIVE MORPHOLOGY NO
[2018-04-07 06:07] LABS: Anion Gap 7 (5-15); BUN 21 mg/dL (7-18); BUN/Creat Ratio 26.9 RATIO (10-20); Calcium,Total 9.1 mg/dL (8.5-10.1); Chloride 102 mmol/L (98-107); Creatinine, Serum 0.78 mg/dL (0.55-1.02); EST Glomerular Filtration Rate 76 mL/min (>60); Est Glom Filt Rate - Afr Amer 92 mL/min (>60); Estimated Creatinine Clearance 40.27 ml/min; Glucose 104 mg/dL (74-106); Potassium 4.5 mmol/L (3.5-5.1); Sodium Level 140 mmol/L (136-145)
[2018-04-07] MEDS: Aspirin 81 MG TAB.CHEW PO (08:37)
[2018-04-07] MEDS: Enoxaparin 40 MG/0.4 ML Syringe SC (08:37)
[2018-04-07] MEDS: Polyethylene Glycol 3350 17 GM PACKET PO (08:37)
[2018-04-07] MEDS: Senna/Docusate Sodium 1 Tablet PO ×2 (08:38→20:35)
[2018-04-07] MEDS: Fluticasone/Salmeterol 232-14 Inhaler 1 PUFF IH ×2 (08:38→20:36)
[2018-04-07] MEDS: Tuberculin,Purif.prot.deriv. 50 TU/ML Vial 5 ML ID (11:49)
[2018-04-07 15:28] VITALS: BP 115/71; PULSE 88; RESP 20; TEMP 36.5; O2SAT 96
[2018-04-07] MEDS: Atorvastatin Calcium 10 MG Tablet 5 MG PO (20:34)
[2018-04-07] MEDS: Mirtazapine 15 MG Tablet 7.5 MG PO (20:35)
[2018-04-08] MEDS: Levothyroxine 50 MCG Tablet PO (05:24)
[2018-04-08] MEDS: Menthol/Lanolin/Calamine/Znox 113 GM Tube 1 APPLIC TOPICAL ×3 (05:25→20:28)
[2018-04-08] MEDS: Aspirin 81 MG TAB.CHEW PO (08:35)
[2018-04-08] MEDS: Fluticasone/Salmeterol 232-14 Inhaler 1 PUFF IH ×2 (08:35→20:27)
[2018-04-08] MEDS: Polyethylene Glycol 3350 17 GM PACKET PO (08:35)
[2018-04-08] MEDS: Enoxaparin 40 MG/0.4 ML Syringe SC (08:35)
[2018-04-08] MEDS: Senna/Docusate Sodium 1 Tablet PO (08:36)
[2018-04-08 15:22] VITALS: BP 117/73; PULSE 70; RESP 18; TEMP 37; O2SAT 96
[2018-04-08] MEDS: Atorvastatin Calcium 10 MG Tablet 5 MG PO (20:26)
[2018-04-08] MEDS: Mirtazapine 15 MG Tablet 7.5 MG PO (20:26)
[2018-04-09] MEDS: Levothyroxine 50 MCG Tablet PO (06:12)
[2018-04-09] MEDS: Menthol/Lanolin/Calamine/Znox 113 GM Tube 1 APPLIC TOPICAL ×3 (06:12→21:17)
[2018-04-09] MEDS: Senna/Docusate Sodium 1 Tablet PO ×2 (08:25→17:33)
[2018-04-09] MEDS: Aspirin 81 MG TAB.CHEW PO (08:25)
[2018-04-09] MEDS: Enoxaparin 40 MG/0.4 ML Syringe SC (08:25)
[2018-04-09] MEDS: Fluticasone/Salmeterol 232-14 Inhaler 1 PUFF IH ×2 (08:26→17:35)
--- NOTE | 2018-04-09 08:55 | NURSING ---
Went to enter room & noted pt was transferring self from BSC to bed without any difficulty or assist. Reminded pt that she needs to call for assist until therapy clears her to be up on own. Pt c/o slight SOB this am, but no dizziness/lightheadedness. Pt voided and small stool noted in commode. bladder scanned for 83cc. No difficulty urinating, bladder scans look WNLs. Will update Dr Lee.
[2018-04-09 15:33] VITALS: BP 121/72; PULSE 73; RESP 18; TEMP 36.6; O2SAT 96
[2018-04-09] MEDS: Mirtazapine 15 MG Tablet 7.5 MG PO (21:15)
[2018-04-09] MEDS: Atorvastatin Calcium 10 MG Tablet 5 MG PO (21:15)
[2018-04-10] MEDS: Levothyroxine 50 MCG Tablet PO (05:38)
[2018-04-10] MEDS: Menthol/Lanolin/Calamine/Znox 113 GM Tube 1 APPLIC TOPICAL ×3 (05:39→20:17)
[2018-04-10] MEDS: Senna/Docusate Sodium 1 Tablet PO (08:05)
[2018-04-10] MEDS: Aspirin 81 MG TAB.CHEW PO (08:05)
[2018-04-10] MEDS: Fluticasone/Salmeterol 232-14 Inhaler 1 PUFF IH ×2 (08:05→20:13)
[2018-04-10] MEDS: Enoxaparin 40 MG/0.4 ML Syringe SC (08:05)
[2018-04-10] MEDS: Polyethylene Glycol 3350 17 GM PACKET PO (08:06)
[2018-04-10 15:43] VITALS: BP 147/67; PULSE 71; RESP 18; TEMP 36.9; O2SAT 96
[2018-04-10] MEDS: Atorvastatin Calcium 10 MG Tablet 5 MG PO (20:16)
[2018-04-10] MEDS: Mirtazapine 15 MG Tablet 7.5 MG PO (20:16)
[2018-04-11] MEDS: Levothyroxine 50 MCG Tablet PO (06:24)
[2018-04-11] MEDS: Menthol/Lanolin/Calamine/Znox 113 GM Tube 1 APPLIC TOPICAL ×3 (06:25→20:32)
[2018-04-11] MEDS: Aspirin 81 MG TAB.CHEW PO (08:39)
[2018-04-11] MEDS: Polyethylene Glycol 3350 17 GM PACKET PO (08:39)
[2018-04-11] MEDS: Fluticasone/Salmeterol 232-14 Inhaler 1 PUFF IH ×2 (08:40→20:28)
[2018-04-11] MEDS: Enoxaparin 40 MG/0.4 ML Syringe SC (08:40)
--- NOTE | 2018-04-11 10:44 | CASEMGMT ---
Insurance Clinical information faxed. Pending continued stay approval at this time. Auth#[id number] Anahi KENNEY, CHROME WORKER
--- NOTE | 2018-04-11 13:40 | MDS.RN ---
Information for the mds was obtained from review of the clinical record, interview of resident, staff, and direct observation of resident's care.
[2018-04-11 15:08] VITALS: BP 110/56; PULSE 75; RESP 18; TEMP 36.8; O2SAT 96
--- NOTE | 2018-04-11 16:37 | CHAPLAIN ---
Type of Pastoral Visit _x__ Initial Visit ___ Follow-up Visit ___ On-call Visit ___ General Patient Visit ___ Spiritual Assessment ___ Family Conference ___ Bereavement ___ Rapid Response ___ Code Blue ___ Other (describe below) Pastoral Care Referral From _x__ Patient ___ Family ___ Nurse ___ Physician ___ Electrical Journeyman ___ Field Hockey Coach ___ Other (describe below) Sacrament/Intervention _x__ Active listening ___ Anointing ___ Caodaism ___ Bereavement ___ Communion ___ Megan exploration ___ ___ Life review ___ Prayer ___ Reconciliation ___ Sacrament of Sick ___ Supportive presence ___ Wedding ___ Other (describe below) Pastoral Comments patient and spouse in room watching TV; pt said that recovery is coming slow and she is weak but says that she does not need anything at this time; offer of future support as desired
--- NOTE | 2018-04-11 16:51 | CASEMGMT ---
Brief interview for mental status (BIMS) and resident mood interview (PHQ-9) completed on this day. BIMS score 15. PHQ-9 score 07/31
[2018-04-11] MEDS: Atorvastatin Calcium 10 MG Tablet 5 MG PO (20:30)
[2018-04-11] MEDS: Mirtazapine 15 MG Tablet 7.5 MG PO (20:30)
[2018-04-12] MEDS: Menthol/Lanolin/Calamine/Znox 113 GM Tube 1 APPLIC TOPICAL ×3 (05:57→20:43)
[2018-04-12] MEDS: Levothyroxine 50 MCG Tablet PO (05:57)
--- NOTE | 2018-04-12 08:46 | CASEMGMT ---
Insurance Continued stay approved with next update due on 04/14/18. Auth#[id number] Anahi KENNEY, PLATE GRINDER
[2018-04-12] MEDS: Enoxaparin 40 MG/0.4 ML Syringe SC (09:32)
[2018-04-12] MEDS: Fluticasone/Salmeterol 232-14 Inhaler 1 PUFF IH ×2 (09:32→20:42)
[2018-04-12] MEDS: Aspirin 81 MG TAB.CHEW PO (09:33)
[2018-04-12] MEDS: Senna/Docusate Sodium 1 Tablet PO ×2 (09:34→20:42)
[2018-04-12 15:22] VITALS: BP 119/63; PULSE 82; RESP 18; TEMP 37.5; O2SAT 97
[2018-04-12 17:16] VITALS: TEMP 36.8
[2018-04-12] MEDS: Atorvastatin Calcium 10 MG Tablet 5 MG PO (20:43)
[2018-04-12] MEDS: Mirtazapine 15 MG Tablet 7.5 MG PO (20:43)
[2018-04-13] MEDS: Menthol/Lanolin/Calamine/Znox 113 GM Tube 1 APPLIC TOPICAL ×3 (05:44→20:09)
[2018-04-13] MEDS: Levothyroxine 50 MCG Tablet PO (05:44)
[2018-04-13 05:45] VITALS: PULSE 61; O2SAT 96
[2018-04-13] MEDS: Fluticasone/Salmeterol 232-14 Inhaler 1 PUFF IH ×2 (08:26→20:08)
[2018-04-13] MEDS: Senna/Docusate Sodium 1 Tablet PO (08:27)
[2018-04-13] MEDS: Aspirin 81 MG TAB.CHEW PO (08:27)
[2018-04-13] MEDS: Enoxaparin 40 MG/0.4 ML Syringe SC (08:27)
[2018-04-13 15:50] VITALS: BP 113/67; PULSE 67; RESP 18; TEMP 36.2; O2SAT 95
[2018-04-13] MEDS: Atorvastatin Calcium 10 MG Tablet 5 MG PO (20:09)
[2018-04-13] MEDS: Mirtazapine 15 MG Tablet 7.5 MG PO (20:10)
[2018-04-14] MEDS: Levothyroxine 50 MCG Tablet PO (05:17)
[2018-04-14] MEDS: Menthol/Lanolin/Calamine/Znox 113 GM Tube 1 APPLIC TOPICAL ×3 (05:20→20:11)
[2018-04-14 05:53] LABS: Absolute Lymphocyte Count 2.39 X10^3/ul (0.83-4.51); Absolute Neutrophil Count 5.2 X10^3/uL (2.0-7.7); Basophil# 0.03 X10^3/uL; Basophil% 0.3 % (0-1); Eosinophils% 2.2 % (0-5); Hemoglobin 13.3 g/dl (12.0-15.0); Lymphocyte # 2.39 X10^3/ul (4.0); Lymphocyte % 26.8 % (19-41); Mean Corp Hgb Conc 32.4 g/gl (32-36); Mean Corpuscular Hgb 28.5 pg (27.0-32.0); Mean Corpuscular Volume 87.8 fL (81-99); Mean Platelet Vol. 9.9 fl (6.2-12.0); Monocyte# 1.07 X10^3/uL; Neutrophil # 5.16 X10^3/uL (2.7-7.7); Neutrophil % 57.9 % (47-70); Platelet Count 227 K/mm3 (150-450); RBC Distribution Width CV 15.2 % (11.6-14.6); Red Blood Count 4.67 M/mm3 (4.2-5.4); White Blood Count 8.9 K/mm3 (4.4-11.0)
[2018-04-14 05:55] LABS: POSITIVE COUNT NO; POSITIVE DIFFERENTIAL NO; POSITIVE MORPHOLOGY NO
[2018-04-14 06:12] LABS: Anion Gap 6 (5-15); BUN 25 mg/dL (7-18); BUN/Creat Ratio 33.9 RATIO (10-20); Calcium,Total 9.1 mg/dL (8.5-10.1); Chloride 104 mmol/L (98-107); Creatinine, Serum 0.74 mg/dL (0.55-1.02); EST Glomerular Filtration Rate 81 mL/min (>60); Est Glom Filt Rate - Afr Amer 99 mL/min (>60); Estimated Creatinine Clearance 40.48 ml/min; Glucose 97 mg/dL (74-106); Potassium 4.5 mmol/L (3.5-5.1); Sodium Level 142 mmol/L (136-145)
[2018-04-14] MEDS: Polyethylene Glycol 3350 17 GM PACKET PO (08:01)
[2018-04-14] MEDS: Enoxaparin 40 MG/0.4 ML Syringe SC (08:01)
[2018-04-14] MEDS: Senna/Docusate Sodium 1 Tablet PO (08:01)
[2018-04-14] MEDS: Aspirin 81 MG TAB.CHEW PO (08:01)
[2018-04-14] MEDS: Fluticasone/Salmeterol 232-14 Inhaler 1 PUFF IH ×2 (08:01→20:10)
--- NOTE | 2018-04-14 11:39 | CASEMGMT ---
Insurance Clinical information faxed. Pending continued stay approval at this time. Auth#[id number] Anahi KENNEY, TRANSPORT TECHNICIAN
[2018-04-14 15:41] VITALS: BP 111/61; PULSE 62; RESP 18; TEMP 36.9; O2SAT 96
--- NOTE | 2018-04-14 16:50 | CASEMGMT ---
Insurance Continued stay denied with last cover day being 04/16/18 and resident to discharge or financial responsibility to begin on 04/17/18. Auth#[id number] Anahi KENNEY, CHARTER COACH DRIVER
--- NOTE | 2018-04-14 16:50 | CASEMGMT ---
Social Work Spoke with resident and resident spouse in room. This social media marketing specialist communicating that continued stay has been denied by insurance with a last cover day of 04/16/18 and resident to discharge on or financial responsibility to begin on 04/17/18. Resident choosing to discharge on 04/17/18 to home with spouse. This social media marketing specialist communicating that both physical and occupational as well as [facility] is recommending for resident to continue with services at time of discharge. Resident is agreeable to recommendation and requesting for home health care to be set up through [facility]. Resident reporting to have all needed durable medical equipment already set up within the home. Resident spouse plans to provide transportation home for resident at time of discharge. Support given. Telephone call to [facility], Radha. This social media marketing specialist making referral for physical and occupational therapy as well as [facility]. Clinical information faxed. Radha reporting that referral is pending approval at this time and this social media marketing specialist will be contacted to confirm if resident is accepted. Proposed discharge date: 04/17/18 PLAN: Discharge to home with spouse and home health care. Anahi KENNEY, CLAIMS ADMINISTRATOR
[2018-04-14] MEDS: Atorvastatin Calcium 10 MG Tablet 5 MG PO (20:12)
[2018-04-14] MEDS: Mirtazapine 15 MG Tablet 7.5 MG PO (20:13)
--- NOTE | 2018-04-14 20:58 | DCINST_ITS ---
- Discharge Diagnoses Current Active Problems: Current Active and Chronic Problems (Last Reviewed 04/14/18 @ 06:52 by Anel Hernandez) Fever (Acute) Pulmonary nodules (Chronic) Urinary retention (Acute) Debility (Acute) Hyperlipidemia (Chronic) Vitamin D deficiency (Chronic) You will use the following diet at home:: No restrictions, Regular Your food should be the consistency of: Regular Your liquids should be the consistency of: Regular/Thin Discharge Activity: Return to Normal Activity, May Shower, Use Walker Weight Bearing Status: Weight bearing as tolerated Call your doctor if you observe: Fever of 101 or Higher, Inability to urinate, Inability to have a bowel movement, Shortness of breath, Chest pain, Uncontrolled pain Allergies/Adverse Reactions: Allergies No Known Allergies Allergy (Verified 04/14/18 13:25) Medications to take at Discharge Aspirin 81 mg PO QHS 07/02/17 Cholecalciferol (Vitamin D3) [Vitamin D3] 4,000 unit PO LUNCH 07/02/17 Levothyroxine [Synthroid] 50 mcg PO DAILY 07/02/17 Simvastatin [Zocor] 1 tab PO QHS 07/02/17 budesonide-formoterol HFA 160 mcg-4.5 mcg/actuation aerosol inhaler 1 puff INHAL ATION BID 03/16/18 Acetaminophen [Tylenol] 1,000 mg PO Q8H PRN PRN tablet 04/14/18 Menthol/Lanolin/Calamine/Znox [Calmoseptine Ointment] 1 applic TOPICAL TID tube 04/14/18 Mirtazapine [Remeron] 7.5 mg PO QHS #30 tablet 04/14/18 The following prescriptions were given: Mirtazapine [Remeron] 7.5 mg PO QHS #30 tablet Primary Care Physician: Abeba Castanon DO [Primary Care Provider] - Please follow up with your Primary Care Physician in: 1 week. Test Results: Test results from this visit will be discussed in further detail at your follow- up appointment, if applicable. Please Follow Up With: Evie Garnett NP Proposed Discharge Date: 04/17/18
--- NOTE | 2018-04-14 21:00 | HHNOTE_ITS ---
Home Health Note - Plan Overview of reason of hospitalization: The patient is a 77 year old Female with below past medical history hospitalized for chest pain, myocardial infarction ruled out, stress test as outpatient, complicated by sepsis secondary to acute bronchitis, admitted to TCU with debility, here for rehabilitation, strengthening, prior to discharge home with spouse. Discharge home with spouse, and Home Health Services. Problems: Patient was seen for (Last Reviewed 04/14/18 @ 06:52 by Anel Hernandez) Fever (Acute) Pulmonary nodules (Chronic) Urinary retention (Acute) Debility (Acute) Hyperlipidemia (Chronic) Vitamin D deficiency (Chronic) Complete List of Medical Problems (Last Reviewed 04/14/18 @ 06:52 by Anel Hernandez) Chest pain (Acute) Hypothyroidism (Chronic) COPD (chronic obstructive pulmonary disease) (Chronic) Acute bronchitis (Acute) Sepsis (Acute) Asthma exacerbation (Acute) Bronchiectasis (Chronic) Fever (Acute) Pulmonary nodules (Chronic) Urinary retention (Acute) Debility (Acute) Hyperlipidemia (Chronic) Vitamin D deficiency (Chronic) Bronchitis (Acute) - Requirements and Reasons Disciplines Needed/Ordered: [facility], Physical Therapy Reason for Disciplines: Disease Specific Monitoring/education, Medication Management/Knowledge Deficit Related To: Limited/Poor Endurance, Shortness of Breath with Activity, Physical Impairments, Unsteady Gait/Balance, Fall Risk Patient is unable to leave the home: Without Aid of Supportive Devices (crutches, cane, wheelchair, walker), Without the assistance of another person - Additional Disciplines Additional Disciplines Needed/Ordered: Occupational Therapy
--- NOTE | 2018-04-14 21:00 | DS.PCM_ITS ---
Discharge Date and Diagnosis - Problem List Patient Problems: Active and Suspected Problems (Last Reviewed 04/14/18 @ 06:52 by Anel Hernandez) Fever (Acute) Urinary retention (Acute) Debility (Acute) Date of Admission: 03/30/18 Date of Discharge: 04/17/18 - Primary Discharge Diagnosis Active and Suspected Problems (Last Reviewed 04/14/18 @ 06:52 by Anel Hernandez) Fever (Acute) Urinary retention (Acute) Debility (Acute) - Secondary Discharge Diagnosis Chronic Problems (Last Reviewed 04/14/18 @ 06:52 by Anel Hernandez) Hypothyroidism (Chronic) COPD (chronic obstructive pulmonary disease) (Chronic) Bronchiectasis (Chronic) Pulmonary nodules (Chronic) Hyperlipidemia (Chronic) Vitamin D deficiency (Chronic) Hospital Course and Treatment Imaging Results: 04/06/18 18:14 Diet: Regular Diet Is pt able to select menu?: Yes Labs (Last 48 Hours) 04/14/18 04/14/18 05:35 05:35 WBC 8.9 RBC 4.67 Hgb 13.3 Hct 41.0 MCV 87.8 MCH 28.5 MCHC 32.4 RDW 15.2 H RDW Differential 49.0 H Plt Count 227 MPV 9.9 Immature Gran % (Auto) 0.800 Neut % (Auto) 57.9 Lymph % (Auto) 26.8 [place] % (Auto) 12.0 H Eos % (Auto) 2.2 Baso % (Auto) 0.3 Absolute Neuts (auto) 5.2 Absolute Lymphs (auto) 2.39 Total Counted Not Reportable Sodium 142 Potassium 4.5 Chloride 104 Carbon Dioxide 32.0 Anion Gap 6 BUN 25 H Creatinine 0.74 Estim Creat Clear Calc 40.48 Est GFR (MDRD) Af Amer 99 Est GFR (MDRD) Non-Af 81 BUN/Creatinine Ratio 33.9 H Glucose 97 Calcium 9.1 Operations: None Procedures: None Summary of Care Provided: The patient is a 77 year old Female with below past medical history hospitalized for chest pain, myocardial infarction ruled out, stress test as outpatient, complicated by sepsis secondary to acute bronchitis, admitted to TCU with debility, here for rehabilitation, strengthening, prior to discharge home with spouse. Discharge home with spouse, and Home Health Services. Patient Problems: Active and Suspected Problems (Last Reviewed 04/14/18 @ 06:52 by Anel Hernandez) Fever (Acute) Urinary retention (Acute) Debility (Acute) - Physical Exam Vital Signs Temp Pulse Resp BP Pulse Ox 98.5 F 62 18 111/61 96 04/14/18 15:41 04/14/18 15:41 04/14/18 15:41 04/14/18 15:41 04/14/18 15:41 Oxygen Delivery Method Room Air Weight: 53.581 kg Body Mass Index (BMI) 21.1 Intake and Output for Last 24 Hours 04/12/18 04/13/18 04/14/18 23:59 23:59 23:59 Intake Total 480 / 480 520 / 520 660 / 660 Balance 480 / 480 520 / 520 660 / 660 Laboratory Tests Past 24 Hrs 04/14/18 04/14/18 05:35 05:35 WBC 8.9 RBC 4.67 Hgb 13.3 Hct 41.0 MCV 87.8 MCH 28.5 MCHC 32.4 RDW 15.2 H RDW Differential 49.0 H Plt Count 227 MPV 9.9 Immature Gran % (Auto) 0.800 Neut % (Auto) 57.9 Lymph % (Auto) 26.8 [place] % (Auto) 12.0 H Eos % (Auto) 2.2 Baso % (Auto) 0.3 Absolute Neuts (auto) 5.2 Absolute Lymphs (auto) 2.39 Total Counted Not Reportable Sodium 142 Potassium 4.5 Chloride 104 Carbon Dioxide 32.0 Anion Gap 6 BUN 25 H Creatinine 0.74 Estim Creat Clear Calc 40.48 Est GFR (MDRD) Af Amer 99 Est GFR (MDRD) Non-Af 81 BUN/Creatinine Ratio 33.9 H Glucose 97 Calcium 9.1 Discharge Diet: No Restrictions Discharge Activity: Return to Normal Activity, May Shower, Use Walker Weight Bearing Status: Weight bearing as tolerated Call your doctor if you observe: Fever of 101 or Higher, Inability to urinate, Inability to have a bowel movement, Shortness of breath, Chest pain, Uncontrolled pain Home Medications: Medications to take at Discharge Aspirin 81 mg PO QHS 07/02/17 Cholecalciferol (Vitamin D3) [Vitamin D3] 4,000 unit PO LUNCH 07/02/17 Levothyroxine [Synthroid] 50 mcg PO DAILY 07/02/17 Simvastatin [Zocor] 1 tab PO QHS 07/02/17 budesonide-formoterol HFA 160 mcg-4.5 mcg/actuation aerosol inhaler 1 puff INHAL ATION BID 03/16/18 Acetaminophen [Tylenol] 1,000 mg PO Q8H PRN PRN tablet 04/14/18 Menthol/Lanolin/Calamine/Znox [Calmoseptine Ointment] 1 applic TOPICAL TID tube 04/14/18 Mirtazapine [Remeron] 7.5 mg PO QHS #30 tablet 04/14/18 Following Prescrptions Were Given to Patient: Mirtazapine [Remeron] 7.5 mg PO QHS #30 tablet Primary Care Physician: Abeba Castanon DO [Primary Care Provider] - Please follow up with your Primary Care Physician in: 1 week. Please Follow Up With: Evie Garnett NP When: 2 weeks. Disposition: Home with Home Health Minutes spent on discharge:: 35 Patient Condition:: Stable Medical Necessity - Tobacco Use Smoking Status: Never smoker Tobacco Use: Non-smoker Meaningful Use Info Meaningful Use Diagnoses (Choose all that apply): None applicable
[2018-04-15] MEDS: Menthol/Lanolin/Calamine/Znox 113 GM Tube 1 APPLIC TOPICAL ×3 (04:29→20:20)
[2018-04-15] MEDS: Levothyroxine 50 MCG Tablet PO (04:30)
[2018-04-15] MEDS: Fluticasone/Salmeterol 232-14 Inhaler 1 PUFF IH ×2 (08:09→20:14)
[2018-04-15] MEDS: Enoxaparin 40 MG/0.4 ML Syringe SC (08:10)
[2018-04-15] MEDS: Aspirin 81 MG TAB.CHEW PO (08:10)
[2018-04-15] MEDS: Senna/Docusate Sodium 1 Tablet PO ×2 (08:10→20:14)
--- NOTE | 2018-04-15 12:47 | CASEMGMT ---
Social Work [facility] is able to accept resident and plan to have start of care on 04/18/18. Order faxed. Proposed discharge date: 04/17/18 PLAN: Discharge to home with spouse and home health services. Anahi KENNEY, MOTORBOAT MECHANIC INBOARD/OUTBOARD
[2018-04-15 15:34] VITALS: BP 130/81; PULSE 85; RESP 18; TEMP 36.9; O2SAT 94
[2018-04-15] MEDS: Atorvastatin Calcium 10 MG Tablet 5 MG PO (20:14)
[2018-04-15] MEDS: Mirtazapine 15 MG Tablet 7.5 MG PO (20:14)
[2018-04-16] MEDS: Levothyroxine 50 MCG Tablet PO (05:19)
[2018-04-16] MEDS: Menthol/Lanolin/Calamine/Znox 113 GM Tube 1 APPLIC TOPICAL ×3 (05:21→21:51)
[2018-04-16] MEDS: Fluticasone/Salmeterol 232-14 Inhaler 1 PUFF IH ×2 (09:10→21:48)
[2018-04-16] MEDS: Enoxaparin 40 MG/0.4 ML Syringe SC (09:10)
[2018-04-16] MEDS: Aspirin 81 MG TAB.CHEW PO (09:10)
[2018-04-16] MEDS: Senna/Docusate Sodium 1 Tablet PO ×2 (09:11→21:44)
[2018-04-16 12:34] LABS: Mucous, Urine 0 SEEN /hpf (<or=2+)
[2018-04-16 12:47] LABS: Color, Urine Yellow (Yellow); Glucose, Dipstick Normal (Normal); Ketone-Dipstick Negative (Negative); Leukocyte Esterase-Dipstick 500 /ul (Negative); Nitrite-Dipstick Positive (Negative); Occult Blood-Urine 150 /ul (Negative); Protein-Dipstick 100 mg/dl (Negative); Urine Bilirubin Dipstick Negative (Negative); Urine Clarity Cloudy (Clear); Urine Urobilinogen Normal (Normal)
[2018-04-16 12:56] LABS: Bacteria 3+ /hpf (None Seen); Red Blood Cells-Urine 5-10 SEEN /hpf (0-5); Squamous Epithelial Cells - UA 0-5 SEEN /hpf (5-10); White Blood Cells >100 SEEN /hpf (0-5)
[2018-04-16 16:00] VITALS: BP 104/69; PULSE 79; RESP 20; TEMP 36.4; O2SAT 95
[2018-04-16] MEDS: Ciprofloxacin 500 MG Tablet PO (16:27)
[2018-04-16] MEDS: Mirtazapine 15 MG Tablet 7.5 MG PO (21:49)
[2018-04-16] MEDS: Atorvastatin Calcium 10 MG Tablet 5 MG PO (21:49)
[2018-04-17] MEDS: Levothyroxine 50 MCG Tablet PO (05:51)
[2018-04-17] MEDS: Menthol/Lanolin/Calamine/Znox 113 GM Tube 1 APPLIC TOPICAL (05:52)
[2018-04-17] MEDS: Ciprofloxacin 500 MG Tablet PO (05:52)
[2018-04-17] MEDS: Senna/Docusate Sodium 1 Tablet PO (08:35)
[2018-04-17] MEDS: Aspirin 81 MG TAB.CHEW PO (08:35)
[2018-04-17] MEDS: Fluticasone/Salmeterol 232-14 Inhaler 1 PUFF IH (08:35)
[2018-04-17] MEDS: Enoxaparin 40 MG/0.4 ML Syringe SC (08:35)
[2018-04-17 15:00] VITALS: BP 112/75; PULSE 72; RESP 18; TEMP 36.4; O2SAT 97
--- NOTE | 2018-04-18 10:50 | CASEMGMT ---
Insurance Notified insurance of resident discharge on 04/17/18 to home with spouse and home health services. Auth#[id number] Anahi KENNEY, NEUROSURGICAL PHYSICIAN ASSISTANT
== END 2018-04-17 15:00 | disposition home health service (06) | DRG 948 ==
PROVIDERS: Admitting Provider Family Medicine Geriatric Medicine; Family Provider Internal Medicine; PCP Internal Medicine; Referring Provider Family Medicine Geriatric Medicine; Visit Provider Family Medicine Geriatric Medicine
DX: R53.81 Other malaise (principal); J44.0 Chronic obstructive pulmonary disease with (acute) lower respiratory infection; N39.0 Urinary tract infection, site not specified; E03.9 Hypothyroidism, unspecified; E78.5 Hyperlipidemia, unspecified; J20.9 Acute bronchitis, unspecified; R33.9 Retention of urine, unspecified; R91.8 Other nonspecific abnormal finding of lung field; E55.9 Vitamin D deficiency, unspecified; B96.20 Unspecified Escherichia coli [E. coli] as the cause of diseases classified elsewhere
CPT/HCPCS: 36415; 80048; 81001; 85025; 87086; 87088; 87186; 94640; 97110; 97116; 97163; 97166; 97530; 97535; 97802; A4216

== ENCOUNTER 2018-03-31 09:34 | Emergency (ER) | payer MEDICARE, SELFPAY ==
[2018-03-31 09:35] VITALS: BP 158/85; PULSE 63; RESP 17; TEMP 36.6; O2SAT 95; BMI 21.4
--- NOTE | 2018-03-31 09:45 | CT_ITS ---
STUDY: CT ABDOMEN AND PELVIS WITH CONTRAST REASON FOR EXAM: Female, 77 years old. 2 day history of abdominal pain. Diarrhea. RADIATION DOSAGE (If Supplied By Facility): CTDIvol = ( 15.06 ) mGy, DLP = ( 771.89 ) mGycm TECHNIQUE: Transaxial images were obtained from the dome of the diaphragm to the symphysis pubis without oral contrast. 100 ml of Isovue 300 contrast was administered. Sagittal and coronal images were reconstructed. Individualized dose optimization techniques were used for this CT. COMPARISON: Comparison is made with prior study dated March 08, 2012. FINDINGS: Small bilateral pleural effusions. Bibasilar infiltrates superimposed on scarring worse on the right side. Coronary artery calcification. Normal liver. Minimal degree of central intrahepatic biliary ductal dilatation. Normal spleen. Normal pancreas. Normal bilateral adrenal glands. Normal right kidney. There is a 1.7 cm x 1.5 cm cyst in the upper lateral portion of the left kidney. There is also evidence of a 2.1 cm cyst in the posterior inferior portion of the left kidney. There is a small hiatal hernia. Normal small intestine. Moderate amount of fecal material is seen in the colon. The appendix is visualized and appears normal. There is diffuse atherosclerotic calcification of the abdominal aorta, without a demonstrated aneurysm. Normal inferior vena cava. There is borderline retroperitoneal lymphadenopathy with enlarged nodes no greater than 10mm in the short axis diameter. Distended urinary bladder. Normal abdominal wall. Marked degree of disc space narrowing and degeneration at the L5-S1 level. CT/Abdomen/Pelvis W IV Cont ONLY IMPRESSION: Left renal cysts. Minimally dilated intrahepatic biliary ducts. Small bilateral effusions and bibasilar infiltrates worse on the right side superimposed on chronic changes. Small hiatal hernia. Electronically Signed: Constantine Marquez MD at 11:02 EDT Tel [phone], Service support ,
--- NOTE | 2018-03-31 09:46 | EKG12_ITS ---
Test Reason : DIZZINESS Blood Pressure : / mmHG Vent. Rate : 059 BPM Atrial Rate : 059 BPM P-R Int : 148 ms QRS Dur : 076 ms QT Int : 420 ms P-R-T Axes : 068 041 053 degrees QTc Int : 415 ms Sinus bradycardia with sinus arrhythmia Low voltage QRS (limb leads) Confirmed by HARIS LEYVA, LEAH ([id number]), marketing editor WALKER PEDERSEN ([id number]) on 04/04/2018 2:43:36 PM Referred By: Van Lee Confirmed By:LEAH CARBALLO MD
--- NOTE | 2018-03-31 09:55 | ED.VISSUMM ---
- ER Visit Summary Date of Service: 03/31/18 Chief Complaint: Dizziness, diarrhea History of Present Illness: The patient is a 77 F presents to the emergency department with lightheadedness. The patient was recently hospitalized for 5 days. She had sepsis secondary to COPD exacerbation of bronchiectasis. The patient was treated with steroids, nebulized aerosols, and Levaquin. She was transferred to the TCU yesterday. She states today, she has begun to have some increasing abdominal cramping and loose watery diarrhea. She describes lightheadedness especially when she stands. She feels as if she is going to pass out. States yesterday, she felt much better. She denies any other systemic symptoms. She has had no chest pain. She denies visual change. Physical Examination: Vital signs reviewed General: Well-nourished, well-developed Head: Normocephalic, atraumatic Eyes: Pupils equal and reactive, extraocular muscles intact Neck, supple, no lymphadenopathy Heart: Regular rate and rhythm Respiratory: No distress, clear bilaterally Abdomen: Soft, nontender, nondistended, no peritoneal signs Back: Nontender Extremities: Nontender, no edema, no cords Skin: Normal color no rash Neuro: Alert and oriented, no focal or lateralizing deficits Test Results: [] Emergency Department Course and Treatment: The patient was minimally tender in the midepigastric area. IV was established. EKG was obtained which demonstrated sinus bradycardia at a rate of 59. There is no prolonged QT. There is no acute ischemic change. Screening labs do show mild leukocytosis, but again the patient is already on antibiotics and steroids. Her urine shows no infection. The patient did have a bowel movement with a formed stool so her C. difficile was canceled. She underwent CT of the abdomen and pelvis which showed questionable dilation of the intrahepatic biliary tree. She does have a minimal elevation of her liver function test so an ultrasound was obtained which was unremarkable. I did discuss the patient with Dr. Leal. The plan is to send the patient back to the TCU. Prior to that, I discussed this with the patient and her daughter. Her daughter was concerned because she has been having intermittent headaches also. With this, I did obtain a head CT. This was unremarkable. At this time, I do feel that she is safe for discharge back to the TCU for continued therapy. Treatment Plan: [] Disposition: Discharge Impression: 1. Lightheadedness This note was generated with Verdiem dictation software. It may contain incorrect words, spelling, and punctuation that were not noted in review of the chart prior to signing ED Disposition - Plan for ED Patient: Chief Complaint: Dizziness Instructions: ED Dizziness [facility] Referrals: Abeba Castanon DO [Primary Care Provider] -
[2018-03-31 10:08] LABS: Absolute Lymphocyte Count 1.79 X10^3/ul (0.83-4.51); Absolute Neutrophil Count 9.4 X10^3/uL (2.0-7.7); Basophil# 0.01 X10^3/uL; Basophil% 0.1 % (0-1); Eosinophil# 0.01 X10^3/uL; Eosinophils% 0.1 % (0-5); Hematocrit 38.2 % (37-47); Hemoglobin 12.9 g/dl (12.0-15.0); Lymphocyte # 1.79 X10^3/ul (4.0); Lymphocyte % 14.6 % (19-41); Mean Corp Hgb Conc 33.8 g/gl (32-36); Monocyte# 1.01 X10^3/uL; Monocyte% 8.3 % (0-10); Neutrophil # 9.37 X10^3/uL (2.7-7.7); Neutrophil % 76.7 % (47-70); Platelet Count 293 K/mm3 (150-450); RBC Distribution Width CV 14.6 % (11.6-14.6); RBC Distribution Width SD 44.5 fl (35.1-43.9); White Blood Count 12.2 K/mm3 (4.4-11.0)
[2018-03-31 10:09] LABS: POSITIVE COUNT NO; POSITIVE DIFFERENTIAL NO; POSITIVE MORPHOLOGY NO
[2018-03-31 10:20] VITALS: BP 170/74; PULSE 65; RESP 18; O2SAT 94
[2018-03-31] MEDS: 0.9% Normal Saline 1,000 ML 1000 ML IV (10:22)
[2018-03-31 10:25] LABS: ALB/GLOB Ratio 0.8 RATIO (0.9-2.4); AST(SGOT) 69 U/L (15-37); Alanine Aminotransfer ALT/SGPT 78 U/L (13-56); Albumin, Serum 2.9 g/dL (3.2-5.0); Alkaline Phosphatase 91 U/L (45-117); Anion Gap 8 (5-15); BUN 19 mg/dL (7-18); Calcium,Total 8.9 mg/dL (8.5-10.1); Chloride 106 mmol/L (98-107); EST Glomerular Filtration Rate 86 mL/min (>60); Est Glom Filt Rate - Afr Amer 104 mL/min (>60); Globulin 3.6 g/dL (2.2-4.2); Glucose 109 mg/dL (74-106); Lipase 40 U/L (73-393); Potassium 3.7 mmol/L (3.5-5.1); Protein, Total 6.5 g/dL (6.4-8.2); Sodium Level 138 mmol/L (136-145)
[2018-03-31 10:40] LABS: Lactic Acid 1.4 mmol/L (0.4-2.0)
--- NOTE | 2018-03-31 11:05 | US_ITS ---
STUDY: ABDOMINAL ULTRASOUND - RIGHT UPPER QUADRANT REASON FOR VISIT: Female, 77 years old. Right upper quadrant pain. TECHNIQUE: Ultrasound evaluation of the right upper quadrant was performed with real-time and static mccoy-scale imaging. TECHNICAL QUALITY: Adequate. COMPARISON: Comparison is made with prior study dated May 17, 2013. FINDINGS: Liver: The liver measures 16.1 cm. There is normal echogenicity of the liver. The bile ducts are within normal limits. There is hepatic color flow. The direction of portal flow is hepatopetal. There is no demonstrated mass lesion. Gallbladder: Normal distended gallbladder. The gallbladder wall measures 1.9 mm. There is a negative sonographic Berg's sign. There is no pericholecystic fluid. There are no gallstones. Common Bile Duct (C.B.D.): The common bile duct measures 3.0 mm. Pancreas: Normal size of the head, body and tail of the pancreas. There is normal echogenicity of the pancreas. There is no demonstrated pancreatic mass or cyst. Right Kidney: Normal size of the right kidney. The right kidney measures 9.0 cm x 5.1 cm x 4.0 cm. Normal renal cortex. The right cortex measures 1.3 cm. There is no demonstrated renal mass or cyst. There is no right hydronephrosis. Extrarenal pelvis is seen. US/Gallbladder IMPRESSION: Normal right upper quadrant ultrasound examination. Electronically Signed: Constantine Marquez MD at 12:22 EDT Tel [phone], Service support ,
[2018-03-31 11:08] LABS: Bacteria 0 SEEN /hpf (None Seen); Mucous, Urine 0 SEEN /hpf (<or=2+); Red Blood Cells-Urine 0 SEEN /hpf (0-5); Squamous Epithelial Cells - UA 0 SEEN /hpf (5-10); White Blood Cells 0 SEEN /hpf (0-5)
[2018-03-31 11:10] LABS: Color, Urine Yellow (Yellow); Glucose, Dipstick Normal (Normal); Ketone-Dipstick Negative (Negative); Leukocyte Esterase-Dipstick Negative /ul (Negative); Nitrite-Dipstick Negative (Negative); Occult Blood-Urine Negative /ul (Negative); Protein-Dipstick Negative (Negative); Specific Gravity, Urine 1.005 (1.002-1.030); Urine Bilirubin Dipstick Negative (Negative); Urine Clarity Clear (Clear); Urine Urobilinogen Normal (Normal)
--- NOTE | 2018-03-31 13:22 | CT_ITS ---
STUDY: CT BRAIN WITHOUT CONTRAST REASON FOR EXAM: Female, 77 years old. Dizziness. RADIATION DOSAGE (If Supplied By Facility): CTDIvol = ( 60.81 ) mGy, DLP = ( 1067.08 ) mGycm TECHNIQUE: Transaxial CT imaging of the brain was performed without administration of intravenous contrast material. Individualized dose optimization techniques were used for this CT. COMPARISON: None. FINDINGS: Normal soft tissue structures. Normal calvarium. There is moderate cerebral atrophy with widening of the extra-axial spaces and ventricular dilatation. There are areas of decreased attenuation within the white matter tracts of the supratentorial brain, consistent with microvascular disease changes. Normal basal ganglia and thalami. Normal brainstem. There is mild cerebellar atrophy. There is no intracranial hemorrhage. There are no findings of an acute ischemic infarction. Atherosclerotic changes of the cavernous portions of the internal carotid arteries bilaterally. Partial opacification of the right maxillary sinus. Mucosal thickening of the left maxillary sinus. Partial opacification of the right sphenoid sinus. CT/Brain/Head without Contrast IMPRESSION: Chronic involutional changes of the brain. Sinusitis. Electronically Signed: Constantine Marquez MD at 14:08 EDT Tel [phone], Service support ,
[2018-03-31 13:59] VITALS: PULSE 62; RESP 22; O2SAT 94
--- NOTE | 2018-03-31 14:18 | ED.RN ---
PATIENT UNABLE TO PERFORM ORTHOSTATIC VITALS DUE TO PATIENT STATING SHE IS TOO DIZZY AND WEAK. DR. AGUIRRE AWARE.
[2018-03-31 14:56] VITALS: BP 155/74; PULSE 67; RESP 16; O2SAT 96
== END 2018-03-31 14:57 | disposition short-term general hospital (02) ==
PROVIDERS: Emergency Provider Emergency Medicine; Family Provider Internal Medicine; PCP Internal Medicine
DX: R42 Dizziness and giddiness (principal); R11.0 Nausea; A41.9 Sepsis, unspecified organism; J47.1 Bronchiectasis with (acute) exacerbation; I10 Essential (primary) hypertension; E78.00 Pure hypercholesterolemia, unspecified; Z79.82 Long term (current) use of aspirin; Z79.899 Other long term (current) drug therapy
CPT/HCPCS: 70450; 74177; 76705; 80053; 81001; 83605; 83690; 85025; 93005; 96360; 99282; J7030; Q9967; A4216

== ENCOUNTER → 2018-06-09 12:51 | Outpatient (CLI) | payer MEDICARE, SELFPAY ==
--- NOTE | 2018-06-10 10:48 | PFT ---
INTRODUCTION: The patient is a 77-year-old female that presents for pulmonary function testing secondary to a diagnosis of COPD. Respiratory therapy reports good patient effort. Bronchodilators were used during testing. INTERPRETATION: Forced expiration spirometry demonstrates the presence of a mild large airways obstructive ventilatory defect. There was no significant response to aerosolized bronchodilators. Spirograms are of fair quality and plateau normally. Body plethysmography was performed and reveals lung volumes to be within normal limits. Diffusing capacity by single breath CO is within normal limits at 79% of predicted. IMPRESSION: These pulmonary function studies demonstrate the presence of an irreversible mild large airways obstructive ventilatory defect. Lung volumes and diffusing capacity are within normal limits. There are no previous pulmonary function studies available for comparison.
== END ==
PROVIDERS: Family Provider Internal Medicine; PCP Internal Medicine; Referring Provider Nurse Practitioner Acute Care; Visit Provider Nurse Practitioner Acute Care
DX: J44.9 Chronic obstructive pulmonary disease, unspecified (principal)
CPT/HCPCS: 94060; 94726; 94729

== ENCOUNTER → 2018-06-10 12:21 | Outpatient (CLI) | payer MEDICARE, SELFPAY ==
[2018-04-14 13:24] VITALS: BMI 19.0
[2018-06-10 12:43] VITALS: PULSE 107; PULSE 108; PULSE 109; PULSE 65; PULSE 67; PULSE 93; PULSE 97; O2SAT 95; O2SAT 96; O2SAT 97; O2SAT 98
--- NOTE | 2018-06-11 08:37 | PCM.PSN.6M ---
PSN 6 Minute Walk Test - 6 Minute Walk Test 6 Minute Walk Test: 6 Minute Walk Test PSN:6-Minute Walk Test Start: 06/10/18 12:42 Freq: Status: Active Protocol: [id number].6MINW Document 06/10/18 12:43 SMB (Rec: 06/10/18 12:53 SMB [id number]) 6 Minute Walk Test Date Performed 06/10/18 Time Performed 12:29 Height 5 ft 6 in Weight: 124 lb Weight in Pounds 124.[address]: Evie Garnett Assistive device used: None Pre-test Oxygen Delivery Method Room Air Pulse Ox (%) 97 Pulse Rate (60-100 beats/min) 67 Dyspnea Syed Scale (0-10) 0 Exertion Syed Scale (6-20) 11 1st minute Oxygen Delivery Method Room Air Pulse Ox (%) 98 Pulse Rate (60-100 beats/min) 107 H 2nd minute Oxygen Delivery Method Room Air Pulse Ox (%) 95 Pulse Rate (60-100 beats/min) 109 H 3rd minute Oxygen Delivery Method Room Air Pulse Ox (%) 96 Pulse Rate (60-100 beats/min) 108 H 4th minute Oxygen Delivery Method Room Air Pulse Ox (%) 96 Pulse Rate (60-100 beats/min) 97 5th minute Oxygen Delivery Method Room Air Pulse Ox (%) 96 Pulse Rate (60-100 beats/min) 107 H 6th minute Oxygen Delivery Method Room Air Pulse Ox (%) 96 Pulse Rate (60-100 beats/min) 93 Post-test Oxygen Delivery Method Room Air Pulse Ox (%) 98 Pulse Rate (60-100 beats/min) 65 Dyspnea Syed Scale (0-10) 1 Exertion Syed Scale (6-20) 13 Full Laps Walked 15 Partial Lap, Number of Tiles Walked 21 Total Distance Walked (ft) 906 - Interpretation Interpretation: The patient ambulated 906 feet over the course of 6 minutes beginning on room air without assistive devices or breaks. Pretesting oxygen saturation was noted to be 97% on room air. With ambulation, the renetta oxygen saturation was 95%. There was no significant exertional oxygen desaturation. - Recommendations Recommendations: There is no indication for the use of supplemental oxygen at this time.
== END ==
PROVIDERS: Family Provider Internal Medicine; PCP Internal Medicine; Referring Provider Nurse Practitioner Acute Care; Visit Provider Nurse Practitioner Acute Care
DX: J44.9 Chronic obstructive pulmonary disease, unspecified (principal)
CPT/HCPCS: 94618

== ENCOUNTER → 2019-02-06 11:24 | Outpatient (CLI) | payer MEDICARE, SELFPAY ==
[2019-01-16 13:29] VITALS: BMI 20.1
[2019-02-06 13:57] LABS: Absolute Lymphocyte Count 2.28 X10^3/uL (0.83-4.51); Absolute Neutrophil Count 4.2 X10^3/uL (2.0-7.7); Basophil# 0.03 X10^3/uL; Basophil% 0.4 % (0-1); Eosinophil# 0.07 X10^3/uL; Hematocrit 46.9 % (37-47); Hemoglobin 15.1 g/dL (12.0-15.0); Lymphocyte # 2.28 X10^3/ul (4.0); Lymphocyte % 31.9 % (19-41); Mean Corp Hgb Conc 32.2 g/dL (32-36); Mean Corpuscular Hgb 28.2 pg (27.0-32.0); Mean Corpuscular Volume 87.7 fL (81-99); Mean Platelet Vol. 10.4 fl (6.2-12.0); Monocyte# 0.59 X10^3/uL; Monocyte% 8.3 % (0-10); NRBC Flagged by Analyzer 0 % (0-5); Neutrophil # 4.16 X10^3/uL (2.7-7.7); Neutrophil % 58.3 % (47-70); Platelet Count 254 K/mm3 (150-450); RBC Distribution Width CV 13.3 % (11.6-14.6); RBC Distribution Width SD 42.6 fl (35.1-43.9); Red Blood Count 5.35 M/mm3 (4.2-5.4); White Blood Count 7.1 K/mm3 (4.4-11.0)
[2019-02-06 14:03] LABS: Color, Urine Yellow (Yellow); Glucose, Dipstick Normal (Normal); Ketone-Dipstick 5 mg/dl (Negative); Leukocyte Esterase-Dipstick 100 /ul (Negative); Nitrite-Dipstick Negative (Negative); Occult Blood-Urine 10 /ul (Negative); Protein-Dipstick 100 mg/dl (Negative); Specific Gravity, Urine 1.025 (1.002-1.030); Urine Bilirubin Dipstick Negative (Negative); Urine Clarity Clear (Clear); Urine Urobilinogen Normal (Normal)
[2019-02-06 14:18] LABS: Vitamin D,25 Hydroxy 45.2 ng/mL (29.95-100.01)
[2019-02-06 14:19] LABS: ALB/GLOB Ratio 1.1 RATIO (0.9-2.4); AST(SGOT) 14 U/L (15-37); Alanine Aminotransfer ALT/SGPT 23 U/L (13-56); Albumin, Serum 3.8 g/dL (3.2-5.0); Alkaline Phosphatase 101 U/L (45-117); Anion Gap 9 (5-15); BUN 26 mg/dL (7-18); BUN/Creat Ratio 32.1 RATIO (10-20); Chloride 106 mmol/L (98-107); Creatinine, Serum 0.81 mg/dL (0.55-1.02); EST Glomerular Filtration Rate 73 mL/min (>60); Est Glom Filt Rate - Afr Amer 88 mL/min (>60); Free T3 2.6 pg/mL (2.18-3.98); Globulin 3.6 g/dL (2.2-4.2); Glucose 106 mg/dL (74-106); Potassium 4.1 mmol/L (3.5-5.1); Protein, Total 7.4 g/dL (6.4-8.2); Sodium Level 142 mmol/L (136-145); T4 Free Direct 1.44 ng/dL (0.76-1.46); Thyroid Stim Hormone (TSH) 1.68 uIU/mL (0.358-3.74)
[2019-02-06 14:42] LABS: Microalbumin:Creatinine Ratio 359.9 mg/g CRE (<30 mg/g CRE)
[2019-02-07 14:08] LABS: CHOLESTEROL TOTAL 159 mg/dL (100-199); HDL-C 69 mg/dL (>39); HDL-P TOTAL 42.2 umol/L (>=30.5); SMALL LDL-P 370 nmol/L (<=527); TRIGLYCERIDES 76 mg/dL (0-149)
[2019-02-07 16:25] LABS: INSULIN RESISTANCE SCORE 32 (<=45); LDL-C 75 mg/dL (0-99); LDL-P 786 nmol/L (<1000)
== END ==
PROVIDERS: Family Provider Internal Medicine; PCP Internal Medicine; Referring Provider Internal Medicine; Visit Provider Internal Medicine
DX: E03.9 Hypothyroidism, unspecified (principal); E55.9 Vitamin D deficiency, unspecified; E78.49 Other hyperlipidemia; R73.01 Impaired fasting glucose
CPT/HCPCS: 36415; 80053; 80061; 81002; 82043; 82306; 82570; 83704; 84439; 84443; 84481; 85025

== ENCOUNTER → 2019-05-30 14:11 | Outpatient (CLI) | payer MEDICARE, SELFPAY ==
[2019-01-16 13:29] VITALS: BMI 20.1
[2019-05-12 13:29] VITALS: BMI 20.1
--- NOTE | 2019-05-30 14:14 | BI_ITS ---
MAMMOGRAPHY - BILATERAL SCREENING 3-D TOMOSYNTHESIS REASON FOR EXAM: Female, 78 years old. Routine annual screening examination. PERTINENT HISTORY: No significant family history. TECHNIQUE: 2-D mammograms and 3-D Tomosynthesis of the breast (s) were performed. CAD was performed. COMPARISON: December 01, 2017, August 07, 2016 FINDINGS: The breast composition is almost entirely fat. Stable lymph nodes in both axilla.. No dense spiculated masses or suspicious microcalcifications are identified. No architectural distortion is identified. There is no skin thickening or retraction. There has been no significant change since the prior study. BI/SCREEN MAMM (CAD) W/FADIA BILAT IMPRESSION: No mammographic signs of malignancy. Routine yearly mammograms recommended. ASSESSMENT CATEGORY: BIRADS Category 2: Benign. A letter regarding these results will be sent to the patient by the facility within 30 days. FOLLOW UP RECOMMENDATION: Yearly follow up mammogram recommended. (A) Approximately 10% of breast cancers are not detected by mammography. A normal mammogram should not delay biopsy of a clinically suspicious abnormality. Electronically Signed: Carl Goldman MD at 16:33 EST , Service support ,
--- NOTE | 2019-05-30 14:22 | BD_ITS ---
STUDY: DUAL ENERGY X-RAY ABSORPTIOMETRY / DXA REASON FOR EXAM: Female, 78 years old. The patient is postmenopausal. Loss of height. TECHNIQUE: Bone Mineral Density (BMD) measurements of lumbar spine and bilateral hips were obtained. COMPARISON: Comparison is made with prior study dated May 25, 2017. FINDINGS: Lumbar Spine (L1-L4): g/cm2 (1.012) / T-score (-1.3) / Z-score (0.5) Findings are suggestive of osteopenia with a low fracture risk. Increased kyphosis. Left Femur Total: g/cm2 (0.962) / T-score (-0.4) / Z-score (1.5) Left Femoral Neck: g/cm2 (0.922) / T-score (-0.8) / Z-score (1.2) Right Femur Total: g/cm2 (0.990) / T-score (-0.1) / Z-score (1.7) Right Femoral Neck: g/cm2 (0.943) / T-score (-0.7) / Z-score (1.4) The T-Scores on the most recent prior examination were: Lumbar Spine (L1-L4): There has been worsening of bone density since the previous examination. Left Femur Total: which represents a worsening of 1.6%. Right Femur Total: which represents a worsening of 2.9%. BD/Dexa Bone Density Study IMPRESSION: The patient is considered osteopenic as outlined below according to World [employer] Organization (WHO) criteria with a low fracture risk. There has been worsening of bone density since the previous examination. Reference Information: The T-score is the number of standard deviations above or below the standard which is normal for young adults at their peak bone mineral density. The World Health Organization (WHO) interprets the T-scores as follows: Above -1 Normal bone density Between -1 and -2.5 Osteopenia Equal to / or below -2.5 Osteoporosis As a practical clinical guideline, osteopenia may be graded as follows: Mild -1 through -1.5 Moderate -1.6 through -2.0 Severe -2.1 through -2.4 The Z-score is the number of standard deviations above or below age-matched controls. A Z-score of less than -1.5 would be considered abnormal. References: 1. NIH Osteoporosis and Related Bone Diseases http://www.osteo.org 2. International Society for Clinical Densitometry http://www.iscd.org 3. National Osteoporosis Foundation http://www.nof.org Electronically Signed: Constantine Marquez, at 9:21 EST , Service support ,
== END ==
PROVIDERS: Family Provider Internal Medicine; PCP Internal Medicine; Referring Provider Internal Medicine; Visit Provider Internal Medicine
DX: Z78.0 Asymptomatic menopausal state (principal); Z12.31 Encounter for screening mammogram for malignant neoplasm of breast
CPT/HCPCS: 77063; 77067; 77080

== ENCOUNTER → 2019-08-04 15:43 | Outpatient (CLI) | payer MEDICARE, SELFPAY ==
[2019-07-21 08:14] VITALS: BMI 20.1
[2019-08-04 17:45] LABS: Absolute Neutrophil Count 7.3 X10^3/uL (2.0-7.7); Basophil# 0.05 X10^3/uL; Basophil% 0.5 % (0-1); Hematocrit 45.7 % (37-47); Hemoglobin 14.5 g/dL (12.0-15.0); Lymphocyte % 11.9 % (19-41); Mean Corp Hgb Conc 31.7 g/dL (32-36); Mean Corpuscular Hgb 27.9 pg (27.0-32.0); Mean Corpuscular Volume 87.9 fL (81-99); Monocyte# 0.95 X10^3/uL; Monocyte% 9.5 % (0-10); NRBC Flagged by Analyzer 0 % (0-5); Neutrophil % 72.6 % (47-70); Platelet Count 269 K/mm3 (150-450); RBC Distribution Width CV 13.2 % (11.6-14.6); RBC Distribution Width SD 42.6 fl (35.1-43.9); White Blood Count 10.1 K/mm3 (4.4-11.0)
[2019-08-04 17:52] LABS: ALB/GLOB Ratio 0.9 RATIO (0.9-2.4); AST(SGOT) 16 U/L (15-37); Alanine Aminotransfer ALT/SGPT 24 U/L (13-56); Albumin, Serum 3.7 g/dL (3.2-5.0); Alkaline Phosphatase 101 U/L (45-117); Anion Gap 5 (5-15); BUN 32 mg/dL (7-18); BUN/Creat Ratio 42.2 RATIO (10-20); Calcium,Total 9.2 mg/dL (8.5-10.1); Chloride 108 mmol/L (98-107); Cholesterol 162 mg/dL (200); Creatinine, Serum 0.76 mg/dL (0.55-1.02); EST Glomerular Filtration Rate 79 mL/min (>60); Est Glom Filt Rate - Afr Amer 95 mL/min (>60); Glucose 92 mg/dL (74-106); High Density Lipoprotein 49 mg/dL; Potassium 3.6 mmol/L (3.5-5.1); Protein, Total 7.7 g/dL (6.4-8.2); Sodium Level 141 mmol/L (136-145); Thyroid Stim Hormone (TSH) 2.41 uIU/mL (0.358-3.74); Triglycerides 175 mg/dL; Very Low Density Lipoprotein 35 mg/dL (5-40)
[2019-08-04 17:54] LABS: Vitamin D,25 Hydroxy 37.5 ng/mL (29.95-100.01)
[2019-08-04 18:00] LABS: Microalbumin,Random Urine 74.1 mg/L (NO RANGE EST.); Microalbumin:Creatinine Ratio 50.8 mg/g CRE (<30 mg/g CRE)
== END ==
PROVIDERS: PCP Internal Medicine; Referring Provider Internal Medicine; Visit Provider Internal Medicine
DX: E03.9 Hypothyroidism, unspecified (principal); E55.9 Vitamin D deficiency, unspecified; E78.49 Other hyperlipidemia; R30.0 Dysuria; R73.01 Impaired fasting glucose
CPT/HCPCS: 36415; 80053; 80061; 82043; 82306; 82570; 84443; 85025; 87086; 87088

== ENCOUNTER → 2020-06-18 | Outpatient (CLI) | payer MEDICARE, SELFPAY ==
[2020-06-18 17:20] VITALS: BMI 20.8
== END | disposition home or self-care (01) ==
LOC: LABSPEC 18:37
PROVIDERS: PCP Internal Medicine; Visit Provider Physician Assistant Surgical
DX: Z20.828 Contact with and (suspected) exposure to other viral communicable diseases (principal)
CPT/HCPCS: 87635; U0003

== ENCOUNTER → 2020-08-08 12:06 | Outpatient (CLI) | payer MEDICARE, SELFPAY ==
[2020-07-29 13:23] VITALS: BMI 20.7
[2020-08-08 12:19] LABS: Bacteria 0 SEEN /hpf (None Seen); Red Blood Cells-Urine 0 SEEN /hpf (0-5); Squamous Epithelial Cells - UA 0 SEEN /hpf (5-10); White Blood Cells 0 SEEN /hpf (0-5)
[2020-08-08 15:32] LABS: Absolute Neutrophil Count 5.4 X10^3/uL (2.0-7.7); Basophil# 0.03 X10^3/uL; Basophil% 0.4 % (0-1); Color, Urine Yellow (Yellow); Eosinophil# 0.04 X10^3/uL; Eosinophils% 0.5 % (0-5); Glucose, Dipstick Normal (Normal); Hematocrit 47.3 % (37-47); Hemoglobin 15.4 g/dL (12.0-15.0); Ketone-Dipstick 50 mg/dl (Negative); Leukocyte Esterase-Dipstick 25 /ul (Negative); Lymphocyte % 23.7 % (19-41); Mean Corp Hgb Conc 32.6 g/dL (32-36); Mean Corpuscular Hgb 28.3 pg (27.0-32.0); Mean Corpuscular Volume 86.9 fL (81-99); Mean Platelet Vol. 10.2 fl (6.2-12.0); Monocyte% 7.5 % (0-10); NRBC Flagged by Analyzer 0 % (0-5); Neutrophil # 5.42 X10^3/uL (2.7-7.7); Neutrophil % 67.7 % (47-70); Nitrite-Dipstick Negative (Negative); Occult Blood-Urine Negative /ul (Negative); Platelet Count 283 K/mm3 (150-450); Protein-Dipstick 30 mg/dl (Negative); RBC Distribution Width CV 13.5 % (11.6-14.6); Red Blood Count 5.44 M/mm3 (4.2-5.4); Specific Gravity, Urine 1.025 (1.002-1.030); Urine Bilirubin Dipstick Negative (Negative); Urine Clarity Clear (Clear); Urine Urobilinogen Normal (Normal)
[2020-08-08 15:42] LABS: Mucous, Urine RARE /hpf (<or=2+)
[2020-08-08 15:50] LABS: Vitamin D,25 Hydroxy 86.4 ng/mL
[2020-08-08 15:54] LABS: Hemoglobin A1c 5.6 % (3.8-5.6)
[2020-08-08 15:55] LABS: ALB/GLOB Ratio 1.2 RATIO (0.9-2.4); AST(SGOT) 18 U/L (15-37); Alanine Aminotransfer ALT/SGPT 24 U/L (13-56); Albumin, Serum 4.1 g/dL (3.2-5.0); Alkaline Phosphatase 94 U/L (45-117); Anion Gap 8 (5-15); BUN 23 mg/dL (7-18); BUN/Creat Ratio 29.4 RATIO (10-20); Calcium,Total 9.6 mg/dL (8.5-10.1); Chloride 104 mmol/L (98-107); Cholesterol 161 mg/dL (200); Creatinine, Serum 0.78 mg/dL (0.55-1.02); EST Glomerular Filtration Rate 76 mL/min (>60); Est Glom Filt Rate - Afr Amer 92 mL/min (>60); Globulin 3.5 g/dL (2.2-4.2); Glucose 91 mg/dL (74-106); High Density Lipoprotein 80 mg/dL; Potassium 3.5 mmol/L (3.5-5.1); Protein, Total 7.6 g/dL (6.4-8.2); Sodium Level 139 mmol/L (136-145); Thyroid Stim Hormone (TSH) 1.87 uIU/mL (0.358-3.74); Triglycerides 60 mg/dL; Very Low Density Lipoprotein 12 mg/dL (5-40)
[2020-08-08 16:05] LABS: Microalbumin:Creatinine Ratio 148.4 mg/g CRE (<30 mg/g CRE)
== END ==
PROVIDERS: PCP Internal Medicine; Referring Provider Internal Medicine; Visit Provider Internal Medicine
DX: E55.9 Vitamin D deficiency, unspecified (principal); E03.9 Hypothyroidism, unspecified; E78.49 Other hyperlipidemia; R73.01 Impaired fasting glucose
CPT/HCPCS: 36415; 80053; 80061; 81001; 82043; 82306; 82570; 83036; 84443; 85025

== ENCOUNTER → 2021-04-02 11:33 | Outpatient (CLI) | payer MEDICARE, SELFPAY ==
[2021-04-02 11:56] LABS: Mucous, Urine 0 SEEN /hpf (<or=2+); Red Blood Cells-Urine 0 SEEN /hpf (0-5)
[2021-04-02 15:15] LABS: Absolute Lymphocyte Count 2.39 X10^3/uL (0.83-4.51); Absolute Neutrophil Count 3.9 X10^3/uL (2.0-7.7); Basophil# 0.03 X10^3/uL; Basophil% 0.4 % (0-1); Color, Urine Yellow (Yellow); Eosinophils% 1.4 % (0-5); Glucose, Dipstick Normal (Normal); Hematocrit 44.8 % (37-47); Hemoglobin 14.3 g/dL (12.0-15.0); Ketone-Dipstick Negative (Negative); Leukocyte Esterase-Dipstick Negative /ul (Negative); Lymphocyte # 2.39 X10^3/ul (0.83-4.51); Lymphocyte % 33.8 % (19-41); Mean Corp Hgb Conc 31.9 g/dL (32-36); Mean Corpuscular Hgb 27.9 pg (27.0-32.0); Mean Corpuscular Volume 87.3 fL (81-99); Monocyte# 0.59 X10^3/uL; Monocyte% 8.3 % (0-10); NRBC Flagged by Analyzer 0 % (0-5); Neutrophil # 3.94 X10^3/uL (2.7-7.7); Neutrophil % 55.7 % (47-70); Nitrite-Dipstick Negative (Negative); Occult Blood-Urine Negative /ul (Negative); Platelet Count 275 K/mm3 (150-450); Protein-Dipstick 100 mg/dl (Negative); RBC Distribution Width CV 14.4 % (11.6-14.6); RBC Distribution Width SD 46.3 fl (35.1-43.9); Red Blood Count 5.13 M/mm3 (4.2-5.4); Specific Gravity, Urine 1.025 (1.002-1.030); Urine Bilirubin Dipstick Negative (Negative); Urine Clarity Clear (Clear); Urine Urobilinogen Normal (Normal); White Blood Count 7.1 K/mm3 (4.4-11.0)
[2021-04-02 15:25] LABS: Bacteria RARE /hpf (None Seen); Squamous Epithelial Cells - UA 0-5 SEEN /hpf (5-10); White Blood Cells 0-5 SEEN /hpf (0-5)
[2021-04-02 15:43] LABS: ALB/GLOB Ratio 0.9 RATIO (0.9-2.4); AST(SGOT) 24 U/L (15-37); Alanine Aminotransfer ALT/SGPT 31 U/L (13-56); Albumin, Serum 3.4 g/dL (3.2-5.0); Alkaline Phosphatase 87 U/L (45-117); Anion Gap 8 (5-15); BUN 30 mg/dL (7-18); BUN/Creat Ratio 43.5 RATIO (10-20); Calcium,Total 9.1 mg/dL (8.5-10.1); Chloride 106 mmol/L (98-107); Cholesterol 149 mg/dL (200); Creatinine, Serum 0.69 mg/dL (0.55-1.02); EST Glomerular Filtration Rate 87 mL/min (>60); Est Glom Filt Rate - Afr Amer 105 mL/min (>60); Globulin 3.8 g/dL (2.2-4.2); Glucose 101 mg/dL (74-106); High Density Lipoprotein 61 mg/dL; Protein, Total 7.2 g/dL (6.4-8.2); Sodium Level 142 mmol/L (136-145); Thyroid Stim Hormone (TSH) 2.29 uIU/mL (0.358-3.74); Triglycerides 67 mg/dL; Very Low Density Lipoprotein 13 mg/dL (5-40)
[2021-04-02 15:47] LABS: Microalbumin:Creatinine Ratio 203.2 mg/g CRE (<30 mg/g CRE)
== END ==
PROVIDERS: PCP Internal Medicine; Referring Provider Internal Medicine; Visit Provider Internal Medicine
DX: E03.9 Hypothyroidism, unspecified (principal); R73.01 Impaired fasting glucose
CPT/HCPCS: 36415; 80053; 80061; 81001; 82043; 82570; 84443; 85025

== ENCOUNTER 2021-10-09 10:26 | Outpatient (CLI) | payer MEDICARE, SELFPAY ==
[2021-10-09 12:03] LABS: Absolute Lymphocyte Count 1.97 X10^3/uL (0.83-4.51); Absolute Neutrophil Count 4.9 X10^3/uL (2.0-7.7); Basophil# 0.02 X10^3/uL; Basophil% 0.3 % (0-1); Eosinophil# 0.06 X10^3/uL; Eosinophils% 0.8 % (0-5); Hematocrit 43.3 % (37-47); Hemoglobin 13.8 g/dL (12.0-15.0); Lymphocyte # 1.97 X10^3/ul (0.83-4.51); Lymphocyte % 25.5 % (19-41); Mean Corp Hgb Conc 31.9 g/dL (32-36); Mean Corpuscular Hgb 28.2 pg (27.0-32.0); Mean Corpuscular Volume 88.5 fL (81-99); Mean Platelet Vol. 9.6 fl (6.2-12.0); Monocyte# 0.77 X10^3/uL; NRBC Flagged by Analyzer 0 % (0-5); Neutrophil # 4.87 X10^3/uL (2.7-7.7); Platelet Count 333 K/mm3 (150-450); RBC Distribution Width SD 42.5 fl (35.1-43.9); Red Blood Count 4.89 M/mm3 (4.2-5.4); White Blood Count 7.7 K/mm3 (4.4-11.0)
[2021-10-09 12:34] LABS: Vitamin D,25 Hydroxy 89.4 ng/mL
[2021-10-09 12:40] LABS: Hemoglobin A1c 5.5 % (3.8-5.6)
[2021-10-09 12:54] LABS: ALB/GLOB Ratio 0.9 RATIO (0.9-2.4); AST(SGOT) 14 U/L (15-37); Alanine Aminotransfer ALT/SGPT 21 U/L (13-56); Albumin, Serum 3.5 g/dL (3.2-5.0); Alkaline Phosphatase 92 U/L (45-117); Anion Gap 5 (5-15); BUN 28 mg/dL (7-18); BUN/Creat Ratio 41.6 RATIO (10-20); Calcium,Total 9.3 mg/dL (8.5-10.1); Chloride 106 mmol/L (98-107); Cholesterol 149 mg/dL (200); Creatinine, Serum 0.67 mg/dL (0.55-1.02); EST Glomerular Filtration Rate 90 mL/min (>60); Est Glom Filt Rate - Afr Amer 108 mL/min (>60); Globulin 4.1 g/dL (2.2-4.2); Glucose 109 mg/dL (74-106); High Density Lipoprotein 64 mg/dL; Potassium 3.8 mmol/L (3.5-5.1); Protein, Total 7.6 g/dL (6.4-8.2); Sodium Level 140 mmol/L (136-145); Thyroid Stim Hormone (TSH) 1.02 uIU/mL (0.358-3.74); Triglycerides 55 mg/dL; Very Low Density Lipoprotein 11 mg/dL (5-40)
== END 2021-10-09 23:59 | disposition home or self-care (01) ==
LOC: MTLAB 10:27
PROVIDERS: PCP Internal Medicine; Referring Provider Internal Medicine; Visit Provider Internal Medicine
DX: E55.9 Vitamin D deficiency, unspecified (principal); E78.49 Other hyperlipidemia; E03.9 Hypothyroidism, unspecified; R73.01 Impaired fasting glucose
CPT/HCPCS: 36415; 80053; 80061; 82306; 83036; 84443; 85025

== ENCOUNTER → 2022-03-24 | Outpatient (CLI) | payer MEDICARE, SELFPAY ==
--- NOTE | 2022-03-24 15:14 | BI_ITS ---
MAMMOGRAPHY - BILATERAL SCREENING 3-D TOMOSYNTHESIS REASON FOR EXAM: Female, 81 years old. SCREENING PERTINENT HISTORY: No significant family history. TECHNIQUE: 2-D mammograms and 3-D Tomosynthesis of the breast (s) were performed. CAD was performed. COMPARISON: 05/30/2019 FINDINGS: The breast composition is composed of scattered fibroglandular density. Scattered benign calcifications are seen. No dense spiculated masses or suspicious microcalcifications are identified. No architectural distortion is identified. There is no skin thickening or retraction. There has been no significant change since the prior study. BI/SCRN MAMM (CAD)W/FADIA BILAT IMPRESSION: No mammographic signs of malignancy. Routine yearly mammograms recommended. ASSESSMENT CATEGORY: BIRADS Category 1: Negative. A letter regarding these results will be sent to the patient by the facility within 30 days. FOLLOW UP RECOMMENDATION: Yearly follow up mammogram recommended. (A) Approximately 10% of breast cancers are not detected by mammography. A normal mammogram should not delay biopsy of a clinically suspicious abnormality. Electronically Signed: Boy Mckoy MD at 16:33 EDT ,
--- NOTE | 2022-03-24 15:15 | BD_ITS ---
STUDY: DUAL ENERGY X-RAY ABSORPTIOMETRY / DXA REASON FOR EXAM: Female, 81 years old. Z780. The patient is postmenopausal. TECHNIQUE: Bone Mineral Density (BMD) measurements of lumbar spine and bilateral hips were obtained. COMPARISON: Comparison is made with prior examination dated 05/30/2019. FINDINGS: Lumbar Spine (L1-L4): g/cm2 (0.890) / T-score (-1.3) / Z-score (1.3) Findings are suggestive of osteopenia with a low fracture risk. Left Femur Total: g/cm2 (0.814) / T-score (-1.1) / Z-score (1.0) Left Femoral Neck: g/cm2 (0.710) / T-score (-1.2) / Z-score (1.1) Right Femur Total: g/cm2 (0.880) / T-score (-0.5) / Z-score (1.6) Right Femoral Neck: g/cm2 (0.762) / T-score (-0.8) / Z-score (1.5) The T-Scores on the most recent prior examination were: Lumbar Spine (L1-L4): There has been worsening of bone density since the previous examination. Left Femur Total: which represents a worsening of 9.3%. Right Femur Total: which represents a worsening of 4.8%. BD/Dexa Bone Density Study IMPRESSION: The patient is considered osteopenic as outlined below according to World [employer] Organization (WHO) criteria with a low fracture risk. There has been worsening of bone density since the previous examination. Reference Information: The T-score is the number of standard deviations above or below the standard which is normal for young adults at their peak bone mineral density. The World Health Organization (WHO) interprets the T-scores as follows: Above -1 Normal bone density Between -1 and -2.5 Osteopenia Equal to / or below -2.5 Osteoporosis As a practical clinical guideline, osteopenia may be graded as follows: Mild -1 through -1.5 Moderate -1.6 through -2.0 Severe -2.1 through -2.4 The Z-score is the number of standard deviations above or below age-matched controls. A Z-score of less than -1.5 would be considered abnormal. References: 1. NIH Osteoporosis and Related Bone Diseases www osteo.org 2. International Society for Clinical Densitometry www iscd.org 3. National Osteoporosis Foundation www nof.org Electronically Signed: Constantine Marquez MD at 15:32 EDT ,
== END | disposition home or self-care (01) ==
LOC: OPBD 15:13
PROVIDERS: PCP Internal Medicine; Visit Provider Internal Medicine
DX: Z13.820 Encounter for screening for osteoporosis (principal); Z78.0 Asymptomatic menopausal state; Z12.31 Encounter for screening mammogram for malignant neoplasm of breast
CPT/HCPCS: 77063; 77067; 77080

== ENCOUNTER → 2023-06-16 | Outpatient (CLI) | payer MEDICARE, SELFPAY ==
--- NOTE | 2023-06-16 12:12 | BI_ITS ---
MAMMOGRAPHY - BILATERAL SCREENING REASON FOR EXAM: Female, 82 years old. Routine annual screening examination. PERTINENT HISTORY: Non-contributory. TECHNIQUE: Digital bilateral breast fadia (3D mammographic acquisition) in the CC and MLO projections. 2-D mediolateral oblique (MLO) and craniocaudad (CC) views of both breasts were obtained. CAD: Full Field Digital Mammography with Computer Added Detection was performed. COMPARISON: Comparison is made with prior study dated March 24, 2022 and May 30, 2019. FINDINGS: Breast Composition: There are scattered areas of fibroglandular density. There are no dominant masses or suspicious calcifications. No other significant abnormalities are identified. There has been no significant change since the prior study. BI/SCRN MAMM (CAD)W/FADIA BILAT IMPRESSION: Stable bilateral screening mammogram. Yearly follow-up mammogram recommended. (A) ASSESSMENT CATEGORY: BIRADS Category 1: Negative. A letter regarding these results will be sent to the patient by the facility within 30 days. Approximately 10% of breast cancers are not detected by mammography. A normal mammogram should not delay biopsy of a clinically suspicious abnormality. [id number] Electronically Signed: Constantine Marquez MD at 13:47 EST ,
== END | disposition home or self-care (01) ==
LOC: OPBI 12:11
PROVIDERS: PCP Internal Medicine; Referring Provider Internal Medicine; Visit Provider Internal Medicine
DX: Z12.31 Encounter for screening mammogram for malignant neoplasm of breast (principal)
CPT/HCPCS: 77063; 77067

== ENCOUNTER → 2023-07-16 | Outpatient (CLI) | payer MEDICARE, SELFPAY ==
[2023-07-16 12:26] LABS: Absolute Lymphocyte Count 1.85 X10^3/uL (0.83-4.51); Absolute Neutrophil Count 5.4 X10^3/uL (2.0-7.7); Basophil# 0.04 X10^3/uL; Basophil% 0.5 % (0-1); Eosinophil# 0.04 X10^3/uL; Eosinophils% 0.5 % (0-5); Hematocrit 46.1 % (37-47); Hemoglobin 14.1 g/dL (12.0-15.0); Lymphocyte # 1.85 X10^3/ul (0.83-4.51); Lymphocyte % 22.8 % (19-41); Mean Corp Hgb Conc 30.6 g/dL (32-36); Mean Corpuscular Hgb 27.8 pg (27.0-32.0); Mean Corpuscular Volume 90.7 fL (81-99); Mean Platelet Vol. 10.1 fl (6.2-12.0); Monocyte# 0.78 X10^3/uL; Monocyte% 9.6 % (0-10); NRBC Flagged by Analyzer 0 % (0-5); Neutrophil # 5.38 X10^3/uL (2.7-7.7); Neutrophil % 66.4 % (47-70); Platelet Count 270 K/mm3 (150-450); RBC Distribution Width CV 13.6 % (11.6-14.6); RBC Distribution Width SD 45.6 fl (35.1-43.9); Red Blood Count 5.08 M/mm3 (4.2-5.4); White Blood Count 8.1 K/mm3 (4.4-11.0)
[2023-07-16 13:16] LABS: ALB/GLOB Ratio 1.1 RATIO (0.9-2.4); AST(SGOT) 19 U/L (15-37); Alanine Aminotransfer ALT/SGPT 18 U/L (13-56); Albumin, Serum 3.7 g/dL (3.2-5.0); Alkaline Phosphatase 81 U/L (45-117); Anion Gap 8 (5-15); BUN 25 mg/dL (7-18); Calcium,Total 9.6 mg/dL (8.5-10.1); Chloride 105 mmol/L (98-107); Cholesterol 158 mg/dL (200); Creatinine, Serum 0.81 mg/dL (0.55-1.02); EST Glomerular Filtration Rate 72 mL/min (>60); Est Glom Filt Rate - Afr Amer 88 mL/min (>60); Globulin 3.5 g/dL (2.2-4.2); Glucose 101 mg/dL (74-106); High Density Lipoprotein 72 mg/dL; Potassium 3.9 mmol/L (3.5-5.1); Protein, Total 7.2 g/dL (6.4-8.2); Sodium Level 140 mmol/L (136-145); Thyroid Stim Hormone (TSH) 2.75 uIU/mL (0.358-3.74); Triglycerides 60 mg/dL; Very Low Density Lipoprotein 12 mg/dL (5-40)
[2023-07-16 14:00] LABS: Microalbumin:Creatinine Ratio 340.2 mg/g CRE (<30 mg/g CRE)
== END | disposition home or self-care (01) ==
LOC: MTLAB 10:24
PROVIDERS: PCP Internal Medicine; Referring Provider Internal Medicine; Visit Provider Internal Medicine
DX: E03.9 Hypothyroidism, unspecified (principal); E78.49 Other hyperlipidemia; E55.9 Vitamin D deficiency, unspecified; R73.01 Impaired fasting glucose
CPT/HCPCS: 36415; 80053; 80061; 82043; 82306; 82570; 84443; 85025

== ENCOUNTER → 2023-07-27 | Outpatient (CLI) | payer MEDICARE, SELFPAY ==
--- NOTE | 2023-07-27 14:59 | CDU_ITS ---
Reason For Study: Carotid artery stenosis Rt. Velocities/BP Lt. Velocities/BP Prox CCA 55.2/10.7 cm/sec. Prox CCA 70.2/12.6 cm/sec. Mid CCA 57/13.3 cm/sec. Mid CCA 61.7/14.5 cm/sec. Dist CCA 57.8/11.6 cm/sec. Dist CCA 60.7/15.4 cm/sec. Prox ICA 211.1/49.5 cm/sec. Prox ICA 57/14.5 cm/sec. Mid ICA 176.3/38 cm/sec. Mid ICA 65.5/19.2 cm/sec. Dist ICA 74/18.8 cm/sec. Dist ICA 88.1/22 cm/sec. Rt. ICA/CCA = 3.70. Lt. ICA/CCA = 1.43. Prox ECA 57/6.4 cm/sec. Prox ECA 65.5/6 cm/sec. Rt. Vert. 29.9/5.5 cm/sec. Lt. Vert. 36.2/10.7 cm/sec. Right Extracranial There is homogeneous, smooth atherosclerotic plaque noted in the right common carotid artery. There is heterogeneous, irregular atherosclerotic plaque noted in the right internal carotid artery. The atherosclerotic plaque causes acoustic shadowing. There is intimal thickening but no significant atherosclerotic plaque noted in the right external carotid artery. Antegrade flow is noted in the right vertebral artery. Left Extracranial There is homogeneous, smooth atherosclerotic plaque noted in the left common carotid artery. There is heterogeneous, irregular atherosclerotic plaque noted in the left internal carotid artery. There is intimal thickening but no significant atherosclerotic plaque noted in the left external carotid artery. Antegrade flow is noted in the left vertebral artery. Procedure This is a Carotid Duplex examination using B-mode, color flow and specral Doppler. Carotid Duplex [id number]. Exam performed in department. VL/Carotid Duplex Ultrasound Interpretation Summary Moderate (50-69%) stenosis right extracranial internal carotid. Mild (<50%) stenosis left extracranial internal carotid. Patent and antegrade vertebrals bilaterally. Ordering Physician: Abeba Castanon Referring Physician: Abeba Castanon M.D. Performed By: Pat Tang RVT
== END | disposition home or self-care (01) ==
LOC: CVS 14:54
PROVIDERS: PCP Internal Medicine; Visit Provider Internal Medicine
DX: I65.23 Occlusion and stenosis of bilateral carotid arteries (principal)
CPT/HCPCS: 93880

== ENCOUNTER → 2024-02-09 | Outpatient (CLI) | payer MEDICARE, SELFPAY ==
--- NOTE | 2024-02-09 13:20 | RAD_ITS ---
STUDY: X-RAY - CERVICAL SPINE REASON FOR EXAM: Female, 83 years old. Neck pain. TECHNIQUE: 2 view(s) of the cervical spine were obtained. COMPARISON: None FINDINGS: Osteopenia. Normal anterior atlantoaxial articulation. Normal odontoid process. Normal cervical lordosis. Diffuse moderate to marked uncovertebral and facet sclerosis. Diffuse intervertebral disc space narrowing. Osteophyte formation most marked at C5-6 and to the greatest degree C6-7. Minimal left carotid calcification. RAD/Cerv Spine 2 or 3 Views IMPRESSION: Osteopenia with diffuse moderate to marked cervical spondylosis. Electronically Signed: Carl Goldman MD at 10:34 EDT ,
== END | disposition home or self-care (01) ==
LOC: MTRAD 13:16
PROVIDERS: PCP Internal Medicine; Referring Provider Internal Medicine; Visit Provider Internal Medicine
DX: M54.2 Cervicalgia (principal)
CPT/HCPCS: 72040

== ENCOUNTER 2024-03-27 13:30 | Outpatient (RCR) | payer MEDICARE, SELFPAY ==
--- NOTE | 2024-02-14 19:49 | HP.PTEVAL_ITS ---
Patient's Visit Information Visit Information Visit Information: RYAN GRUBBS is a 83 year old F referred to Physical Therapy by Dr. Abeba Castanon DO with a diagnosis of CERVICAL RADICULOPATHY WITH CERVICAL AND UPPER BACK MUSCLE TENSION. Date of Evaluation: 02/14/24 Physical Therapist: Argelia Chavarria PT, Cert MDT Visit Plan Frequency: 2x /Week Duration: 4-6 Weeks Plan: US TO PETR POSTERIOR NECK REGIONS X 8 MIN'S AT 1.2 W/CM2 X 6 -8 VISITS. MH AND STM NEEDED. PETR NECK, POSTURAL AND SHLD ROM, STRETCHING AND STRENGTHENING TO HELP MEET SET GOALS. 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 PAIN BASE OF HEAD. NECK STIFFNESS. PATIENT DENIES PETR UE SX'S. Present since: CLOSE TO A MONTH AGO Pain Scale: WORST 5/10, LEAST 0/10 Currently: 0/10 Commenced as a result of: NO APPARENT REASON Symptoms at onset: PAIN BASE OF SKULL TURNING HEAD Worse: TURNING HEAD, LIFTING SOMETHING HEAVY Better: HOLDING HEAD STILL LOOKING STRAIGHT AHEAD. 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 STATES SHE WAS ALSO PRESCRIBED SOMETHING THAT SHE SHOULDN'T DRIVE IF SHE TAKES BUT HASN'T TAKEN ANY YET. Dizziness: NO Tinnitus: NO Nausea: NO Shortness of Breath: NO Difficulty Swollowing: NO Gait: NORMAL - NO CHANGE Accidents: NO Unexplained weight loss: NO Imaging: RECENT NECK X-RAYS 02/10/24: FINDINGS: Osteopenia. Normal anterior atlantoaxial articulation. Normal odontoid process. Normal cervical lordosis. Diffuse moderate to marked uncovertebral and facet sclerosis. Diffuse intervertebral disc space narrowing. Osteophyte formation most marked at C5-6 and to the greatest degree C6-7. Minimal left carotid calcification. RAD/Cerv Spine 2 or 3 Views IMPRESSION: Osteopenia with diffuse moderate to marked cervical spondylosis. PMH: HYPOTHYROIDISM, ASTHMA, COPD Objective Objective: Sitting Posture/Standing Posture: FORWARD HEAD. ROUNDED SHOULDERS. NO TORTICOLLIS. Active Correction of posture: ABLE TO PARTIALLY CORRECT. DOES NOT MAINTAIN. Other Observations: INDEP GAIT AND TRANSFERS. NO AD USE. Sensory deficit: PETR UE LIGHT TOUCH SENSATION GROSSLY INTACT AND SYMMETRICAL ROM deficit: PETR UE ELEVATION TO APPROX 110 DEG WITH C/O PETR POST SHLD PAIN AT THE END OF THE AVAILABLE ROM. PETR SHLD ER TIGHTNESS. ABLE TO GET PETR HANDS INTO SMALL OF BACK. FULL PETR ELBOW ROM. ABLE TO OPEN AND CLOSE HANDS TO FULL FIST. ABLE TO OPPOSE ALL FINGERS. Motor deficit: PETR SHLD STRENGTH GROSSLY 4-/5 IN AVAILABLE ROM. PETR ELBOWS 4- /5. 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 Reflexes: UNABLE TO ELICIT PETR UE DTR'S. Dural Signs: NEGATIVE Cervical Mvmt Loss: Flex: MIN - INCREASE - NW Pro: NIL Ext: EDILSON Ret: EDILSON RSB: EDILSON - INCREASES - NW LSB: EDILSON - INCREASES - NW R Rot: EDILSON - INCREASES - NW L Rot: EDILSON - INCREASES - NW Postural strength: POOR Palpation: TENDERNESS WITH PALPATION OF PETR OCCIPUT REGIONS AND ALONG PETR UPPER TRAPS. INCREASED MUSCLE TONE PETR UPPER AND MIDDLE TRAPS AND MULTIPLE TRIGGER POINTS ALONG SCALENES AND TRAPS. Balance/Special Test Scores Oswestry Neck Score: 12 Goals Goal 1:: DECREASE C/O OCCIPUT, NECK AND SHLD PAIN BY AT LEAST 50% TO EASE ADL'S Goal Time Frame: 4-6 Weeks Goal 2:: PATIENT WILL REPORT BEING ABLE TO REACH, LIFT, TURN HER HEAD AND SLEEP 50% BETTER TO EASE ADL'S. Goal Time Frame: 4-6 Weeks Goal 3:: PATIENT WILL BE INDEP WITH A HEP FOR CONTINUED IMPROVEMENT ONCE FORMAL PHYSICAL THERAPY CONCLUDES. Goal Time Frame: 4-6 Weeks Rehabilitation Potential Physical Therapy Diagnosis: THIS PATIENT PRESENTS TO PT WITH POSTURAL, NECK AND SHLD PAIN, WEAKNESS AND STIFFNESS NEGATIVELY IMPACTING HER ADL'S. Rehabilitation Potential: Good Anticipated Interventions Patient/Client Instruction: Educate patient on: Condition, Plan of Care and Risk Factors For the Purpose of:: To improve self management Therapeutic Exercise to Include: Strength training, Body mechanics, Postural training, Flexibilty training, Neuromotor development and Scapular Strength/Stabilization For the Purpose of:: To decrease pain, To increase ROM, To improve muscle performance and motor function, To increase tolerance to activity/condition/position, To improve ability of physical actions for home/community/work/leisure, To decrease soft tissue restriction, To increase flexibility/ROM and To improve self management Manual Therapy Techniques to Include: Trigger point massage and Soft tissue mobilization For the Purpose of:: To decrease pain, To increase ROM, To improve nutrient delivery to tissue and To improve muscle performance and motor function Thermo therapy (hot pack): Yes Ultrasound (thermal/non thermal): Yes For the Purpose of:: To decrease pain and To improve nutrient delivery to tissue Text: Thank you for the opportunity to evaluate your patient. For Medicare and Medicare HMO plans, please review the plan of care and approve it. It will need to be FAXED BACK to us at [phone] for Medicare purposes. For Medicare only, by signing this I certify the plan of care. Please let me know if there are questions or concerns regarding this plan of c are. Physician Signature: Date:
--- NOTE | 2024-03-27 13:56 | HP.PTDCSUM ---
Discharge Summary D/C summary: It has been my pleasure to treat RYAN GRUBBS referred by Dr. Abeba Castanon DO, with the diagnosis of CERVICAL RADICULOPATHY WITH CERVICAL AND UPPER BACK MUSCLE TENSION for a total of 9 visit(s). Discharge Date: 03/27/24 Please see the following information for a summary of their discharge status. Subjective Subjective: PATIENT REPORTS THINGS ARE PRETTY MUCH BACK TO NORMAL. SHE THINKS WORKING AT [employer] ACTUALLY HELPED. Pain Neck: Pain Intensity (Out of 10): Unrated Overall Improvement % Improvement: 98 Objective Objective/Function: PATIENT HAS BASICALLY RETURNED TO PLOF AND IS APPROPRIATE FOR AND AGREEABLE TO DISCHARGE. SHE IS INDEP WITH A HEP. UPON EXAM TODAY: ROM deficit: PETR UE ELEVATION TO APPROX 130 DEG WITH C/O PETR POST SHLD PAIN AT THE END OF THE AVAILABLE ROM. PETR SHLD ER TIGHTNESS. ABLE TO GET PETR HANDS INTO SMALL OF BACK. FULL PETR ELBOW ROM. ABLE TO OPEN AND CLOSE HANDS TO FULL FIST. ABLE TO OPPOSE ALL FINGERS. Motor deficit: PETR SHLD STRENGTH GROSSLY 4-/5 IN AVAILABLE ROM. PETR ELBOWS 4-/5. 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 Dural Signs: NEGATIVE Cervical Mvmt Loss: Flex: NIL Pro: NIL Ext: MOD Ret: MOD TO EDILSON RSB: MOD LSB: MOD TO EDILSON R Rot: MOD L Rot: MIN TO PADMA Postural strength: FAIR Palpation: INCREASED MUSCLE TONE PETR UT'S AND CERVICAL MUSCULATURE BUT NO ACUTE TENDERNESS. Goals Goal 1:: DECREASE C/O OCCIPUT, NECK AND SHLD PAIN BY AT LEAST 50% TO EASE ADL'S Goal Progress: Goal Met Goal 2:: PATIENT WILL REPORT BEING ABLE TO REACH, LIFT, TURN HER HEAD AND SLEEP 50% BETTER TO EASE ADL'S. Goal Progress: Goal Met Goal 3:: PATIENT WILL BE INDEP WITH A HEP FOR CONTINUED IMPROVEMENT ONCE FORMAL PHYSICAL THERAPY CONCLUDES. Goal Progress: Goal Met Plan Plan: D/C. D/C Information d/c sentence: If there are questions or concerns regarding this patient's physical therapy, please feel free to call me at [phone]. Thank you for the referral of this patient. Sincerely, Argelia Chavarria, PT, Cert MDT Balance/Gait/Functional tests Balance/Special Test Scores Oswestry Neck Score: 0 Improvement % Improvement: 98
== END 2024-03-27 19:00 | disposition home or self-care (01) ==
LOC: PT 13:30
PROVIDERS: PCP Internal Medicine; Referring Provider Internal Medicine; Visit Provider Internal Medicine
DX: M54.12 Radiculopathy, cervical region (principal); M62.830 Muscle spasm of back
CPT/HCPCS: 97035; 97110; 97140; 97162; 97530

== ENCOUNTER → 2024-03-28 | Outpatient (CLI) | payer MEDICARE, SELFPAY ==
--- NOTE | 2024-03-28 12:14 | BD_ITS ---
STUDY: DUAL ENERGY X-RAY ABSORPTIOMETRY / DXA REASON FOR EXAM: Female, 83 years old. Z780 TECHNIQUE: Bone Mineral Density (BMD) measurements of lumbar spine and bilateral hips were obtained. COMPARISON: Comparison is made with prior study March 24, 2022. FINDINGS: Lumbar Spine (L1-L4): g/cm2 (0.917) / T-score (-1.1) / Z-score (1.7) Findings are suggestive of osteopenia with a low fracture risk. Left Femur Total: g/cm2 (0.843) / T-score (-0.8) / Z-score (1.4) Left Femoral Neck: g/cm2 (0.695) / T-score (-1.4) / Z-score (1.0) Right Femur Total: g/cm2 (0.888) / T-score (-0.4) / Z-score (1.8) Right Femoral Neck: g/cm2 (0.748) / T-score (-0.9) / Z-score (1.5) The T-Scores on the most recent prior examination were: Lumbar Spine (L1-L4): There has been improvement of bone density since the previous examination. Left Femur Total: which represents an improvement of 3.6%. Right Femur Total: which represents an improvement of 0.9%. BD/Dexa Bone Density Study IMPRESSION: The patient is considered osteopenic as outlined below according to World [employer] Organization (WHO) criteria with a low fracture risk. There has been improvement of bone density since the previous examination. Reference Information: The T-score is the number of standard deviations above or below the standard which is normal for young adults at their peak bone mineral density. The World Health Organization (WHO) interprets the T-scores as follows: Above -1 Normal bone density Between -1 and -2.5 Osteopenia Equal to / or below -2.5 Osteoporosis As a practical clinical guideline, osteopenia may be graded as follows: Mild -1 through -1.5 Moderate -1.6 through -2.0 Severe -2.1 through -2.4 The Z-score is the number of standard deviations above or below age-matched controls. A Z-score of less than -1.5 would be considered abnormal. References: 1. NIH Osteoporosis and Related Bone Diseases www osteo.org 2. International Society for Clinical Densitometry www iscd.org 3. National Osteoporosis Foundation www nof.org Electronically Signed: Constantine Marquez MD at 14:17 EDT ,
== END | disposition home or self-care (01) ==
LOC: OPBD 12:13
PROVIDERS: PCP Internal Medicine; Referring Provider Internal Medicine; Visit Provider Internal Medicine
DX: Z78.0 Asymptomatic menopausal state (principal)
CPT/HCPCS: 77080

== ENCOUNTER → 2024-04-18 | Outpatient (CLI) | payer MEDICARE, SELFPAY ==
[2024-04-18 15:40] LABS: Absolute Lymphocyte Count 1.66 X10^3/uL (0.83-4.51); Absolute Neutrophil Count 5.3 X10^3/uL (2.0-7.7); Basophil# 0.03 X10^3/uL; Basophil% 0.4 % (0-1); Eosinophil# 0.16 X10^3/uL; Hematocrit 43.3 % (37-47); Hemoglobin 13.5 g/dL (12.0-15.0); Lymphocyte # 1.66 X10^3/ul (0.83-4.51); Lymphocyte % 20.6 % (19-41); Mean Corp Hgb Conc 31.2 g/dL (32-36); Mean Corpuscular Hgb 27.2 pg (27.0-32.0); Mean Corpuscular Volume 87.3 fL (81-99); Mean Platelet Vol. 9.7 fl (6.2-12.0); Monocyte# 0.82 X10^3/uL; Monocyte% 10.2 % (0-10); NRBC Flagged by Analyzer 0 % (0-5); Neutrophil # 5.34 X10^3/uL (2.7-7.7); Neutrophil % 66.4 % (47-70); Platelet Count 332 K/mm3 (150-450); RBC Distribution Width CV 13.9 % (11.6-14.6); RBC Distribution Width SD 44.6 fl (35.1-43.9); Red Blood Count 4.96 M/mm3 (4.2-5.4)
[2024-04-18 16:10] LABS: AST(SGOT) 15 U/L (15-37); Alanine Aminotransfer ALT/SGPT 20 U/L (13-56); Albumin, Serum 3.6 g/dL (3.2-5.0); Alkaline Phosphatase 92 U/L (45-117); Anion Gap 7 (5-15); BUN 22 mg/dL (7-18); BUN/Creat Ratio 27.3 RATIO (10-20); Calcium,Total 9.2 mg/dL (8.5-10.1); Chloride 106 mmol/L (98-107); Cholesterol 159 mg/dL (200); Creatinine, Serum 0.81 mg/dL (0.55-1.02); EST Glomerular Filtration Rate 72 mL/min (>60); Est Glom Filt Rate - Afr Amer 87 mL/min (>60); Globulin 3.7 g/dL (2.2-4.2); Glucose 108 mg/dL (74-106); High Density Lipoprotein 64 mg/dL; Potassium 3.7 mmol/L (3.5-5.1); Protein, Total 7.3 g/dL (6.4-8.2); Sodium Level 140 mmol/L (136-145); Triglycerides 71 mg/dL; Very Low Density Lipoprotein 14 mg/dL (5-40)
== END | disposition home or self-care (01) ==
LOC: MTLAB 12:36
PROVIDERS: PCP Internal Medicine; Referring Provider Internal Medicine; Visit Provider Internal Medicine
DX: E03.9 Hypothyroidism, unspecified (principal); E78.49 Other hyperlipidemia; R80.9 Proteinuria, unspecified; E55.9 Vitamin D deficiency, unspecified; R73.01 Impaired fasting glucose
CPT/HCPCS: 36415; 80053; 80061; 82306; 84443; 85025

== ENCOUNTER → 2024-04-19 | Outpatient (CLI) | payer MEDICARE, SELFPAY ==
--- NOTE | 2024-04-19 15:22 | RAD_ITS ---
INDICATION: cough EXAMINATION/TECHNIQUE: X-RAY - XR Chest 2 Views COMPARISON: Prior study dated: 03/26/2018 FINDINGS: LINES/DEVICES: None. LUNGS: Streaky opacities in the lung bases greater on the left, appear increased compared to the prior. This may be related to chronic interstitial disease with superimposed infiltrate is difficult to exclude. No consolidation. No pneumothorax. MEDIASTINUM: Unremarkable. CARDIAC SILHOUETTE: Not enlarged. BONES AND SOFT TISSUES: No acute abnormalities. RAD/Chest PA and Lateral IMPRESSION: Increased bibasilar interstitial infiltrates. Pneumonia not excluded. CT follow-up suggested to confirm resolution. Electronically Signed: Erika Hi MD at 15:45 EDT ,
[2024-04-19 18:26] LABS: Microalbumin:Creatinine Ratio 49.4 mg/g CRE (<30 mg/g CRE)
== END | disposition home or self-care (01) ==
LOC: LABSPEC 14:58 → MTRAD 15:20
PROVIDERS: PCP Internal Medicine; Referring Provider Physician Assistant; Visit Provider Physician Assistant
DX: E03.9 Hypothyroidism, unspecified (principal); E78.49 Other hyperlipidemia; R80.9 Proteinuria, unspecified; E55.9 Vitamin D deficiency, unspecified; R73.01 Impaired fasting glucose
CPT/HCPCS: 71046; 82043; 82570

== ENCOUNTER → 2024-06-20 | Outpatient (CLI) | payer MEDICARE, SELFPAY ==
--- NOTE | 2024-06-20 14:12 | BI_ITS ---
MAMMOGRAPHY - BILATERAL SCREENING REASON FOR EXAM: Female, 83 years old. Routine annual screening examination. PERTINENT HISTORY: Non-contributory. TECHNIQUE: Digital bilateral breast fadia (3D mammographic acquisition) in the CC and MLO projections. 2-D mediolateral oblique (MLO) and craniocaudad (CC) views of both breasts were obtained. CAD: Full Field Digital Mammography with Computer Added Detection was performed. COMPARISON: Comparison is made with prior study dated June 16, 2023 and March 24, 2022. FINDINGS: Breast Composition: There are scattered areas of fibroglandular density. There are no dominant masses or suspicious calcifications. No other significant abnormalities are identified. There has been no significant change since the prior study. BI/SCRN MAMM (CAD)W/FADIA BILAT IMPRESSION: Stable bilateral screening mammogram. Yearly follow-up mammogram recommended. (A) ASSESSMENT CATEGORY: BIRADS Category 1: Negative. A letter regarding these results will be sent to the patient by the facility within 30 days. Approximately 10% of breast cancers are not detected by mammography. A normal mammogram should not delay biopsy of a clinically suspicious abnormality. [id number] Electronically Signed: Constantine Marquez MD at 14:58 EST ,
== END | disposition home or self-care (01) ==
LOC: OPBI 14:12
PROVIDERS: PCP Internal Medicine; Referring Provider Internal Medicine; Visit Provider Internal Medicine
DX: Z12.31 Encounter for screening mammogram for malignant neoplasm of breast (principal)
CPT/HCPCS: 77063; 77067

== ENCOUNTER → 2024-09-13 | Outpatient (CLI) | payer MEDICARE, SELFPAY | END | disposition home or self-care (01) | LOC: LABSPEC 12:35 | PROVIDERS: PCP Internal Medicine; Visit Provider Physician Assistant | DX: R82.90 Unspecified abnormal findings in urine (principal) | CPT/HCPCS: 87086; 87088; 87186 ==

== ENCOUNTER → 2024-09-21 | Outpatient (CLI) | payer MEDICARE, SELFPAY | END | disposition home or self-care (01) | LOC: LABSPEC 16:16 | PROVIDERS: PCP Internal Medicine; Visit Provider Physician Assistant Surgical | DX: R30.0 Dysuria (principal) | CPT/HCPCS: 87077; 87086; 87088; 87186 ==

== ENCOUNTER → 2025-01-10 | Outpatient (CLI) | payer MEDICARE, SELFPAY ==
--- NOTE | 2025-01-10 11:06 | RAD_ITS ---
PROCEDURE: CHEST PA AND LATERAL 01/10/2025 REASON FOR EXAM: COUGH TECHNIQUE: CHEST PA AND LATERAL COMPARISON: None FINDINGS: Hardware: None Heart: The heart size is normal. Calcification of the aortic arch. Mediastinum: The mediastinal contour is unremarkable. Lungs: Small left pleural effusion with left basilar infiltrate. Hyperinflation. Bones: Degenerative changes are identified within the thoracic spine. Osteopenia of the thoracic vertebrae. RAD/Chest PA and Lateral IMPRESSION: Small left pleural effusion with left basilar infiltrate. Hyperinflation. Reading Location: [place] [id number]
== END | disposition home or self-care (01) ==
LOC: MTRAD 11:06
PROVIDERS: PCP Internal Medicine; Referring Provider Physician Assistant; Visit Provider Physician Assistant
DX: R05.9 Cough, unspecified (principal)
CPT/HCPCS: 71046

== ENCOUNTER → 2025-04-03 | Outpatient (CLI) | payer MEDICARE, SELFPAY ==
[2025-04-03 15:34] LABS: Color, Urine Yellow (Yellow); Glucose, Dipstick Normal (Normal); Ketone-Dipstick Negative (Negative); Leukocyte Esterase-Dipstick 100 /ul (Negative); Nitrite-Dipstick Negative (Negative); Occult Blood-Urine 10 /ul (Negative); Protein-Dipstick 30 mg/dl (Negative); Specific Gravity, Urine 1.020 (1.002-1.030); Urine Bilirubin Dipstick Negative (Negative)
[2025-04-03 15:40] LABS: Hematocrit 40.3 % (37-47); Hemoglobin 13.2 g/dL (12.0-15.0); Immature Granulocytes Count 0.020 X10^3/uL (0.0-0.0); Mean Corp Hgb Conc 32.8 g/dL (32-36); Mean Corpuscular Volume 87.2 fL (81-99); Mean Platelet Vol. 10.4 fl (6.2-12.0); NRBC Flagged by Analyzer 0 % (0-5); Platelet Count 254 K/mm3 (150-450); RBC Distribution Width CV 13.7 % (11.6-14.6); RBC Distribution Width SD 43.9 fl (35.1-43.9); Red Blood Count 4.62 M/mm3 (4.2-5.4); White Blood Count 6.6 K/mm3 (4.4-11.0)
[2025-04-03 15:54] LABS: Red Blood Cells-Urine 0-5 SEEN /hpf (0-5); Squamous Epithelial Cells - UA 0-5 SEEN /hpf (5-10)
[2025-04-03 15:55] LABS: Mucous, Urine RARE /hpf (<or=2+)
[2025-04-03 16:34] LABS: Creatinine, Urine (random) 93.60 mg/dL (28.00-217.00); Microalbumin,Random Urine 93.3 mg/L (<20 mg/L)
[2025-04-03 17:07] LABS: AST(SGOT) 20 U/L (<=31); Alanine Aminotransfer ALT/SGPT 15 U/L (<=34); Albumin, Serum 4.0 g/dL (3.4-4.8); Alkaline Phosphatase 81 U/L (35-104); Anion Gap 11 (5-15); BUN 27 mg/dL (4-19); BUN/Creat Ratio 34.0 RATIO (10-20); Calcium,Total 9.5 mg/dL (7.6-11.0); Carbon Dioxide 25.9 mmol/L (21.0-32.0); Chloride 103 mmol/L (98-108); Cholesterol 154 mg/dL (<=200); Globulin 2.5 g/dL (2.2-4.2); Glucose 109 mg/dL (70-99); Low Density Lipoprotein Calc. 77 mg/dL; Potassium 4.5 mmol/L (3.3-5.1); Triglycerides 69 mg/dL; Very Low Density Lipoprotein 14 mg/dL (5-40); cholesterol:hdl ratio screen 2.45
== END | disposition home or self-care (01) ==
LOC: MTLAB 11:40
PROVIDERS: PCP Internal Medicine; Referring Provider Internal Medicine; Visit Provider Internal Medicine
DX: E03.9 Hypothyroidism, unspecified (principal); E78.49 Other hyperlipidemia; R80.9 Proteinuria, unspecified; R73.01 Impaired fasting glucose
CPT/HCPCS: 36415; 80053; 80061; 81001; 82043; 82570; 84443; 85025

== ENCOUNTER → 2025-06-25 | Outpatient (CLI) | payer MEDICARE, SELFPAY ==
--- NOTE | 2025-06-25 14:55 | BI_ITS ---
EXAM: SCRN MAMM (CAD)W/FADIA BILAT DATE: 06/25/2025 CLINICAL HISTORY: F, Age 84 y/o , BREAST CA SCREENING TECHNIQUE: Procedure Code: [id number] Modality: MG Procedure: SCRN MAMM (CAD)W/FADIA BILAT COMPARISON: Prior exam(s) were compared FINDINGS: TISSUE DENSITY: There are scattered areas of fibroglandular density. Bilateral Breast Mammographic Findings: No significant masses, calcifications or other abnormalities are identified. BI/SCRN MAMM (CAD)W/FADIA BILAT IMPRESSION: No mammographic evidence of malignancy. OVERALL FINAL ASSESSMENT BI-RADS 1: NEGATIVE. RECOMMENDATION: Routine annual follow-up in 1 Year Additional Recommendation none A letter with findings and recommendations will be mailed to the patient. Reading Location: [id number]
== END | disposition home or self-care (01) ==
LOC: OPBI 14:39
PROVIDERS: PCP Internal Medicine; Referring Provider Internal Medicine; Visit Provider Internal Medicine
DX: Z12.31 Encounter for screening mammogram for malignant neoplasm of breast (principal)
CPT/HCPCS: 77063; 77067